=== PATIENT | male | born 1975 | race Caucasian/White ===

== ENCOUNTER 2019-10-17 17:49 | Emergency (ER) | payer MEDICAID, SELFPAY ==
[2019-10-17 17:49] VITALS: BP 130/76; PULSE 94; RESP 18; TEMP 36.7; O2SAT 95
[2019-10-17 18:04] VITALS: BP 155/93; PULSE 82; RESP 14; TEMP 36.8; O2SAT 96; BMI 25.1
--- NOTE | 2019-10-17 18:30 | PC.NURSE ---
PT STATES THAT HE DOES NOT HAVE A PLAN ON HOW HE WOULD HARM HIMSELF. HE STATES THAT HE IS HAVING SI BECAUSE OF THE PAIN IN HIS BACK. PT IS MUMBLING AND WHEN I ASKED WHAT HE SAYS HE STATES I'M TALKING TO MYSELF . I ASKED HIM IF HE WANTED TO BE SEEN FOR PSYCHIATRIC REASONS AND HE STATES MY MUSCLE RELAXERS ARE NOT WORKING .
--- NOTE | 2019-10-17 18:35 | PC.NURSE ---
during nurse's assessment pt denies SI and denies HI. pt states, my head is just messed up-I've got fucked up feelings .
--- NOTE | 2019-10-17 18:37 | ED_ITS ---
Entered by Nayeli Sanchez, acting as scribe for Oct 17, 2019 17:49 HPI - Psych General: Chief Complaint: Psychiatric Symptoms Stated Complaint: SI Time Seen by Provider: 10/17/19 18:37 Source: patient Mode of arrival: other (police) History of Present Illness: HPI Narrative: 44 yo m came to the er with police. Onset was today. PT states that he thought that he was drinking too much and he called the police so that they could bring him here. Exacerbating factors: alcohol and other (smoke) Associated symptoms: Deny homicidal ideation or suicidal ideation Treatments prior to arrival: none Review of Systems General: Reports: 10 or more systems reviewed and unremarkable except in HPI and below Const: Denies: fever Eyes: Denies: change in vision ENMT: Denies: throat pain Card: Denies: chest pain GI: Denies: abdominal pain : Denies: flank pain Musc: Denies: neck pain Skin/Breast: Denies: rash Neuro: Denies: headache Psych: Denies: anxiety, suicidal ideation or homicidal ideation PFSH ED PFSH: Statuses (acute, chronic, etc) shown below reflect problem list status as previously entered and may not be historically accurate Social History Smoking and tobacco status: current every day smoker Physical Exam Const: COMMON NORMALS: no apparent distress GENERAL APPEARANCE: cooperative Eye: COMMON NORMALS: PERRL GENERAL EYE: normal appearance of both eyes PUPIL: Yes PERRL Chest: COMMONS NORMALS: inspection of chest normal Resp: COMMON NORMALS: normal respiratory effort Psych: COMMON NORMALS: mental status grossly normal and thought process normal ATTITUDE: Yes withdrawn and Yes uncooperative ACTIVITY/MOTOR BEHAVIOR: Yes appropriate eye contact and Yes restless MOOD & AFFECT: Yes irritable THOUGHT PROCESS: normal thought process THOUGHT CONTENT: Yes normal thought content INSIGHT: insight good JUDGEMENT: fair Discharge Plan Discharge Patient Disposition: Left Against Medical Advice Prescriptions: No Action cyclobenzaprine 10 mg tablet 10 mg PO Q8H PRN (Reason: Muscle Spasm) RF: 0 baclofen 20 mg tablet 20 mg PO TID RF: 0 Zoloft 50 mg Tablet 50 mg PO DAILY RF: 0 Referrals: NOT ON FILE,DOCTOR [Primary Care Provider] - Discharge Date/Time: 10/17/19 19:59 Coding Level of Care Code ED Solar Sales Assessor for Chg Fwd Exam Problem Focused The documentation recorded by the Daniel navarro Stephanie Lyn, accurately reflects the service I personally performed and the decisions made by me, Gregg Saha, Oct 17, 2019 17:49
--- NOTE | 2019-10-17 19:09 | PC.NURSE ---
upon entry to the room pt was placed in paper scrubs, all belongings collected, and deployment technician at pt's bedside
[2019-10-17 20:01] VITALS: RESP 14; TEMP 36.8; O2SAT 96
== END 2019-10-17 19:59 | disposition left against medical advice (07) ==
PROVIDERS: Emergency Provider Family Medicine
DX: Z53.21 Procedure and treatment not carried out due to patient leaving prior to being seen by health care provider (principal); F17.210 Nicotine dependence, cigarettes, uncomplicated
CPT/HCPCS: 99281

== ENCOUNTER 2019-10-25 12:26 | Emergency (ER) | payer MEDICAID, SELFPAY ==
[2019-10-25 13:10] VITALS: BP 116/69; PULSE 90; RESP 20; TEMP 36.6; O2SAT 99; BMI 25.1
--- NOTE | 2019-10-25 13:36 | ED_ITS ---
HPI - Extremity Problem General: Chief complaint: Extremity Injury, Upper Stated complaint: right hand swelling Time Seen by Provider: 10/25/19 13:17 History of Present Illness: HPI Narrative: Patient comes in today with injury to the right index finger. Patient reports 3 days ago he had hit his dorsal finger with a hatchet. Patient appears well. Patient appears in moderate pain. Patient reports history of chronic back pain and bipolar and schizophrenia. Review of Systems General: Reports: 10 or more systems reviewed and unremarkable except in HPI and below Musc: Reports: extremity pain (right index finger) PFSH ED PFSH: Statuses (acute, chronic, etc) shown below reflect problem list status as previously entered and may not be historically accurate Social History Smoking and tobacco status: current every day smoker Physical Exam Const: COMMON NORMALS: no apparent distress and oriented x3 GENERAL APPEARANCE: cooperative HENMT: COMMON NORMALS: normocephalic and external nose normal HEAD & SCALP: normal to inspection and normocephalic FACE & SINUS: normal facial exam NOSE: external nose normal GENERAL EAR: hearing not grossly impaired MOUTH: oral and palatal mucosa normal THROAT: posterior oropharynx normal Eye: COMMON NORMALS: PERRL and EOMs intact bilaterally PUPIL: Yes PERRL Neck/C-Spine: COMMON NORMALS: full ROM and no lymphadenopathy Lymph: LYMPHATIC: no lymphedema noted Chest: COMMONS NORMALS: inspection of chest normal and palpation of chest normal Resp: COMMON NORMALS: normal respiratory effort and clear to auscultation bilaterally AUSCULTATION: clear to auscultation bilaterally Cardio: COMMON NORMALS: regular rate and regular rhythm RATE: regular rate RHYTHM: regular rhythm GI: COMMON NORMALS: normal to inspection, nondistended, normoactive bowel sounds and non-tender : COMMON NORMALS: Yes no CVA tenderness BLADDER/KIDNEY EXAM: Yes no CVA tenderness Back/Pelvis: COMMON NORMALS: no CVA tenderness and thoracic and lumbar spine normal to inspection Extremity: NARRATIVE EXTREMITY EXAM: right index finger has healing 2 cm wound to dorsal finger, normal ROM, also note distal healing would that is closed Neuro: COMMON NORMALS: oriented x3, moves all extremities and no focal motor deficits Psych: COMMON NORMALS: mental status grossly normal and cooperative Skin: NARRATIVE SKIN EXAM: wound noted to right index finger Course Vital Signs: Vital signs: Vital Signs Temperature 97.9 F 10/25/19 13:10 Pulse Rate 90 10/25/19 13:10 Respiratory Rate 20 H 10/25/19 13:10 Blood Pressure 116/69 10/25/19 13:10 Pulse Oximetry 99 10/25/19 13:10 MDM - Extremity (Nontraumatic) MDM Narrative: Medical decision making narrative: Patient comes in today for complaints of injury to the right index finger. Patient is concerned about infection. On exam we note an open wound to the proximal dorsal right index finger. It has whitish exudate to the center of the wound. Patient also has a wound to the distal part of the finger to that is closed and healing. Differential diagnosis includes fracture, foreign body, wound infection, laceration. X-rays of the hand noted no fracture or osteomyelitis. Reviewed exam with patient recommended antibiotics for infection. Recommended keeping wound clean and dry and good wound care. Patient reported understanding and agreed to plan. Discharge Plan Discharge Patient Disposition: Home, Self-Care Clinical Impression: Wound infection Laceration of right index finger Qualifiers: Encounter type: initial encounter Damage to nail status: without damage Foreign body presence: with foreign body Qualified Code(s): S61.220A - Laceration with foreign body of right index finger without damage to nail, initial encounter Condition: Stable Prescriptions: New cephalexin 500 mg capsule 500 mg PO TID 10 Days Qty: 30 RF: 0 No Action cyclobenzaprine 10 mg tablet 10 mg PO Q8H PRN (Reason: Muscle Spasm) RF: 0 baclofen 20 mg tablet 20 mg PO TID RF: 0 Zoloft 50 mg Tablet 50 mg PO DAILY RF: 0 Discharge Orders: Discharge Order (Routine); Ordered 10/25/19 Ordered By: Isidoro Giles Referrals: Ceasar Garcia MD [Primary Care Provider] - Discharge Diet: Usual diet Discharge Activity: Limit activity as instructed Activity Restrictions/Additional Instructions: Clean wound daily and when dirty Use mild soap and water Acetaminophen and ibuprofen for pain Cover wound with clean dry dressing Protect wounded finger Take antibiotics as directed Follow-up with primary care in one week Return to ER for high fever worsening pain or new concerns Coding Level of Care Code ED Sports Medicine Physician for Justin Sadler Exam Problem Focused
--- NOTE | 2019-10-25 13:36 | XR_ITS ---
WS: [id number] Right hand, 3 views, 10/25/2019 Clinical Data: injury Comparison: None. Findings: No fractures or dislocations are seen. The epiphyses are normal. The soft tissues are unremarkable. T he joint spaces are normal. Negative right hand. XR/XR hand RT min 3V* [id number] Impression:
[2019-10-25] MEDS: tetanus-dipt-pertussis 0.5 mL SDV IM (14:43)
--- NOTE | 2019-10-25 14:53 | PC.NURSE ---
Irrigated wound to R 2nd finger, applied 2x2 to wound and secured with coban
== END 2019-10-25 14:53 | disposition home or self-care (01) ==
PROVIDERS: Emergency Provider Nurse Practitioner Family; PCP Family Medicine
DX: S61.220A Laceration with foreign body of right index finger without damage to nail, initial encounter (principal); L08.9 Local infection of the skin and subcutaneous tissue, unspecified; W26.8XXA Contact with other sharp object(s), not elsewhere classified, initial encounter; F17.210 Nicotine dependence, cigarettes, uncomplicated
CPT/HCPCS: 73130; 90472; 90715; 99282

== ENCOUNTER 2019-11-16 16:21 | Emergency (ER) | payer MEDICAID, SELFPAY ==
[2019-11-16 16:24] VITALS: BP 113/74; PULSE 90; RESP 18; TEMP 36.7; O2SAT 98; BMI 26.0
--- NOTE | 2019-11-16 17:04 | ED_ITS ---
HPI - Back Pain/Injury General: Chief Complaint: Back Pain/Injury Stated Complaint: BACK PAIN/ ETOH Time Seen by Provider: 11/16/19 16:37 Source: patient Mode of arrival: ambulatory Limitations: no limitations History of Present Illness: HPI Narrative: Patient is a 44-year-old male who presents to ED today with complaints of chronic lower back pain. Patient has been seen here in our facility several times for same symptoms. He states he has had follow-up through primary care as well as neurosurgery. Patient states he does follow with pain management in [place] but states they are only prescribing him diclofenac. He is also taking Zanaflex at night to help him sleep which he states is working well. Patient states his pain today is similar to his chronic pain. He has no new complaints at this time. MD elicited complaint: back pain Onset (ago): year(s) Timing: constant Similar Symptoms Previously: Yes Associated symptoms: Deny abdominal pain, chills, difficulty walking, dysuria, fever(s), nausea or vomiting Review of Systems Const: Denies: fever or chills Card: Denies: chest pain, palpitations or lightheadedness Resp: Denies: shortness of breath GI: Denies: abdominal pain, nausea or vomiting : Denies: flank pain, difficulty urinating or painful urination Musc: Reports: back pain (chronic); Denies: neck pain, extremity pain, extremity swelling, joint pain or joint swelling Skin/Breast: Denies: rash Neuro: Denies: headache, numbness in extremities, weakness in extremities, changes in sensation or difficulty walking Psych: Denies: suicidal ideation or homicidal ideation PFS ED PFSH: Statuses (acute, chronic, etc) shown below reflect problem list status as previously entered and may not be historically accurate Social History Smoking and tobacco status: current every day smoker Physical Exam Const: COMMON NORMALS: no apparent distress, average body habitus, oriented x3, no limitations, alert and well nourished ORIENTATION/CONSCIOUSNESS: Yes oriented to person, Yes oriented to place and Yes oriented to time Neck/C-Spine: COMMON NORMALS: full ROM CERVICAL SPINE: Yes cervical ROM normal and No cervical spine tenderness : COMMON NORMALS: Yes no CVA tenderness BLADDER/KIDNEY EXAM: Yes no CVA tenderness Back/Pelvis: COMMON NORMALS: no CVA tenderness and thoraco-lumbar ROM normal OTHER: pt has chronic pain over his L SI; no acute neurological findings on exam Neuro: COMMON NORMALS: oriented x3, no focal motor deficits, no sensory deficits noted and deep tendon reflexes 2+ bilaterally SENSORIUM/ORIENTATION: Yes alert, Yes oriented to person, Yes oriented to place and Yes oriented to time GAIT: Yes normal gait MOTOR EXAM: strength 5/5 throughout Course Vital Signs: Vital signs: Vital Signs Temperature 98.4 F 11/16/19 17:46 Pulse Rate 92 11/16/19 17:46 Respiratory Rate 16 11/16/19 17:46 Blood Pressure 124/70 11/16/19 17:46 Pulse Oximetry 98 11/16/19 17:46 MDM - Back Pain/Injury MDM Narrative: Medical decision making narrative: will write for steroids/zanaflex; says on pts meds that he takes flexeril and baclofen but pt states he is not taking these Discharge Plan Discharge Patient Disposition: Home, Self-Care Clinical Impression: Chronic back pain Qualifiers: Back pain location: low back pain Back pain laterality: left Sciatica presence: with sciatica Sciatica laterality: sciatica of left side Qualified Code(s): M54.42 - Lumbago with sciatica, left side Condition: Stable Prescriptions: New prednisone 10 mg tablet 60 mg PO DAILY 5 Days Qty: 30 RF: 0 Zanaflex 4 mg capsule 4 mg PO Q8H PRN (Reason: muscle spasticity) Qty: 20 RF: 0 No Action cyclobenzaprine 10 mg tablet 10 mg PO Q8H PRN (Reason: Muscle Spasm) RF: 0 baclofen 20 mg tablet 20 mg PO TID RF: 0 Zoloft 50 mg Tablet 50 mg PO DAILY RF: 0 Discharge Orders: Discharge Order (Routine); Ordered 11/16/19 Ordered By: Aida Dalton Referrals: Ceasar Garcia MD [Primary Care Provider] - Discharge Diet: Usual diet Discharge Activity: Resume usual activity Discharge Date/Time: 11/16/19 17:47 Coding Level of Care Code ED Validation Specialist for Chg Fwd Exam Problem Focused
[2019-11-16] MEDS: dexamethasone 10 mg/mL INJ 8 MG IM (17:25)
[2019-11-16] MEDS: orphenadrine 30 mg/mL Inj 2 mL 60 MG IM (17:28)
[2019-11-16 17:46] VITALS: BP 124/70; PULSE 92; RESP 16; TEMP 36.9; O2SAT 98
== END 2019-11-16 17:47 | disposition home or self-care (01) ==
PROVIDERS: Emergency Provider Physician Assistant; PCP Family Medicine
DX: M54.42 Lumbago with sciatica, left side (principal); G89.29 Other chronic pain; F17.210 Nicotine dependence, cigarettes, uncomplicated
CPT/HCPCS: 96372; 99281; 99284; J1100; J2360

== ENCOUNTER 2019-11-17 18:47 | Inpatient (IN) | payer MEDICAID, SELFPAY ==
--- NOTE | 2019-11-17 18:49 | ED_ITS ---
Entered by Ebony Hall, acting as scribe for Brenda Logan MD, MSM HPI - Psych General: Chief Complaint: Psychiatric Symptoms Stated Complaint: SI Time Seen by Provider: 11/17/19 18:49 Source: patient, EMS and RN notes reviewed Mode of arrival: EMS Limitations: no limitations PFSH ED PFSH: Statuses (acute, chronic, etc) shown below reflect problem list status as previously entered and may not be historically accurate Social History Smoking and tobacco status: current every day smoker Discharge Plan Discharge Prescriptions: No Action cyclobenzaprine 10 mg tablet 10 mg PO Q8H PRN (Reason: Muscle Spasm) RF: 0 baclofen 20 mg tablet 20 mg PO TID RF: 0 Zoloft 50 mg Tablet 50 mg PO DAILY RF: 0 prednisone 10 mg tablet 60 mg PO DAILY 5 Days Qty: 30 RF: 0 Zanaflex 4 mg capsule 4 mg PO Q8H PRN (Reason: muscle spasticity) Qty: 20 RF: 0 Coding Level of Care Code ED Pickling Operator for Justin Sadler
[2019-11-17 18:53] VITALS: BP 136/94; PULSE 73; RESP 20; TEMP 36.6; O2SAT 93
[2019-11-17 18:55] VITALS: BP 136/94; PULSE 73; RESP 20; TEMP 36.6; O2SAT 93
[2019-11-17 18:58] VITALS: BMI 26.0
--- NOTE | 2019-11-17 19:06 | ED_ITS ---
Entered by Kirstie Noel, acting as scribe for HPI - Psych General: Chief Complaint: Psychiatric Symptoms Stated Complaint: SI Time Seen by Provider: 11/17/19 18:49 Source: patient, EMS and RN notes reviewed Mode of arrival: EMS PFS ED PFSH: Statuses (acute, chronic, etc) shown below reflect problem list status as previously entered and may not be historically accurate Social History Smoking and tobacco status: current every day smoker Discharge Plan Discharge Prescriptions: No Action cyclobenzaprine 10 mg tablet 10 mg PO Q8H PRN (Reason: Muscle Spasm) RF: 0 baclofen 20 mg tablet 20 mg PO TID RF: 0 Zoloft 50 mg Tablet 50 mg PO DAILY RF: 0 prednisone 10 mg tablet 60 mg PO DAILY 5 Days Qty: 30 RF: 0 Zanaflex 4 mg capsule 4 mg PO Q8H PRN (Reason: muscle spasticity) Qty: 20 RF: 0 Coding Level of Care Code ED Electric Meter Setter for Justin Sadler
--- NOTE | 2019-11-17 19:11 | W.ED.PSYCH ---
HPI - Psych General: Chief Complaint: Psychiatric Symptoms Stated Complaint: SI Time Seen by Provider: 11/17/19 18:49 History of Present Illness: HPI Narrative: 44-year-old male with a history of multiple psychiatric visits, substance and alcohol abuse, and suicide attempt presents with suicidal ideation. He will not tell me about a plan. He only says I know you, you cock sucker . complaint: suicidal ideation Onset (ago): day(s) History of same: Yes Relieving factors: none Context: recent alcohol abuse Associated psychiatric symptoms: depression and suicidal ideation Associated symptoms: Deny auditory hallucinations If self harm: admits thoughts of self harm Review of Systems Const: Denies: fever or chills Eyes: Denies: change in vision or blurry vision ENMT: Denies: painful swallowing or post nasal drip Card: Denies: chest pain, palpitations, irregular heart rhythm or edema Resp: Denies: shortness of breath, productive cough, non-productive cough or wheezing GI: Denies: abdominal pain, nausea or vomiting : Denies: difficulty urinating or blood in urine Musc: Denies: neck pain, back pain, redness or joint warmth Skin/Breast: Denies: rash Neuro: Denies: headache, dizziness, vertigo or confusion Psych: Denies: auditory hallucinations PFSH ED PFSH: Statuses (acute, chronic, etc) shown below reflect problem list status as previously entered and may not be historically accurate Social History Smoking and tobacco status: current every day smoker Physical Exam Const: ORIENTATION/CONSCIOUSNESS: Yes oriented to person, Yes oriented to place and Yes oriented to time HENMT: COMMON NORMALS: normocephalic, external ears normal and external nose normal HEAD & SCALP: normocephalic; no scalp tenderness FACE & SINUS: normal facial exam NOSE: external nose normal and no nasal discharge EXTERNAL EAR: Yes external ears normal MOUTH: tongue normal THROAT: posterior oropharynx normal; no peritonsillar mass Eye: COMMON NORMALS: PERRL, EOMs intact bilaterally and conjunctivae normal EYELID: eyelids normal CONJUNCTIVA: Yes conjunctivae normal PUPIL: Yes PERRL Chest: COMMONS NORMALS: inspection of chest normal CHEST: No tenderness Resp: COMMON NORMALS: clear to auscultation bilaterally EFFORT & INSPECTION: No tachypneic, No respiratory distress, No retractions, No uses accessory muscles and No tracheal deviation AUSCULTATION: clear to auscultation bilaterally, no rhonchi, no wheezes and lung sounds not diminished Cardio: COMMON NORMALS: regular rate and regular rhythm RATE: regular rate RHYTHM: regular rhythm HEART SOUNDS: no murmurs PERIPHERAL PULSES: radial pulses present GI: INSPECTION: No abdominal distension AUSCULTATION: No hyperactive bowel sounds and No hypoactive bowel sounds PALPATION: No guarding and No rigid PERCUSSION: no dullness to percussion and no tympanic to percussion Neuro: SENSORIUM/ORIENTATION: Yes oriented to person, Yes oriented to place and Yes oriented to time Psych: COMMON NORMALS: speech normal and denies hallucinations ATTITUDE: Yes withdrawn and Yes guarded SPEECH: Yes normal speech MOOD & AFFECT: Yes hostile affect THOUGHT CONTENT: Yes suicidality INSIGHT: limited Skin: COMMON NORMALS: no rashes or lesions noted GENERAL SKIN EXAM: no rashes or lesions noted MDM - Psych Lab Data: Labs: Lab Results 11/17/19 11/17/19 11/17/19 Range/Units 18:59 18:59 19:17 WBC 11.1 H (4.0-10.0) 10^3/ uL RBC 4.23 (4.1-5.3) 10^6/u L Hgb 13.8 (11.7-16.6) g/dL Hct 41.4 L (42.0-52.0) % MCV 97.9 H (80-94) fL MCH 32.6 (28.0-34.0) pg MCHC 33.3 (30.0-36.0) g/dL RDW 12.2 (12.1-15.1) % Plt Count 250 (130-400) 10^3/c mm MPV 10.3 (7.4-10.4) fL Neut % (Auto) 65.8 % Lymph % (Auto) 28.7 % Victoria % (Auto) 5.0 % Eos % (Auto) 0.0 % Baso % (Auto) 0.2 % Neut # (Auto) 7.3 (1.8-7.7) 10^3/u L Lymph # (Auto) 3.2 (0.8-4.8) 10^3/u L Victoria # (Auto) 0.6 (0.2-0.9) 10^3/u L Eos # (Auto) 0.0 (0.0-0.8) 10^3/u L Baso # (Auto) 0.0 (0.0-0.1) 10^3/u L Nucleated RBC % (a uto) 0 % Nucleated RBCs # 0.0 /100WBC Sodium (136-145) mmol/L Potassium (3.5-5.1) mmol/L Chloride (98-107) mmol/L Carbon Dioxide (22-29) mmol/L Anion Gap (5-19) BUN (6-20) mg/dL Creatinine (0.7-1.2) mg/dL GFR Calculation (90-130) mL/min Glucose (74-109) mg/dL Calcium (8.5-10.5) mg/dL Total Bilirubin (0.15-1.2) mg/dL AST (0-40) U/L ALT (0-41) U/L Alkaline Phosphata se (40-130) IU/L Total Protein (6.6-8.7) g/dL Albumin (3.5-5.2) g/dL Globulin (1.3-4.6) g/dL TSH (0.27-4.20) uIU/ mL Urine Color Yellow (Yellow) Urine Appearance Clear (CLEAR) Urine pH 5 (5-7) Ur Specific Gravit y 1.005 (1.005-1.030) Urine Protein Neg (Negative) Urine Glucose (UA) Norm (Normal) Urine Ketones Negative (Negative) Urine Occult Blood Neg (Negative) Urine Nitrate Negative (Negative) Urine Bilirubin Neg (NEGATIVE) Urine Urobilinogen Norm (Negative) mg/dL Ur Leukocyte Nicolasa ase Negative (Negative) Salicylates (3-10) mg/dL Urine Opiates Scre en Negative (Negative) ng/mL Acetaminophen (10-30) ug/mL Ur Barbiturates Sc reen Negative (Negative) ng/mL Ur Phencyclidine S crn Negative (Negative) ng/mL Ur Amphetamines Sc reen Negative (Negative) ng/mL U Benzodiazepines Scrn Negative (Negative) ng/mL Urine Cocaine Scre en Negative (Negative) ng/mL U Marijuana (THC) Screen Negative (Negative) ng/mL Ethyl Alcohol (0-10) mg/dL 02/01/20 Range/Units 19:17 WBC (4.0-10.0) 10^3/ uL RBC (4.1-5.3) 10^6/u L Hgb (11.7-16.6) g/dL Hct (42.0-52.0) % MCV (80-94) fL MCH (28.0-34.0) pg MCHC (30.0-36.0) g/dL RDW (12.1-15.1) % Plt Count (130-400) 10^3/c mm MPV (7.4-10.4) fL Neut % (Auto) % Lymph % (Auto) % Victoria % (Auto) % Eos % (Auto) % Baso % (Auto) % Neut # (Auto) (1.8-7.7) 10^3/u L Lymph # (Auto) (0.8-4.8) 10^3/u L Victoria # (Auto) (0.2-0.9) 10^3/u L Eos # (Auto) (0.0-0.8) 10^3/u L Baso # (Auto) (0.0-0.1) 10^3/u L Nucleated RBC % (a uto) % Nucleated RBCs # /100WBC Sodium 142 (136-145) mmol/L Potassium 3.5 (3.5-5.1) mmol/L Chloride 104 (98-107) mmol/L Carbon Dioxide 21 L (22-29) mmol/L Anion Gap 20.5 H (5-19) BUN 10 (6-20) mg/dL Creatinine 0.6 L (0.7-1.2) mg/dL GFR Calculation 145.7 H (90-130) mL/min Glucose 106 (74-109) mg/dL Calcium 9.7 (8.5-10.5) mg/dL Total Bilirubin 0.2 (0.15-1.2) mg/dL AST 45 H (0-40) U/L ALT 76 H (0-41) U/L Alkaline Phosphata se 80 (40-130) IU/L Total Protein 8.6 (6.6-8.7) g/dL Albumin 5.0 (3.5-5.2) g/dL Globulin 3.6 (1.3-4.6) g/dL TSH 0.17 L (0.27-4.20) uIU/ mL Urine Color (Yellow) Urine Appearance (CLEAR) Urine pH (5-7) Ur Specific Gravit y (1.005-1.030) Urine Protein (Negative) Urine Glucose (UA) (Normal) Urine Ketones (Negative) Urine Occult Blood (Negative) Urine Nitrate (Negative) Urine Bilirubin (NEGATIVE) Urine Urobilinogen (Negative) mg/dL Ur Leukocyte Nicolasa ase (Negative) Salicylates < 0.3 L (3-10) mg/dL Urine Opiates Scre en (Negative) ng/mL Acetaminophen < 5.0 L (10-30) ug/mL Ur Barbiturates Sc reen (Negative) ng/mL Ur Phencyclidine S crn (Negative) ng/mL Ur Amphetamines Sc reen (Negative) ng/mL U Benzodiazepines Scrn (Negative) ng/mL Urine Cocaine Scre en (Negative) ng/mL U Marijuana (THC) Screen (Negative) ng/mL Ethyl Alcohol 236 H (0-10) mg/dL Discharge Plan Discharge Patient Disposition: Admitted As Inpatient Admit Provider: Frandy Navas Discharge Date/Time: 11/17/19 22:05 Coding Level of Care Code ED Electric Power Line Examiner for Justin Sadler
[2019-11-17] MEDS: ziprasidone 20 mg/mL SDV IM (19:18)
[2019-11-17] MEDS: water for injection-sterile 10 ML (19:18)
[2019-11-17 19:20] LABS: Add Urine Microscopic? NO
[2019-11-17 19:23] LABS: Glucose Urine UA Norm (Normal); Protein Urine Neg (Negative); Specific Gravity, Urine 1.005 (1.005-1.030); Urine Appearance Clear (CLEAR); Urine Color Yellow (Yellow); pH Urine 5 (5-7)
[2019-11-17 19:24] LABS: Bilirubin Urine Neg (NEGATIVE); Blood Urine Neg (Negative); Ketones Urine Negative (Negative); Leukocyte Esterase Urine Negative (Negative); Nitrate Urine Negative (Negative); Urobilinogen Urine Norm (Negative)
[2019-11-17 19:27] LABS: Basophils % 0.2 %; Hematocrit 41.4 % (42.0-52.0); Hemoglobin 13.8 g/dL (11.7-16.6); Lymphocytes # 3.2 10^3/uL (0.8-4.8); Lymphocytes % 28.7 %; Mean Corpuscular HGB Conc 33.3 g/dL (30.0-36.0); Mean Corpuscular Hemoglobin 32.6 pg (28.0-34.0); Mean Corpuscular Volume 97.9 fL (80-94); Mean Platelet Volume 10.3 fL (7.4-10.4); Monocytes # 0.6 10^3/uL (0.2-0.9); Neutrophils # 7.3 10^3/uL (1.8-7.7); Neutrophils % 65.8 %; Nucleated Red Blood Cells % 0 %; Platelet Count 250 10^3/cmm (130-400); Red Blood Count 4.23 10^6/uL (4.1-5.3); Red Cell Distribution Width 12.2 % (12.1-15.1); White Blood Count 11.1 10^3/uL (4.0-10.0)
[2019-11-17 19:42] LABS: Amphetamines Screen Urine Negative (Negative); Barbiturates Screen Urine Negative (Negative); Benzodiazepines Screen Urine Negative (Negative); Cocaine Screen Urine Negative (Negative); Opiate Screen Urine Negative (Negative); PCP Screen Urine Negative (Negative); THC Screen Urine Negative (Negative)
[2019-11-17 19:52] LABS: Acetaminophen < 5.0 ug/mL (10-30); Alanine Aminotransferase 76 U/L (0-41); Alcohol Level 236 mg/dL (0-10); Alkaline Phosphatase 80 IU/L (40-130); Anion Gap 20.5 (5-19); Aspartate Amino Transferase 45 U/L (0-40); Blood Urea Nitrogen 10 mg/dL (6-20); Calcium 9.7 mg/dL (8.5-10.5); Carbon Dioxide 21 mmol/L (22-29); Chloride 104 mmol/L (98-107); Creatinine Clr Calc Pharmacy 173.9661; Globulin 3.6 g/dL (1.3-4.6); Glomerular Filtration Rate 145.7 mL/min (90-130); Glucose 106 mg/dL (74-109); Potassium 3.5 mmol/L (3.5-5.1); Salicylate < 0.3 mg/dL (3-10); Sodium 142 mmol/L (136-145); Thyroid Stimulating Hormone 0.17 uIU/mL (0.27-4.20); Total Bilirubin 0.2 mg/dL (0.15-1.2); Total Protein 8.6 g/dL (6.6-8.7)
--- NOTE | 2019-11-17 21:28 | PC.NURSE ---
pt refused vitals
[2019-11-17 22:29] VITALS: BP 124/75; PULSE 85; RESP 18; TEMP 36.5; O2SAT 96
[2019-11-18 06:00] VITALS: BP 124/77; PULSE 63; RESP 16; TEMP 36.8; O2SAT 97
[2019-11-18] MEDS: folic acid 1 mg Tablet PO (09:20)
[2019-11-18] MEDS: thiamine 100 mg Tablet PO (09:20)
[2019-11-18] MEDS: multivitamin therapeutic Tablet 1 TAB PO (09:20)
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
[2019-11-18 14:00] VITALS: BP 124/77; PULSE 63; RESP 16; TEMP 36.8; O2SAT 97
[2019-11-18] MEDS: sertraline 50 mg Tablet PO (14:36)
[2019-11-18] MEDS: OLANZapine 5 mg TABLET 7.5 MG PO (14:36)
[2019-11-18] MEDS: OLANZapine 10 mg TABLET 15 MG PO (20:26)
[2019-11-18 22:00] VITALS: BP 113/69; PULSE 61; RESP 18; TEMP 36.9; O2SAT 98
[2019-11-19 06:00] VITALS: BP 103/68; PULSE 107; RESP 17; TEMP 36.6; O2SAT 97
[2019-11-19] MEDS: folic acid 1 mg Tablet PO (09:10)
[2019-11-19] MEDS: thiamine 100 mg Tablet PO (09:10)
[2019-11-19] MEDS: multivitamin therapeutic Tablet 1 TAB PO (09:10)
[2019-11-19] MEDS: sertraline 50 mg Tablet PO (09:10)
[2019-11-19 14:00] VITALS: BP 114/77; PULSE 74; RESP 16; TEMP 36.3; O2SAT 98
--- NOTE | 2019-11-19 17:02 | P.PN_ITS ---
Subjective NPU Subjective: Interval history: Rob presents today continuing to be fairly nonverbal and noninteractive on the unit. Mostly pacing. He does report however that the medication has been helpful and he feels much better once he is restarted. We discussed his plans moving forward and as has been common with him with hospitalizations he is now reporting a desire to leave. I raised the question of ongoing substance abuse treatment which she was not very committed to. Mental Status Exam MSE Comments: There is a well-nourished, well-developed white male with adequate dress, limited grooming and eye contact. No abnormal movements except for psychomotor retardation. Cooperative on exam in no acute distress. Speech is decreased rate and volume. Mood described as better, affect subdued, but less irritable. Thought process linear. Thought content: Patient denied any suicidal or homicidal ideation, there were no delusions reported but he does appear paranoid. He denied any auditory or visual hallucinations. Attention and concentration were limited, but improved and memory was unreliable but none were formally tested. He is alert and oriented ?3. Insight and judgment are impaired. Vitals/I&O/Wt Last Vital Signs Temperature 98.0, pulse of 58, respirations 17, pulse ox 98%, blood pressure 126/80. Data NPU : 11/17/19 19:17 11/17/19 19:17 A&P Additional A&P Information This is a 44-year-old white male with a long history of psychosis and alcohol use who presents similar to his last hospitalization became very irritable withdrawn from alcohol and being off this medication. 1. Continue current medication. 2. Encourage individual, group and milieu therapy. 3. Continue every 15 minute checks for safety. 4. Encourage sober living follow-up at the highest level of care to which he is willing to commit. Involuntary Hold Information 96 Hour Hold: 96 Hour Involuntary Admission: No Attestations NPU Medical Necessity Statement*: Inpatient hospitalization is medically necessary and the clinically appropriate intervention at this time. We will continue medications, monitor and titrate to effect. Tentative plan for d/c tomorrow. Likely length of stay 1-3 days. Coding Level of Care Code Acute Electrician Outside for Justin Sadler
[2019-11-19] MEDS: OLANZapine 10 mg TABLET 15 MG PO (20:22)
[2019-11-19 21:27] VITALS: BP 126/80; PULSE 58; RESP 17; TEMP 36.7; O2SAT 98
[2019-11-20 06:00] VITALS: BP 119/78; PULSE 48; RESP 16; TEMP 36.6; O2SAT 98
[2019-11-20] MEDS: folic acid 1 mg Tablet PO (08:38)
[2019-11-20] MEDS: multivitamin therapeutic Tablet 1 TAB PO (08:38)
[2019-11-20] MEDS: sertraline 50 mg Tablet PO (08:38)
[2019-11-20] MEDS: thiamine 100 mg Tablet PO (08:38)
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
[2019-11-20 13:35] VITALS: BP 119/78; PULSE 88; RESP 16; TEMP 36.6; O2SAT 98
== END 2019-11-20 14:04 | disposition home or self-care (01) | DRG 897 ==
LOC: ER 19:47 → NP 20:58
PROVIDERS: Admitting Provider Psychiatry & Neurology Psychiatry; Emergency Provider Emergency Medicine; PCP Family Medicine; Visit Provider Psychiatry & Neurology Psychiatry
DX: F10.229 Alcohol dependence with intoxication, unspecified (principal); R45.851 Suicidal ideations; F23 Brief psychotic disorder; Y90.7 Blood alcohol level of 200-239 mg/100 ml; G89.29 Other chronic pain; M54.9 Dorsalgia, unspecified; F17.210 Nicotine dependence, cigarettes, uncomplicated
CPT/HCPCS: 12345; 80053; 80307; 81003; 84443; 85025; 96372; 99284; 99285; J3486

== ENCOUNTER 2019-11-17 18:47 | Emergency (ER) | payer MEDICAID, SELFPAY | END 2019-11-17 22:05 | disposition admitted as inpatient to this hospital (09) | LOC: ER 12-06 08:02 | PROVIDERS: Emergency Provider Emergency Medicine; PCP Family Medicine | DX: R45.851 Suicidal ideations (principal); F10.10 Alcohol abuse, uncomplicated; Y90.7 Blood alcohol level of 200-239 mg/100 ml; F17.210 Nicotine dependence, cigarettes, uncomplicated | CPT/HCPCS: 80053; 80307; 81003; 84443; 85025; 96372; 99284; J3486 ==

== ENCOUNTER → 2019-12-14 09:49 | Outpatient (BNVA) | payer MEDICAID, SELFPAY | PROVIDERS: PCP Family Medicine; Visit Provider Nurse Practitioner | DX: F20.9 Schizophrenia, unspecified (principal); F10.21 Alcohol dependence, in remission; F31.64 Bipolar disorder, current episode mixed, severe, with psychotic features; F17.210 Nicotine dependence, cigarettes, uncomplicated | CPT/HCPCS: 99213 ==

== ENCOUNTER → 2020-01-08 07:40 | Outpatient (BNVA) | payer MEDICAID, SELFPAY | PROVIDERS: PCP Family Medicine; Visit Provider Nurse Practitioner | DX: F31.64 Bipolar disorder, current episode mixed, severe, with psychotic features (principal); F10.21 Alcohol dependence, in remission; F17.210 Nicotine dependence, cigarettes, uncomplicated | CPT/HCPCS: 99214 ==

== ENCOUNTER 2020-01-09 17:36 | Inpatient (IN) | payer MEDICAID, SELFPAY ==
[2020-01-09 17:41] VITALS: BP 142/80; PULSE 82; RESP 15; TEMP 36.6; O2SAT 99; BMI 25.1
--- NOTE | 2020-01-09 17:48 | ED_ITS ---
Entered by Deepa Landry, acting as scribe for Rmoario Ahmadi MD Jan 09, 2020 17:36 HPI - Psych General: Chief Complaint: Psychiatric Symptoms Stated Complaint: WANTS NPU Time Seen by Provider: 01/09/20 17:47 Source: patient Mode of arrival: ambulatory Limitations: no limitations History of Present Illness: HPI Narrative: 44 yo male presents with depression . pt states he has a hx of overdose before. pt states his symptoms are getting worse. pt denies any other symptoms at this time. MD complaint: feels depressed Duration: constant and getting worse History of same: Yes Associated symptoms: Reports depression Review of Systems General: Reports: 10 or more systems reviewed and unremarkable except in HPI and below Const: Denies: fever, chills, body aches or change in appetite Eyes: Denies: blurry vision or eye discomfort ENMT: Denies: throat pain or dental pain Card: Denies: chest pain Resp: Denies: shortness of breath GI: Denies: abdominal pain, nausea, vomiting or diarrhea : Denies: painful urination Musc: Denies: joint warmth Skin/Breast: Denies: rash Neuro: Denies: headache Psych: Reports: depression Stanton/Lymph: Denies: easy bruising All/Imm: Denies: hives PFSH ED PFSH: Medical History (Updated 12/14/19 @ 10:12 by Marcela Guy [facility]) Alcohol dependence, in remission Bipolar disorder, current episode mixed, severe, with psychotic features Nicotine dependence, cigarettes, uncomplicated Other stimulant dependence, in remission Social History (Updated 12/14/19 @ 09:53 by Negin Garcia LPN) Smoking and tobacco status: current every day smoker cigarettes Packs smoked per day: 1 Smoking risk assessment/counseling performed?: Yes Tobacco counseling given: counseling >3 minutes Physical Exam Const: COMMON NORMALS: no apparent distress, oriented x3 and healthy appearing HENMT: COMMON NORMALS: normocephalic and head/scalp atraumatic HEAD & SCALP: normocephalic and atraumatic Eye: COMMON NORMALS: PERRL and EOMs intact bilaterally PUPIL: Yes PERRL Neck/C-Spine: COMMON NORMALS: full ROM and supple Chest: COMMONS NORMALS: inspection of chest normal and palpation of chest normal Resp: COMMON NORMALS: normal respiratory effort, no retractions, no use of accessory muscles and clear to auscultation bilaterally AUSCULTATION: clear t o auscultation bilaterally Cardio: COMMON NORMALS: regular rate, regular rhythm and no murmurs RATE: regular rate RHYTHM: regular rhythm GI: COMMON NORMALS: normal to inspection, nondistended, normoactive bowel sounds, soft to palpation, non-tender and no masses PALPATION: Yes soft Extremity: COMMON NORMALS: normal to inspection and full ROM Neuro: COMMON NORMALS: oriented x3, moves all extremities and no focal motor deficits Psych: COMMON NORMALS: mental status grossly normal and cooperative ATTITUDE: Yes uncooperative MOOD & AFFECT: Yes depressed mood THOUGHT CONTENT: Yes suicidality Skin: COMMON NORMALS: no rashes or lesions noted and no wounds GENERAL SKIN EXAM: no rashes or lesions noted MDM - Psych MDM Narrative: Medical decision making narrative: Patient presents here with suicidal ideation and was placed under 96-hour hold. Patient here is medically cleared and I spoke to psychiatrist Dr. Navas and will admit at this time. Lab Data: Labs: Lab Results 01/09/20 01/09/20 01/09/20 Range/Units 17:50 17:50 18:15 WBC 8.3 (4.0-10.0) 10^3/ uL RBC 4.24 (4.1-5.3) 10^6/u L Hgb 14.0 (11.7-16.6) g/dL Hct 43.1 (42.0-52.0) % MCV 101.7 H (80-94) fL MCH 33.0 (28.0-34.0) pg MCHC 32.5 (30.0-36.0) g/dL RDW 12.3 (12.1-15.1) % Plt Count 229 (130-400) 10^3/c mm MPV 10.0 (7.4-10.4) fL Neut % (Auto) 45.6 % Lymph % (Auto) 45.0 % Perry % (Auto) 6.1 % Eos % (Auto) 2.5 % Baso % (Auto) 0.8 % Neut # (Auto) 3.8 (1.8-7.7) 10^3/u L Lymph # (Auto) 3.8 (0.8-4.8) 10^3/u L Perry # (Auto) 0.5 (0.2-0.9) 10^3/u L Eos # (Auto) 0.2 (0.0-0.8) 10^3/u L Baso # (Auto) 0.1 (0.0-0.1) 10^3/u L Nucleated RBC % (a uto) 0 % Nucleated RBCs # 0.0 /100WBC Sodium (136-145) mmol/L Potassium (3.5-5.1) mmol/L Chloride (98-107) mmol/L Carbon Dioxide (22-29) mmol/L Anion Gap (5-19) BUN (6-20) mg/dL Creatinine (0.7-1.2) mg/dL GFR Calculation (90-130) mL/min Glucose (65-115) mg/dL Calculated Osmolal ity (285-295) mOsm/k g Calcium (8.5-10.5) mg/dL Total Bilirubin (0.15-1.2) mg/dL AST (0-40) U/L ALT (0-41) U/L Alkaline Phosphata se (40-130) IU/L Total Protein (6.6-8.7) g/dL Albumin (3.5-5.2) g/dL Globulin (1.3-4.6) g/dL Urine Color Colorless (Yellow) Urine Appearance Clear (CLEAR) Urine pH 5.0 (5-7) Ur Specific Gravit y 1.005 (1.005-1.030) Urine Protein Neg (Negative) Urine Glucose (UA) Norm (Normal) Urine Ketones Negative (Negative) Urine Blood Neg (Negative) Urine Nitrate Negative (Negative) Urine Bilirubin Neg (NEGATIVE) Urine Urobilinogen Norm (Negative) mg/dL Ur Leukocyte Nicolasa ase Negative (Negative) Urine Opiates Scre en Negative (Negative) ng/mL Acetaminophen (10-30) ug/mL Ur Barbiturates Sc reen Negative (Negative) ng/mL Ur Phencyclidine S crn Negative (Negative) ng/mL Ur Amphetamines Sc reen Negative (Negative) ng/mL U Benzodiazepines Scrn Negative (Negative) ng/mL Urine Cocaine Scre en Negative (Negative) ng/mL U Marijuana (THC) Screen Negative (Negative) ng/mL Ethyl Alcohol (0-10) mg/dL 01/08/ Range/Units 18:15 WBC (4.0-10.0) 10^3/ uL RBC (4.1-5.3) 10^6/u L Hgb (11.7-16.6) g/dL Hct (42.0-52.0) % MCV (80-94) fL MCH (28.0-34.0) pg MCHC (30.0-36.0) g/dL RDW (12.1-15.1) % Plt Count (130-400) 10^3/c mm MPV (7.4-10.4) fL Neut % (Auto) % Lymph % (Auto) % Perry % (Auto) % Eos % (Auto) % Baso % (Auto) % Neut # (Auto) (1.8-7.7) 10^3/u L Lymph # (Auto) (0.8-4.8) 10^3/u L Perry # (Auto) (0.2-0.9) 10^3/u L Eos # (Auto) (0.0-0.8) 10^3/u L Baso # (Auto) (0.0-0.1) 10^3/u L Nucleated RBC % (a uto) % Nucleated RBCs # /100WBC Sodium 142 (136-145) mmol/L Potassium 3.9 (3.5-5.1) mmol/L Chloride 104 (98-107) mmol/L Carbon Dioxide 22 (22-29) mmol/L Anion Gap 19.9 H (5-19) BUN 10 (6-20) mg/dL Creatinine 0.6 L (0.7-1.2) mg/dL GFR Calculation 145.7 H (90-130) mL/min Glucose 97 (65-115) mg/dL Calculated Osmolal ity 290 (285-295) mOsm/k g Calcium 9.6 (8.5-10.5) mg/dL Total Bilirubin 0.2 (0.15-1.2) mg/dL AST 68 H (0-40) U/L ALT 97 H (0-41) U/L Alkaline Phosphata se 78 (40-130) IU/L Total Protein 7.6 (6.6-8.7) g/dL Albumin 4.3 (3.5-5.2) g/dL Globulin 3.3 (1.3-4.6) g/dL Urine Color (Yellow) Urine Appearance (CLEAR) Urine pH (5-7) Ur Specific Gravit y (1.005-1.030) Urine Protein (Negative) Urine Glucose (UA) (Normal) Urine Ketones (Negative) Urine Blood (Negative) Urine Nitrate (Negative) Urine Bilirubin (NEGATIVE) Urine Urobilinogen (Negative) mg/dL Ur Leukocyte Nicolasa ase (Negative) Urine Opiates Scre en (Negative) ng/mL Acetaminophen < 5.0 L (10-30) ug/mL Ur Barbiturates Sc reen (Negative) ng/mL Ur Phencyclidine S crn (Negative) ng/mL Ur Amphetamines Sc reen (Negative) ng/mL U Benzodiazepines Scrn (Negative) ng/mL Urine Cocaine Scre en (Negative) ng/mL U Marijuana (THC) Screen (Negative) ng/mL Ethyl Alcohol 133 H (0-10) mg/dL Discharge Plan Discharge Prescriptions: No Action Zoloft 50 mg tablet 50 mg PO DAILY 30 Days Qty: 30 RF: 1 olanzapine 10 mg tablet 15 mg PO BEDTIME 30 Days Qty: 45 RF: 1 hydroxyzine HCl 50 mg tablet 50 mg PO BID PRN (Reason: anxiety) Qty: 60 RF: 1 Coding Level of Care Code ED [employer] 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
[2020-01-09 18:25] LABS: Basophils # 0.1 10^3/uL (0.0-0.1); Basophils % 0.8 %; Eosinophils # 0.2 10^3/uL (0.0-0.8); Eosinophils % 2.5 %; Hematocrit 43.1 % (42.0-52.0); Lymphocytes # 3.8 10^3/uL (0.8-4.8); Mean Corpuscular HGB Conc 32.5 g/dL (30.0-36.0); Mean Corpuscular Volume 101.7 fL (80-94); Monocytes # 0.5 10^3/uL (0.2-0.9); Monocytes % 6.1 %; Neutrophils # 3.8 10^3/uL (1.8-7.7); Neutrophils % 45.6 %; Nucleated Red Blood Cells % 0 %; Platelet Count 229 10^3/cmm (130-400); Red Blood Count 4.24 10^6/uL (4.1-5.3); Red Cell Distribution Width 12.3 % (12.1-15.1); White Blood Count 8.3 10^3/uL (4.0-10.0)
[2020-01-09 18:41] LABS: Alanine Aminotransferase 97 U/L (0-41); Albumin Level 4.3 g/dL (3.5-5.2); Alcohol Level 133 mg/dL (0-10); Alkaline Phosphatase 78 IU/L (40-130); Anion Gap 19.9 (5-19); Aspartate Amino Transferase 68 U/L (0-40); Blood Urea Nitrogen 10 mg/dL (6-20); Calcium 9.6 mg/dL (8.5-10.5); Carbon Dioxide 22 mmol/L (22-29); Chloride 104 mmol/L (98-107); Globulin 3.3 g/dL (1.3-4.6); Glomerular Filtration Rate 145.7 mL/min (90-130); Glucose 97 mg/dL (65-115); Osmolality Calculated 290 mOsm/kg (285-295); Potassium 3.9 mmol/L (3.5-5.1); Sodium 142 mmol/L (136-145); Total Bilirubin 0.2 mg/dL (0.15-1.2); Total Protein 7.6 g/dL (6.6-8.7)
[2020-01-09 18:49] LABS: Acetaminophen < 5.0 ug/mL (10-30)
[2020-01-09 19:00] LABS: Add Urine Microscopic? NO
[2020-01-09 19:03] LABS: Bilirubin Urine Neg (NEGATIVE); Blood Urine Neg (Negative); Glucose Urine UA Norm (Normal); Ketones Urine Negative (Negative); Leukocyte Esterase Urine Negative (Negative); Nitrate Urine Negative (Negative); Protein Urine Neg (Negative); Specific Gravity, Urine 1.005 (1.005-1.030); Urine Appearance Clear (CLEAR); Urine Color Colorless (Yellow); Urobilinogen Urine Norm (Negative)
[2020-01-09 19:11] LABS: Amphetamines Screen Urine Negative (Negative); Barbiturates Screen Urine Negative (Negative); Benzodiazepines Screen Urine Negative (Negative); Cocaine Screen Urine Negative (Negative); Opiate Screen Urine Negative (Negative); PCP Screen Urine Negative (Negative); THC Screen Urine Negative (Negative)
[2020-01-09 20:20] VITALS: BP 136/59; PULSE 78; RESP 17; O2SAT 97
[2020-01-09 21:12] VITALS: BP 112/70; PULSE 78; RESP 18; TEMP 36.8; O2SAT 97
[2020-01-09] MEDS: trazodone 50 mg Tablet PO (21:25)
--- NOTE | 2020-01-09 21:25 | PC.NURSE ---
Pt given PRN trazodone given per pt request.
[2020-01-09 22:00] VITALS: BP 112/70; PULSE 78; RESP 18; TEMP 36.8; O2SAT 97
[2020-01-10 06:00] VITALS: BP 101/65; PULSE 59; RESP 16; TEMP 36.6; O2SAT 98
[2020-01-10] MEDS: sertraline 50 mg Tablet PO (08:43)
[2020-01-10 14:00] VITALS: BP 124/81; PULSE 70; RESP 18; TEMP 36.8; O2SAT 98
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
[2020-01-10 17:00] VITALS: BP 124/81; PULSE 70; RESP 18; TEMP 36.8; O2SAT 98
== END 2020-01-10 17:15 | disposition home or self-care (01) | DRG 881 ==
LOC: ER 17:48 → NP 20:19
PROVIDERS: Family Medicine; Admitting Provider Psychiatry & Neurology Psychiatry; Emergency Provider Emergency Medicine; PCP Family Medicine; Visit Provider Psychiatry & Neurology Psychiatry
DX: F32.9 Major depressive disorder, single episode, unspecified (principal); F17.210 Nicotine dependence, cigarettes, uncomplicated; F10.21 Alcohol dependence, in remission; F15.21 Other stimulant dependence, in remission
CPT/HCPCS: 12345; 36415; 80053; 80306; 80307; 81003; 85025; 99284

== ENCOUNTER 2020-01-09 17:36 | Emergency (ER) | payer MEDICAID, SELFPAY | END 2020-01-09 20:23 | disposition admitted as inpatient to this hospital (09) | PROVIDERS: Emergency Provider Emergency Medicine; PCP Family Medicine | DX: F31.64 Bipolar disorder, current episode mixed, severe, with psychotic features (principal); F17.210 Nicotine dependence, cigarettes, uncomplicated | CPT/HCPCS: 12345; 36415; 80053; 80306; 80307; 81003; 85025; 99284; 99285 ==

== ENCOUNTER 2020-03-06 19:10 | Emergency (ER) | payer MEDICAID, SELFPAY ==
[2020-03-06 19:17] VITALS: BP 135/73; PULSE 108; RESP 16; TEMP 36.6; O2SAT 97; BMI 25.1
--- NOTE | 2020-03-06 19:31 | W.ED.BACK ---
HPI - Back Pain/Injury General: Chief Complaint: Back Pain/Injury Stated Complaint: Back Pain Lower left Time Seen by Provider: 03/06/20 19:24 History of Present Illness: HPI Narrative: Patient is a 44-year-old male who comes to the ED with acute on chronic lower back pain. Patient says chronic back pain is started about little over a year ago. He says within the last week his lower back pain is gotten worse. He states around 3 to 5 days ago he received a steroid shot in [facility] in the left lower hip to help with lower back pain. He is still having acute lower back pain but does not have any pain radiating down his left leg. Patient states that his pain was so bad today that he drank alcohol to help with pain. He denies any injury, fall or trauma causing acute lower back pain. Denies any bladder or bowel incontinence. Associated symptoms: Deny abdominal pain, chills, dysuria, fatigue, fever(s), hematuria, nausea or vomiting Review of Systems Const: Denies: fever(s), chills or fatigue Eyes: Denies: change in vision or eye discomfort ENMT: Denies: throat pain, odynophagia, nasal discharge or nasal congestion Card: Denies: chest pain, palpitations, edema, swelling of feet/ankles, dyspnea on exertion or orthopnea Resp: Denies: dyspnea, productive cough or non-productive cough GI: Denies: abdominal pain, nausea, vomiting, diarrhea, constipation or hematochezia : Denies: flank pain, difficulty urinating, dysuria or hematuria Musc: Reports: back pain; Denies: neck pain or extremity swelling Skin/Breast: Denies: rash or new lesions Neuro: Denies: headache(s), numbness in extremities or weakness in extremities [facility] ED PFSH: Medical History Alcohol dependence, in remission Bipolar disorder, current episode mixed, severe, with psychotic features Nicotine dependence, cigarettes, uncomplicated Other stimulant dependence, in remission Social History Smoking and tobacco status: current every day smoker cigarettes Packs smoked per day: 1 Smoking risk assessment/counseling performed?: Yes Tobacco counseling given: counseling >3 minutes Physical Exam Narrative: EXAM NARRATIVE: Patient is a 44-year-old male who was laying on the exam bed when entered the room. He is slurring his words and smells of alcohol. Const: COMMON NORMALS: patient oriented x3 and alert GENERAL APPEARANCE: cooperative and odor of alcohol detected HENMT: COMMON NORMALS: normocephalic HEAD & SCALP: normocephalic MOUTH: Normal oral and palatal mucosa present THROAT: posterior oropharynx normal and uvula midline Neck/C-Spine: COMMON NORMALS: supple GENERAL: Yes normal visual inspection Resp: COMMON NORMALS: normal respiratory effort, No retractions, No use of accessory muscles and clear to auscultation bilaterally AUSCULTATION: clear to auscultation bilaterally Cardio: COMMON NORMALS: regular rate, regular rhythm, S1 normal heart sound present, S2 normal heart sound present, No gallops present (Cardio), No clicks present (Cardio), No murmurs present (Cardio) and Peripheral pulses 2+ throughout RATE: regular rate RHYTHM: regular rhythm HEART SOUNDS: S1 normal heart sound present and S2 normal heart sound present PERIPHERAL PULSES: Peripheral pulses 2+ throughout GI: COMMON NORMALS: Normal to inspection, nondistended, normoactive bowel sounds present, Soft to palpation, non-tender and no masses PALPATION: Yes Soft to palpation : COMMON NORMALS: Yes no CVA tenderness BLADDER/KIDNEY EXAM: Yes no CVA tenderness Back/Pelvis: COMMON NORMALS: no CVA tenderness LUMBAR SPINE/LOWER BACK: No lumbar spinal tenderness, Yes paraspinal muscle tenderness Lumbar paraspinal muscle tenderness: left and No straight leg raise positive left Extremity: COMMON NORMALS: normal to inspection and no pedal edema Neuro: COMMON NORMALS: patient oriented x3 and moves all extremities SENSORIUM/ORIENTATION: Yes alert SPEECH: Other neuro speech findings (speech is slurred a little and admits to drinking alcohol and smells of it.) GAIT: Yes Normal gait present Skin: COMMON NORMALS: no rashes or lesions noted GENERAL SKIN EXAM: no rashes or lesions noted and dry skin Course Vital Signs: Vital signs: Vital Signs Temperature 97.9 F 03/06/20 19:17 Pulse Rate 68 03/06/20 20:26 Respiratory Rate 18 03/06/20 20:26 Blood Pressure 144/65 03/06/20 20:26 Pulse Oximetry 98 03/06/20 20:26 MDM - Back Pain/Injury MDM Narrative: Medical decision making narrative: Patient is a 44-year-old male who comes in with acute on chronic lower back pain. Denies any pain radiating down legs, bladder or bowel incontinence or pelvic anesthesia. Physical exam showed left lumbar paraspinal muscle tenderness with a negative straight leg raise. Patient was given Norflex and Toradol while here in the ED. Patient was discharged given a prescription for Robaxin and told to take ibuprofen 800 mg 3 times a day to help with pain and inflammation. Follow-up with PCP in 7 to 10 days. Patient understood and agreed with plan. Discharge Plan Discharge Patient Disposition: Home, Self-Care Clinical Impression: Lumbar back pain Condition: Stable Prescriptions: New Robaxin-750 750 mg tablet 750 mg PO Q8H Qty: 20 RF: 0 No Action Zoloft 50 mg tablet 50 mg PO DAILY 30 Days Qty: 30 RF: 1 olanzapine 10 mg tablet 15 mg PO BEDTIME 30 Days Qty: 45 RF: 1 hydroxyzine HCl 50 mg tablet 50 mg PO BID PRN (Reason: anxiety) Qty: 60 RF: 1 Discharge Orders: Discharge Order (Routine); Ordered 03/06/20 Ordered By: Daniel Woodard Referrals: Ceasar Garcia MD [Primary Care Provider] - Discharge Diet: Regular Discharge Activity: Increase activity as tolerated Patient Instructions: Acute Low Back Pain (ED), Back Pain (ED) Activity Restrictions/Additional Instructions: Follow-up with your PCP in 7 to 10 days for reevaluation. Take the muscle relaxer Robaxin at night to help with pain and comfort when you sleep. Remember Robaxin can cause some drowsiness so use with caution during the day. You can also take [id number] ibuprofen up to 800 mg 3 times a day to help with pain and inflammation lower back. Apply cold pack or heat on lower back to help with symptoms. Stretch lower back daily. Discharge Date/Time: 03/06/20 20:28 Coding Level of Care Code ED Human Resource Management Instructor for Justin Sadler Exam Comprehensive
[2020-03-06] MEDS: ketorolac 60 mg/2 mL INJ IM (20:21)
[2020-03-06] MEDS: orphenadrine 30 mg/mL Inj 2 mL 60 MG IM (20:25)
[2020-03-06 20:26] VITALS: BP 144/65; PULSE 68; RESP 18; O2SAT 98
== END 2020-03-06 20:28 | disposition home or self-care (01) ==
PROVIDERS: Emergency Provider Physician Assistant; PCP Family Medicine
DX: M54.5 Low back pain (principal); F17.210 Nicotine dependence, cigarettes, uncomplicated
CPT/HCPCS: 12345; 96372; 99281; 99283; J1885; J2360

== ENCOUNTER 2020-04-13 06:14 | Emergency (ER) | payer MEDICAID, SELFPAY ==
[2020-04-13 06:22] VITALS: BP 143/95; PULSE 86; RESP 16; TEMP 36.7; O2SAT 96; BMI 24.4
--- NOTE | 2020-04-13 06:47 | ED_ITS ---
HPI - Skin/Abscess/Foreign Bdy General: Chief complaint: Skin/Abscess/Foreign Body Stated complaint: FISH HOOK IN FINGER Time Seen by Provider: 04/13/20 06:15 History of Present Illness: HPI narrative: Patient has a fishhook embedded beyond the gaby in his right little finger complaint: foreign body Onset (ago): minute(s) Tetanus up to date: yes Location: R hand Review of Systems General: Reports: 10 or more systems reviewed and unremarkable except in HPI and below PFSH ED PFSH: Medical History Alcohol dependence, in remission Bipolar disorder, current episode mixed, severe, with psychotic features Nicotine dependence, cigarettes, uncomplicated Other stimulant dependence, in remission Social History Smoking and tobacco status: current every day smoker cigarettes Packs smoked per day: 1 Smoking risk assessment/counseling performed?: Yes Tobacco counseling given: counseling >3 minutes Physical Exam Skin: NARRATIVE SKIN EXAM: 1 Mary Ann of a treble fishhook embedded in the palmar aspect of the right little finger Procedures Foreign Body Removal Site: right and hand Description of foreign body: fish hook Sedation/Analgesia: none Technique: removal with forceps Confirmed by:: direct visualization Complications: none Post-procedure exam: awake, alert Neurovascular: distal motor function normal Course Vital Signs: Vital signs: Vital Signs Temperature 98.0 F 04/13/20 06:22 Pulse Rate 86 04/13/20 06:22 Respiratory Rate 16 04/13/20 06:22 Blood Pressure 143/95 04/13/20 06:22 Pulse Oximetry 96 04/13/20 06:22 Discharge Plan Discharge Patient Disposition: Home, Self-Care Clinical Impression: Fish hook injury of finger of right hand Qualifiers: Encounter type: initial encounter Qualified Code(s): S69.91XA - Unspecified injury of right wrist, hand and finger(s), initial encounter Condition: Stable Prescriptions: New ciprofloxacin HCl 500 mg tablet 500 mg PO BID Qty: 20 RF: 0 Tylenol-Codeine #3 300-30 mg tablet 1 tab PO Q4H PRN (Reason: pain) Qty: 10 RF: 0 No Action Zoloft 50 mg tablet 50 mg PO DAILY 30 Days Qty: 30 RF: 1 olanzapine 10 mg tablet 15 mg PO BEDTIME 30 Days Qty: 45 RF: 1 hydroxyzine HCl 50 mg tablet 50 mg PO BID PRN (Reason: anxiety) Qty: 60 RF: 1 Robaxin-750 750 mg tablet 750 mg PO Q8H Qty: 20 RF: 0 Discharge Orders: Discharge Order (Routine); Ordered 04/13/20 Ordered By: Gregg Saha Referrals: Ceasar Garcia MD [Primary Care Provider] - Coding Level of Care Code ED Senior Buyer Planner for Shirleyg Viktoriya
[2020-04-13] MEDS: lidocaine 1% INJ 20 mL INJECTION (06:52)
[2020-04-13] MEDS: water for injection-sterile 10 ML 2.5 ML (07:19)
[2020-04-13] MEDS: ceFAZolin 1,000 mg SDV 1000 MG IM (07:19)
[2020-04-13 07:23] VITALS: RESP 16; TEMP 36.7; O2SAT 96
== END 2020-04-13 07:24 | disposition home or self-care (01) ==
PROVIDERS: Emergency Provider Family Medicine; PCP Family Medicine
DX: S61.246A Puncture wound with foreign body of right little finger without damage to nail, initial encounter (principal); W26.8XXA Contact with other sharp object(s), not elsewhere classified, initial encounter; F17.210 Nicotine dependence, cigarettes, uncomplicated
CPT/HCPCS: 12345; 96372; 99282; 99283; J0690; J2001

== ENCOUNTER 2020-05-05 15:55 | Emergency (ER) | payer MEDICAID, SELFPAY ==
[2020-05-05 16:07] VITALS: BP 110/73; PULSE 87; RESP 14; TEMP 35.7; O2SAT 97; BMI 24.4
--- NOTE | 2020-05-05 17:42 | ED_ITS ---
HPI - Back Pain/Injury General: Chief Complaint: Back Pain/Injury Stated Complaint: BACK PAIN Time Seen by Provider: 05/05/20 17:42 History of Present Illness: HPI Narrative: Patient is a 45-year-old male who comes to the ED with chronic with lower back pain. He currently sees pain management and has an appointment with them this . He has no new back pain and says his lower back pain is the same chronic pain he has been dealing with. No acute injury, trauma or lifting causing any acute lower back pain. Denies any pain radiating down his legs, bladder or bowel incontinence, pelvic anesthesia. Associated symptoms: Deny abdominal pain, chills, dysuria, fatigue, fever(s), hematuria, nausea or vomiting Review of Systems Const: Denies: fever(s), chills or fatigue Eyes: Denies: change in vision or eye discomfort ENMT: Denies: throat pain, odynophagia, nasal discharge or nasal congestion Card: Denies: chest pain, palpitations, edema, swelling of feet/ankles, dyspnea on exertion or orthopnea Resp: Denies: dyspnea, productive cough or non-productive cough GI: Denies: abdominal pain, nausea, vomiting, diarrhea, constipation or hematochezia : Denies: flank pain, difficulty urinating, dysuria or hematuria Musc: Reports: back pain (Chronic lower back pain); Denies: neck pain or extremity swelling Skin/Breast: Denies: rash or new lesions Neuro: Denies: headache(s), numbness in extremities or weakness in extremities [facility] ED PFSH: Medical History Alcohol dependence, in remission Bipolar disorder, current episode mixed, severe, with psychotic features Nicotine dependence, cigarettes, uncomplicated Other stimulant dependence, in remission Social History Smoking and tobacco status: current every day smoker cigarettes Packs smoked per day: 1 Smoking risk assessment/counseling performed?: Yes Tobacco counseling given: counseling >3 minutes Physical Exam Const: COMMON NORMALS: no acute distress, patient oriented x3 and alert GENERAL APPEARANCE: cooperative and comfortable HENMT: COMMON NORMALS: normocephalic HEAD & SCALP: normocephalic MOUTH: Normal oral and palatal mucosa present THROAT: posterior oropharynx normal and uvula midline Eye: COMMON NORMALS: Equal, round and reactive pupils present PUPIL: Yes Equal, round and reactive pupils present Neck/C-Spine: COMMON NORMALS: supple GENERAL: Yes normal visual inspection Resp: COMMON NORMALS: normal respiratory effort, No retractions, No use of accessory muscles and clear to auscultation bilaterally AUSCULTATION: clear to auscultation bilaterally Cardio: COMMON NORMALS: regular rate, regular rhythm, S1 normal heart sound present, S2 normal heart sound present, No gallops present (Cardio), No clicks present (Cardio), No murmurs present (Cardio) and Peripheral pulses 2+ throughout RATE: regular rate RHYTHM: regular rhythm HEART SOUNDS: S1 normal heart sound present and S2 normal heart sound present PERIPHERAL PULSES: Peripheral pulses 2+ throughout GI: COMMON NORMALS: Normal to inspection, nondistended, normoactive bowel sounds present, Soft to palpation, non-tender and no masses PALPATION: Yes Soft to palpation : COMMON NORMALS: Yes no CVA tenderness BLADDER/KIDNEY EXAM: Yes no CVA tenderness Back/Pelvis: COMMON NORMALS: no CVA tenderness LUMBAR SPINE/LOWER BACK: Yes paraspinal muscle tenderness Lumbar paraspinal muscle tenderness: left left lumbar paraspinal muscle tenderness: L4 and L5 Extremity: COMMON NORMALS: normal to inspection and no pedal edema Neuro: COMMON NORMALS: patient oriented x3 and moves all extremities SENSORIUM/ORIENTATION: Yes alert Skin: COMMON NORMALS: no rashes or lesions noted GENERAL SKIN EXAM: no rashes or lesions noted and dry skin Course Vital Signs: Vital signs: Vital Signs Temperature 96.2 F L 05/05/20 16:07 Pulse Rate 87 05/05/20 16:07 Respiratory Rate 18 05/05/20 18:14 Blood Pressure 110/73 05/05/20 16:07 Pulse Oximetry 97 05/05/20 16:07 MDM - Back Pain/Injury MDM Narrative: Medical decision making narrative: Patient is a 45-year-old male who comes to the ED with chronic lower back pain. Patient sees pain management on . Patient was given a dose of Toradol and Norflex while here in the ED and discharged. Patient told to follow-up with pain management for further evaluation and management of chronic lower back pain. Patient understood and agreed with plan. Discharge Plan Discharge Patient Disposition: Home, Self-Care Clinical Impression: Chronic lumbar pain Qualifiers: Back pain laterality: left Sciatica presence: without sciatica Qualified Code(s): M54.5 - Low back pain Condition: Stable Prescriptions: No Action Zoloft 50 mg tablet 50 mg PO DAILY 30 Days Qty: 30 RF: 1 olanzapine 10 mg tablet 15 mg PO BEDTIME 30 Days Qty: 45 RF: 1 hydroxyzine HCl 50 mg tablet 50 mg PO BID PRN (Reason: anxiety) Qty: 60 RF: 1 Robaxin-750 750 mg tablet 750 mg PO Q8H Qty: 20 RF: 0 ciprofloxacin HCl 500 mg tablet 500 mg PO BID Qty: 20 RF: 0 Tylenol-Codeine #3 300-30 mg tablet 1 tab PO Q4H PRN (Reason: pain) Qty: 10 RF: 0 Discharge Orders: Discharge Order (Routine); Ordered 05/05/20 Ordered By: Daniel Woodard Referrals: Ceasar Garcia MD [Primary Care Provider] - Discharge Diet: Regular Discharge Activity: Increase activity as tolerated Patient Instructions: Chronic Back Pain (ED) Activity Restrictions/Additional Instructions: Follow-up with medical provider as directed. Go to pain management appointment this week for evaluation and to discuss pain management meds. Continue all home meds as previously prescribed. Return to the ER or your medical provider if condition worsens. Please read and understand discharge instructions. If any questions, please ask. Discharge Date/Time: 05/05/20 18:14 Coding Level of Care Code ED Airplane Pilot Helper for Justin Fwd Exam Comprehensive
[2020-05-05] MEDS: orphenadrine 30 mg/mL Inj 2 mL 60 MG IM (18:05)
[2020-05-05] MEDS: ketorolac 60 mg/2 mL INJ IM (18:05)
[2020-05-05 18:14] VITALS: RESP 18
== END 2020-05-05 18:14 | disposition home or self-care (01) ==
PROVIDERS: Emergency Provider Physician Assistant; PCP Family Medicine
DX: G89.29 Other chronic pain (principal); M54.5 Low back pain; F17.210 Nicotine dependence, cigarettes, uncomplicated
CPT/HCPCS: 12345; 96372; 99281; 99283; J1885; J2360

== ENCOUNTER → 2020-05-09 08:01 | Outpatient (BNVA) | payer MEDICAID, SELFPAY | PROVIDERS: PCP Family Medicine; Visit Provider Nurse Practitioner | DX: F31.64 Bipolar disorder, current episode mixed, severe, with psychotic features (principal); F15.21 Other stimulant dependence, in remission; F10.20 Alcohol dependence, uncomplicated; F17.210 Nicotine dependence, cigarettes, uncomplicated | CPT/HCPCS: 99214 ==

== ENCOUNTER 2020-06-25 21:52 | Emergency (ER) | payer MEDICAID, SELFPAY ==
[2020-06-25 22:06] VITALS: BP 112/68; PULSE 73; RESP 16; TEMP 36.3; O2SAT 97
--- NOTE | 2020-06-25 23:05 | W.ED.BACK ---
HPI - Back Pain/Injury General: Chief Complaint: Back Pain/Injury Stated Complaint: back pain Time Seen by Provider: 06/25/20 23:08 History of Present Illness: HPI Narrative: 45-year-old male patient presents to the emergency department with complaints of low back pain. He reports drinking alcohol today, chronic alcoholic per patient history and statement. He reports not able to walk straight, reports sick of hurting every day. He denies suicidal/homicidal ideation plans or thoughts. Bipolar disorder and schizophrenia with psychosis as history. Reports not taking medication. He states is tired of hurting. Reports had spinal block completed approximately 2 weeks ago in [place]. MD elicited complaint: back pain (Chronic) Pertinent past history: prior back pain (Chronic, reports pain is not changed) Onset (ago): year(s) Timing: constant Severity: moderate Quality: dull Location: lumbar spine Radiation: none Exacerbating factors: walking Relieving factors: other (Sitting still) Associated symptoms: Reports difficulty walking; Deny abdominal pain, chills, dysuria, fever(s), nausea or vomiting Treatments prior to arrival: other (None) Review of Systems General: Reports: 10 or more systems reviewed and unremarkable except in HPI and below Const: Denies: fever(s), chills or diaphoresis Eyes: Denies: blurry vision or eye redness ENMT: Denies: throat pain, dental pain or disequilibrium Card: Denies: chest pain, palpitations or irregular heart rhythm Resp: Denies: dyspnea, productive cough, non-productive cough or wheezing GI: Denies: abdominal pain, nausea or vomiting : Denies: dysuria Musc: Reports: back pain Skin/Breast: Denies: rash or pruritus Neuro: Reports: difficulty walking Psych: Reports: mood swings and irritability; Denies: depression, visual hallucinations or auditory hallucinations Stanton/Lymph: Denies: easy bruising PFSH ED PFSH: Medical History (Updated 06/25/20 @ 23:26 by ANTONINA Gasca) Alcohol dependence, in remission Alcohol dependence, uncomplicated Bipolar disorder, current episode mixed, severe, with psychotic features Nicotine dependence, cigarettes, uncomplicated Other stimulant dependence, in remission Social History Smoking and tobacco status: current every day smoker cigarettes Packs smoked per day: 1 Smoking risk assessment/counseling performed?: Yes Tobacco counseling given: counseling >3 minutes Physical Exam Const: COMMON NORMALS: no acute distress, patient oriented x3 and alert GENERAL APPEARANCE: comfortable (While laying on the bed) and well hydrated NUTRITIONAL APPEARANCE: thin ORIENTATION/CONSCIOUSNESS: Yes awake, Yes oriented to person and Yes oriented to place HENMT: COMMON NORMALS: normocephalic, atraumatic, Normal external nose present and moist oral mucous membranes HEAD & SCALP: normocephalic and atraumatic NOSE: Normal external nose present Eye: COMMON NORMALS: Equal, round and reactive pupils present and EOMs intact bilaterally GENERAL EYE: appearance normal, both eyes and all related structures PUPIL: Yes Equal, round and reactive pupils present Neck/C-Spine: COMMON NORMALS: full ROM and no lymphadenopathy GENERAL: Yes normal visual inspection and Yes trachea midline CERVICAL SPINE: Yes cervical ROM normal Lymph: LYMPHATIC: no lymphadenopathy noted Chest: COMMONS NORMALS: normal inspection of the chest Resp: COMMON NORMALS: normal respiratory effort and clear to auscultation bilaterally AUSCULTATION: clear to auscultation bilaterally Cardio: COMMON NORMALS: regular rhythm, S1 normal heart sound present, S2 normal heart sound present and Peripheral pulses 2+ throughout RHYTHM: regular rhythm HEART SOUNDS: S1 normal heart sound present and S2 normal heart sound present PERIPHERAL PULSES: Peripheral pulses 2+ throughout GI: OTHER: Patient refused abdominal exam : OTHER: Refused abdominal exam Back/Pelvis: COMMON NORMALS: thoracic and lumbar spine normal to inspection THORACIC SPINE/UPPER BACK: Yes thoracic ROM normal LUMBAR SPINE/LOWER BACK: Yes lumbar ROM normal, Yes pain with ROM and Yes paraspinal muscle tenderness Lumbar paraspinal muscle tenderness: left SACROILIAC JOINTS: Yes SI joint(s) abnormal SI joint details: tender to palpation (Left) OTHER: Muscle strength 5/5 BLE, patient attempted to kick staff Extremity: COMMON NORMALS: normal to inspection and capillary refill normal Neuro: COMMON NORMALS: patient oriented x3 and no focal motor deficits SENSORIUM/ORIENTATION: Yes alert, Yes oriented to person and Yes oriented to place SPEECH: abnormal speech Details: slurred GAIT: Yes Ataxic gait present and Yes Staggering gait present MOTOR EXAM: 5/5 motor strength present throughout (during exam while lying flat) Psych: COMMON NORMALS: mental status grossly normal, Normal thought process present and cooperative ACTIVITY/MOTOR BEHAVIOR: Yes appropriate eye contact THOUGHT PROCESS: Normal thought process present Skin: COMMON NORMALS: no rashes or lesions noted and turgor normal GENERAL SKIN EXAM: no rashes or lesions noted and turgor normal Course ED course: 45-year-old male patient presents to the emergency department with complaints of chronic low back pain. He reports, tired of hurting everything I want the pain gone , I discussed with patient not able to eradicate pain as the pain is chronic in nature. Injections were offered, blood work and CAT scan along with IV was offered for further work-up, he refused, agreed to IM Toradol injection, he was noncompliant with staff during his stay, noncompliant with my exam, again, he denied suicidal or homicidal ideation plans or thoughts, denied auditory or visual hallucinations. I discussed with patient at length need to return to the emergency department for worsening/ concerning symptoms such as urinary or bowel incontinence. Attempted to educate patient on EtOH use. Vital Signs: Vital signs: Vital Signs Temperature 97.3 F L 06/25/20 22:06 Pulse Rate 78 06/25/20 23:43 Respiratory Rate 18 06/25/20 23:43 Blood Pressure 112/68 06/25/20 22:06 Pulse Oximetry 99 06/25/20 23:43 MDM - Back Pain/Injury Differential Diagnosis: Differential diagnosis back pain/injury: Likely lumbar radiculopathy, sciatica and renal colic Lab Data: Labs: Lab Results 06/25/20 Range/Units 23:20 Urine Color Straw (Yellow) Urine Appearance Clear (CLEAR) Urine pH 5 (5-7) Ur Specific Gravit y 1.010 (1.005-1.030) Urine Protein Neg (Negative) Urine Glucose (UA) Norm (Normal) Urine Ketones Negative (Negative) Urine Blood Neg (Negative) Urine Nitrate Negative (Negative) Urine Bilirubin Neg (Negative) Urine Urobilinogen Norm (Negative) mg/dL Ur Leukocyte Nicolasa ase Negative (Negative) Discharge Plan Discharge Patient Disposition: Home Clinical Impression: Back pain with left-sided sciatica, Alcohol abuse Chronic back pain Qualifiers: Back pain location: low back pain Back pain laterality: left Sciatica presence: with sciatica Sciatica laterality: sciatica of left side Qualified Code(s): M54.42 - Lumbago with sciatica, left side Condition: Stable Prescriptions: No Action hydroxyzine HCl 50 mg tablet 50 mg PO BID PRN (Reason: anxiety) Qty: 60 RF: 1 Zoloft 50 mg tablet 50 mg PO DAILY 30 Days Qty: 30 RF: 1 olanzapine 10 mg tablet 15 mg PO BEDTIME 30 Days Qty: 45 RF: 1 Robaxin-750 750 mg tablet 750 mg PO Q8H Qty: 20 RF: 0 ciprofloxacin HCl 500 mg tablet 500 mg PO BID Qty: 20 RF: 0 Tylenol-Codeine #3 300-30 mg tablet 1 tab PO Q4H PRN (Reason: pain) Qty: 10 RF: 0 Discharge Orders: Discharge Order (Routine); Ordered 06/25/20 Ordered By: Ana Maria Parmar Referrals: Ceasar Garcia MD [Primary Care Provider] - Discharge Diet: Usual diet Discharge Activity: Increase activity as tolerated Patient Instructions: Abuse of Alcohol (ED), Chronic Back Pain (ED), Back Pain (ED) Activity Restrictions/Additional Instructions: Follow-up with your doctor this week for back pain If you develop bladder or urinary incontinence return to the emergency department immediately Discharge Date/Time: 06/25/20 23:46 Coding Level of Care Code ED Customer Support Manager for Chg Fwd Exam Comprehensive
[2020-06-25] MEDS: ketorolac 60 mg/2 mL INJ IM (23:41)
[2020-06-25 23:43] VITALS: PULSE 78; RESP 18; O2SAT 99
[2020-06-25 23:48] LABS: Add Urine Microscopic? NO
[2020-06-25 23:51] LABS: Bilirubin Urine Neg (Negative); Blood Urine Neg (Negative); Glucose Urine UA Norm (Normal); Ketones Urine Negative (Negative); Leukocyte Esterase Urine Negative (Negative); Nitrate Urine Negative (Negative); Protein Urine Neg (Negative); Urine Appearance Clear (CLEAR); Urine Color Straw (Yellow); Urobilinogen Urine Norm (Negative); pH Urine 5 (5-7)
[2020-06-25 23:59] LABS: Amphetamines Screen Urine Negative (Negative); Barbiturates Screen Urine Negative (Negative); Benzodiazepines Screen Urine Negative (Negative); Cocaine Screen Urine Negative (Negative); Opiate Screen Urine Positive (Negative); PCP Screen Urine Negative (Negative); THC Screen Urine Negative (Negative)
--- NOTE | 2020-06-26 00:04 | PC.NURSE ---
PT CURSING AT STAFF, YELLING FROM ROOM, FUCK YOU GUYS . PT OFFERED IV FOR FLUIDS AND MEDS, REFUSED, STATES, I DON'T WANT NO FUCKING NEEDLE. PT ASKS FOR TV TO BE TURNED ON, THEN TURNS IT OFF AND CALLS FOR NURSE TO TURN IT BACK ON. UPON LEAVING ROOM, PT TURNS TV OFF AGAIN. CONT TO CURSE AT STAFF. THIS NURSE ASKED FOR ASSISTANCE FROM [facility] IN DEALING WITH PT R/T NOT FEELING SAFE.
== END 2020-06-26 00:08 | disposition home or self-care (01) ==
PROVIDERS: Emergency Provider Nurse Practitioner Family; PCP Family Medicine
DX: M54.42 Lumbago with sciatica, left side (principal); G89.29 Other chronic pain; F10.10 Alcohol abuse, uncomplicated; F17.210 Nicotine dependence, cigarettes, uncomplicated
CPT/HCPCS: 12345; 80306; 81003; 96372; 99282; 99283; J1885

== ENCOUNTER 2020-06-25 23:55 | Emergency (ER) | payer MEDICAID, SELFPAY ==
--- NOTE | 2020-06-26 00:09 | PC.NURSE ---
patient was discharged for the same thing 20 minutes prior to the writing of this note, patient is uncooperative aggressive towards staff, unable to perform assessment because patient will not stop cursing at staff, security notified
--- NOTE | 2020-06-26 00:13 | W.ED.BACK ---
HPI - Back Pain/Injury General: Chief Complaint: Back Pain/Injury Stated Complaint: back pain Time Seen by Provider: 06/26/20 00:09 Source: patient Mode of arrival: ambulatory Limitations: no limitations History of Present Illness: HPI Narrative: 45-year-old male who states he has been having back pain for years and it worsened tonight. He also has a history of chronic alcohol abuse. Patient denies any bowel or bladder incontinence. He denies any fever. He states that he did run out of his Zyprexa needs a Zyprexa tonight. He denies any suicidal homicidal ideations. Denies any fevers. Associated symptoms: Deny abdominal pain, chills, dysuria, fever(s), nausea or vomiting Review of Systems Const: Denies: fever(s), chills, body aches or change in appetite Eyes: Denies: blurry vision or eye discomfort ENMT: Denies: throat pain or dental pain Card: Denies: chest pain Resp: Denies: dyspnea GI: Denies: abdominal pain, nausea, vomiting or diarrhea : Denies: dysuria Musc: Reports: back pain Skin/Breast: Denies: rash Neuro: Denies: headache(s) Psych: Denies: depression Stanton/Lymph: Denies: easy bruising All/Imm: Denies: urticaria PFSH ED PFSH: Medical History Alcohol dependence, in remission Alcohol dependence, uncomplicated Bipolar disorder, current episode mixed, severe, with psychotic features Nicotine dependence, cigarettes, uncomplicated Other stimulant dependence, in remission Social History Smoking and tobacco status: current every day smoker cigarettes Packs smoked per day: 1 Smoking risk assessment/counseling performed?: Yes Tobacco counseling given: counseling >3 minutes Physical Exam Const: COMMON NORMALS: patient oriented x3 and healthy appearing GENERAL APPEARANCE: disheveled HENMT: COMMON NORMALS: normocephalic and atraumatic HEAD & SCALP: normocephalic and atraumatic Eye: COMMON NORMALS: Equal, round and reactive pupils present and EOMs intact bilaterally PUPIL: Yes Equal, round and reactive pupils present Neck/C-Spine: COMMON NORMALS: full ROM and supple Chest: COMMONS NORMALS: normal inspection of the chest and normal palpation of entire chest wall Resp: COMMON NORMALS: normal respiratory effort, No retractions, No use of accessory muscles and clear to auscultation bilaterally AUSCULTATION: clear to auscultation bilaterally Cardio: COMMON NORMALS: regular rate, regular rhythm and No murmurs present (Cardio) RATE: regular rate RHYTHM: regular rhythm GI: COMMON NORMALS: Normal to inspection, nondistended, normoactive bowel sounds present, Soft to palpation, non-tender and no masses PALPATION: Yes Soft to palpation Back/Pelvis: OTHER: Bilateral tenderness with no midline tenderness. Patient is able to ambulate without any difficulty Extremity: COMMON NORMALS: normal to inspection and full ROM Neuro: COMMON NORMALS: patient oriented x3, moves all extremities and no focal motor deficits Psych: COMMON NORMALS: mental status grossly normal, Normal thought process present and cooperative THOUGHT PROCESS: Normal thought process present Skin: COMMON NORMALS: no rashes or lesions noted and no wounds GENERAL SKIN EXAM: no rashes or lesions noted Course Vital Signs: Vital signs: Vital Signs Pulse Rate 87 06/26/20 00:51 Respiratory Rate 16 06/26/20 00:51 Blood Pressure 142/76 06/26/20 00:51 Pulse Oximetry 99 06/26/20 00:51 MDM - Back Pain/Injury MDM Narrative: Medical decision making narrative: Patient presents here with low back pain is chronic in nature. Patient also has alcohol constipation. Patient is well-appearing here and has no signs of cord compression. Patient is stable for discharge and return if worsening. Patient understands agrees plan. Discharge Plan Discharge Patient Disposition: Home Clinical Impression: Alcohol abuse Chronic back pain Qualifiers: Back pain location: low back pain Back pain laterality: unspecified Sciatica presence: without sciatica Qualified Code(s): M54.5 - Low back pain Condition: Stable Prescriptions: No Action hydroxyzine HCl 50 mg tablet 50 mg PO BID PRN (Reason: anxiety) Qty: 60 RF: 1 Zoloft 50 mg tablet 50 mg PO DAILY 30 Days Qty: 30 RF: 1 olanzapine 10 mg tablet 15 mg PO BEDTIME 30 Days Qty: 45 RF: 1 Robaxin-750 750 mg tablet 750 mg PO Q8H Qty: 20 RF: 0 ciprofloxacin HCl 500 mg tablet 500 mg PO BID Qty: 20 RF: 0 Tylenol-Codeine #3 300-30 mg tablet 1 tab PO Q4H PRN (Reason: pain) Qty: 10 RF: 0 Discharge Orders: Discharge Order (Routine); Ordered 06/26/20 Ordered By: Romario Ahmadi Referrals: Ceasar Garcia MD [Primary Care Provider] - 1-3 days Discharge Diet: Advance as tolerated Discharge Activity: Resume usual activity Patient Instructions: Abuse of Alcohol (ED), Back Pain (ED) Discharge Date/Time: 06/26/20 00:52 Coding Level of Care Code ED Shuttle Preparation Supervisor for Chg Fwd Exam Comprehensive
[2020-06-26 00:49] VITALS: BP 143/78; PULSE 76; RESP 16; O2SAT 98
[2020-06-26 00:51] VITALS: BP 142/76; PULSE 87; RESP 16; O2SAT 99
== END 2020-06-26 00:52 | disposition home or self-care (01) ==
LOC: ER 06-26 00:14
PROVIDERS: Emergency Provider Emergency Medicine; PCP Family Medicine
DX: M54.5 Low back pain (principal); F17.210 Nicotine dependence, cigarettes, uncomplicated
CPT/HCPCS: 12345; 99281

== ENCOUNTER 2020-07-01 22:08 | Emergency (ER) | payer MEDICAID, SELFPAY ==
[2020-07-01 22:17] VITALS: BP 136/78; PULSE 81; RESP 18; TEMP 36.8; O2SAT 98; BMI 24.5
--- NOTE | 2020-07-01 22:26 | W.ED.GENADLT ---
HPI - General Adult General: Chief complaint: General Medical Stated complaint: back pain Time Seen by Provider: 07/01/20 22:24 History of Present Illness: HPI narrative: Patient is a 45-year-old male who comes to the ED with chronic lower back pain. He has been seen here multiple times before with same complaint. He sees pain management clinic in [place] and has been prescribed Tylenol/codeine No. 3 tabs. Patient says his pain is radiating down his left leg. Denies any bladder, bowel incontinence, pelvic anesthesia or weakness/numbness to lower extremities. Patient has history of alcohol abuse. Associated symptoms: Deny chest pain, dyspnea, headache(s), nausea, rash, palpitations or vomiting Review of Systems Const: Denies: fever(s), chills or fatigue Eyes: Denies: change in vision or eye discomfort ENMT: Denies: throat pain, odynophagia, nasal discharge or nasal congestion Card: Denies: chest pain, palpitations, edema, swelling of feet/ankles, dyspnea on exertion or orthopnea Resp: Denies: dyspnea, productive cough or non-productive cough GI: Denies: abdominal pain, nausea, vomiting, diarrhea, constipation or hematochezia : Denies: flank pain, difficulty urinating, dysuria or hematuria Musc: Reports: back pain (Chronic lower back pain with pain radiating down left lower extremity.); Denies: neck pain or extremity swelling Skin/Breast: Denies: rash or new lesions Neuro: Denies: headache(s), numbness in extremities or weakness in extremities [facility] ED PFSH: Medical History Alcohol dependence, in remission Alcohol dependence, uncomplicated Bipolar disorder, current episode mixed, severe, with psychotic features Nicotine dependence, cigarettes, uncomplicated Other stimulant dependence, in remission Social History Smoking and tobacco status: current every day smoker cigarettes Packs smoked per day: 1 Smoking risk assessment/counseling performed?: Yes Tobacco counseling given: counseling >3 minutes Physical Exam Const: COMMON NORMALS: no acute distress, patient oriented x3 and alert GENERAL APPEARANCE: cooperative and comfortable HENMT: COMMON NORMALS: normocephalic HEAD & SCALP: normocephalic MOUTH: Normal oral and palatal mucosa present THROAT: posterior oropharynx normal and uvula midline Neck/C-Spine: COMMON NORMALS: supple GENERAL: Yes normal visual inspection Resp: COMMON NORMALS: normal respiratory effort, No retractions, No use of accessory muscles and clear to auscultation bilaterally AUSCULTATION: clear to auscultation bilaterally Cardio: COMMON NORMALS: regular rate, regular rhythm, S1 normal heart sound present, S2 normal heart sound present, No gallops present (Cardio), No clicks present (Cardio), No murmurs present (Cardio) and Peripheral pulses 2+ throughout RATE: regular rate RHYTHM: regular rhythm HEART SOUNDS: S1 normal heart sound present and S2 normal heart sound present PERIPHERAL PULSES: Peripheral pulses 2+ throughout GI: COMMON NORMALS: Normal to inspection, nondistended, normoactive bowel sounds present, Soft to palpation, non-tender and no masses PALPATION: Yes Soft to palpation : COMMON NORMALS: Yes no CVA tenderness BLADDER/KIDNEY EXAM: Yes no CVA tenderness Back/Pelvis: COMMON NORMALS: no CVA tenderness LUMBAR SPINE/LOWER BACK: Yes paraspinal muscle tenderness Lumbar paraspinal muscle tenderness: left and Yes straight leg raise positive left Extremity: COMMON NORMALS: normal to inspection and no pedal edema Neuro: COMMON NORMALS: patient oriented x3 and moves all extremities SENSORIUM/ORIENTATION: Yes alert Skin: COMMON NORMALS: no rashes or lesions noted GENERAL SKIN EXAM: no rashes or lesions noted and dry skin Course Vital Signs: Vital signs: Vital Signs Temperature 98.2 F 07/01/20 23:00 Pulse Rate 80 07/01/20 23:00 Respiratory Rate 15 07/01/20 23:00 Blood Pressure 101/81 07/01/20 23:00 Pulse Oximetry 97 07/01/20 23:00 MDM - General Adult MDM Narrative: Medical decision making narrative: Patient is a 45-year-old male who comes to the ED with chronic back pain. He reports pain radiating down into the left leg. Patient has been seen here for same complaint multiple times in the past couple months. He currently sees pain management clinic in [place]. Denies any pelvic anesthesia, bladder or bowel incontinence or weakness or numbness to lower extremity. Patient was given a dose of Toradol and prednisone while here in the ED. He was diagnosed with chronic back pain with sciatic pain down the left leg. He was discharged with a prescription for prednisone and Robaxin. He was told to follow-up with his PCP in 7 to 10 days for reevaluation. Take previously prescribed pain medications or [id number] ibuprofen or Tylenol for pain. Return to ED precautions given. Patient understood and agreed with plan. Discharge Plan Discharge Patient Disposition: Home Clinical Impression: Alcohol abuse Chronic back pain Qualifiers: Back pain location: low back pain Back pain laterality: left Sciatica presence: with sciatica Sciatica laterality: sciatica of left side Qualified Code(s): M54.42 - Lumbago with sciatica, left side Condition: Stable Prescriptions: New Robaxin-750 750 mg tablet 750 mg PO Q8H Qty: 30 RF: 0 prednisone 20 mg tablet 20 mg PO TID 5 Days Qty: 15 RF: 0 No Action hydroxyzine HCl 50 mg tablet 50 mg PO BID PRN (Reason: anxiety) Qty: 60 RF: 1 Zoloft 50 mg tablet 50 mg PO DAILY 30 Days Qty: 30 RF: 1 olanzapine 10 mg tablet 15 mg PO BEDTIME 30 Days Qty: 45 RF: 1 methocarbamol [Robaxin-750] 750 mg tablet 750 mg PO Q8H Qty: 20 RF: 0 acetaminophen-codeine [Tylenol-Codeine #3] 300-30 mg tablet 1 tab PO Q4H PRN (Reason: pain) Qty: 10 RF: 0 Discharge Orders: Discharge Order (Routine); Ordered 07/01/20 Ordered By: Daniel Woodard Referrals: Ceasar Garcia MD [Primary Care Provider] - Discharge Diet: Regular Discharge Activity: Increase activity as tolerated Patient Instructions: Lumbar Radiculopathy (ED), Chronic Back Pain (ED) Activity Restrictions/Additional Instructions: Follow-up with medical provider as directed in 7-10 days. Take medications as prescribed. Take the muscle relaxer Robaxin at night before bed, because it can cause drowsiness. If you do use Robaxin during the day use with caution.. Return to the ER or your medical provider if condition worsens. Please read and understand discharge instructions. If any questions, please ask. Discharge Date/Time: 07/01/20 23:00 Coding Level of Care Code ED Train Operations Manager for Justin Fwd Exam Comprehensive
[2020-07-01 22:27] VITALS: PULSE 85; RESP 16; O2SAT 98
[2020-07-01] MEDS: ketorolac 60 mg/2 mL INJ IM (22:43)
[2020-07-01] MEDS: predniSONE 20 mg Tablet 60 MG PO (22:43)
[2020-07-01 23:00] VITALS: BP 101/81; PULSE 80; RESP 15; TEMP 36.8; O2SAT 97
== END 2020-07-01 23:00 | disposition home or self-care (01) ==
PROVIDERS: Emergency Provider Physician Assistant; PCP Family Medicine
DX: M54.42 Lumbago with sciatica, left side (principal); F10.10 Alcohol abuse, uncomplicated; F17.210 Nicotine dependence, cigarettes, uncomplicated
CPT/HCPCS: 12345; 96372; 99281; 99283; J1885; J7512

== ENCOUNTER → 2020-07-11 07:38 | Outpatient (BNVA) | payer MEDICAID, SELFPAY | PROVIDERS: PCP Family Medicine; Visit Provider Nurse Practitioner | DX: F10.20 Alcohol dependence, uncomplicated (principal); F15.21 Other stimulant dependence, in remission; F31.64 Bipolar disorder, current episode mixed, severe, with psychotic features; F17.210 Nicotine dependence, cigarettes, uncomplicated | CPT/HCPCS: 99214 ==

== ENCOUNTER → 2020-08-07 08:26 | Outpatient (BNVA) | payer MEDICAID, SELFPAY | PROVIDERS: PCP Family Medicine; Visit Provider Nurse Practitioner | DX: F31.64 Bipolar disorder, current episode mixed, severe, with psychotic features (principal); F10.20 Alcohol dependence, uncomplicated; F15.21 Other stimulant dependence, in remission; F17.210 Nicotine dependence, cigarettes, uncomplicated | CPT/HCPCS: 99214 ==

== ENCOUNTER 2020-08-10 16:57 | Emergency (ER) | payer MEDICAID, SELFPAY ==
[2020-08-10 17:06] VITALS: PULSE 78; RESP 15; TEMP 36.6; O2SAT 98; BMI 24.5
[2020-08-10 17:11] VITALS: BP 113/80
--- NOTE | 2020-08-10 17:22 | ED_ITS ---
HPI - Back Pain/Injury General: Chief Complaint: Back Pain/Injury Stated Complaint: lwr back pain Time Seen by Provider: 08/10/20 17:20 Source: patient Mode of arrival: ambulatory Limitations: no limitations History of Present Illness: HPI Narrative: 45-year-old male who has a history of chronic back pain states he was helping a friend move appliances 2 days ago on having worsening back pain. He states his lower lumbar region much worse with movement. He denies any bowel or bladder incontinence. Denies any fever. Denies any radiation down his leg. Associated symptoms: Deny abdominal pain, chills, dysuria, fever(s), nausea or vomiting Review of Systems Const: Denies: fever(s), chills, body aches or change in appetite Eyes: Denies: blurry vision or eye discomfort ENMT: Denies: throat pain or dental pain Card: Denies: chest pain Resp: Denies: dyspnea GI: Denies: abdominal pain, nausea, vomiting or diarrhea : Denies: dysuria Musc: Reports: back pain; Denies: neck pain Skin/Breast: Denies: rash Neuro: Denies: headache(s) Psych: Denies: depression Stanton/Lymph: Denies: easy bruising All/Imm: Denies: urticaria PFSH ED PFSH: Medical History Alcohol dependence, in remission Alcohol dependence, uncomplicated Bipolar disorder, current episode mixed, severe, with psychotic features Nicotine dependence, cigarettes, uncomplicated Other stimulant dependence, in remission Social History Smoking and tobacco status: current every day smoker cigarettes Packs smoked per day: 1 Smoking risk assessment/counseling performed?: Yes Tobacco counseling given: counseling >3 minutes Physical Exam Const: COMMON NORMALS: no acute distress, patient oriented x3 and healthy appearing HENMT: COMMON NORMALS: normocephalic and atraumatic HEAD & SCALP: normocephalic and atraumatic Eye: COMMON NORMALS: Equal, round and reactive pupils present and EOMs intact bilaterally PUPIL: Yes Equal, round and reactive pupils present Neck/C-Spine: COMMON NORMALS: full ROM and supple Chest: COMMONS NORMALS: normal inspection of the chest and normal palpation of entire chest wall Resp: COMMON NORMALS: normal respiratory effort, No retractions, No use of accessory muscles and clear to auscultation bilaterally AUSCULTATION: clear to auscultation bilaterally Cardio: COMMON NORMALS: regular rate, regular rhythm and No murmurs present (Cardio) RATE: regular rate RHYTHM: regular rhythm GI: COMMON NORMALS: Normal to inspection, nondistended, normoactive bowel sounds present, Soft to palpation, non-tender and no masses PALPATION: Yes Soft to palpation Back/Pelvis: OTHER: Paraspinal tenderness with the worst being over the left lower lumbar. He has no midline tenderness. 5 out of 5 strength to both extremities. Extremity: COMMON NORMALS: normal to inspection and full ROM Neuro: COMMON NORMALS: patient oriented x3, moves all extremities and no focal motor deficits Psych: COMMON NORMALS: mental status grossly normal, Normal thought process present and cooperative THOUGHT PROCESS: Normal thought process present Skin: COMMON NORMALS: no rashes or lesions noted and no wounds GENERAL SKIN EXAM: no rashes or lesions noted Course Vital Signs: Vital signs: Vital Signs Temperature 97.8 F 08/10/20 17:06 Pulse Rate 78 08/10/20 17:06 Respiratory Rate 15 08/10/20 17:06 Blood Pressure 113/80 08/10/20 17:11 Pulse Oximetry 98 08/10/20 17:06 MDM - Back Pain/Injury MDM Narrative: Medical decision making narrative: Patient presents here with low back pain is likely a muscle strain. Patient has no signs of epidural abscess or cord compression. Patient given Toradol here and will prescribe him Naprosyn and Robaxin for home. He is stable for discharge and is to follow-up with his PCP in 3 to 5 days and return to the ER if worsening. He understands and agrees to plan. Discharge Plan Discharge Patient Disposition: Home Clinical Impression: Strain of lumbar region Qualifiers: Encounter type: initial encounter Qualified Code(s): S39.012A - Strain of muscle, fascia and tendon of lower back, initial encounter Condition: Stable Prescriptions: New Robaxin-750 750 mg tablet 750 mg PO Q6H Qty: 30 RF: 0 Naprosyn 500 mg tablet 500 mg PO BID PRN (Reason: pain) Qty: 20 RF: 0 No Action hydroxyzine HCl 50 mg tablet 50 mg PO BID PRN (Reason: anxiety) Qty: 60 RF: 1 trazodone 50 mg tablet 50 mg PO .HS Qty: 30 RF: 1 Zoloft 50 mg tablet 50 mg PO DAILY 30 Days Qty: 30 RF: 1 olanzapine 20 mg tablet 20 mg PO .HS Qty: 30 RF: 1 Robaxin-750 750 mg tablet 750 mg PO Q8H Qty: 30 RF: 0 methocarbamol [Robaxin-750] 750 mg tablet 750 mg PO Q8H Qty: 20 RF: 0 acetaminophen-codeine [Tylenol-Codeine #3] 300-30 mg tablet 1 tab PO Q4H PRN (Reason: pain) Qty: 10 RF: 0 Discharge Orders: Discharge Order (Routine); Ordered 08/10/20 Ordered By: Romario Ahmadi Referrals: Ceasar Garcia MD [Primary Care Provider] - 1-3 days Discharge Diet: Advance as tolerated Discharge Activity: Resume usual activity Patient Instructions: Low Back Strain (ED), Chronic Back Pain (ED) Coding Level of Care Code ED Clinical Education Coordinator for Chg Fwd Exam Comprehensive
[2020-08-10] MEDS: ketorolac 60 mg/2 mL INJ IM (17:40)
[2020-08-10] MEDS: dexamethasone 4 mg/mL INJ 10 MG IM (17:40)
== END 2020-08-10 17:38 | disposition home or self-care (01) ==
PROVIDERS: Emergency Provider Emergency Medicine; PCP Family Medicine
DX: S39.012A Strain of muscle, fascia and tendon of lower back, initial encounter (principal); F17.210 Nicotine dependence, cigarettes, uncomplicated; X50.0XXA Overexertion from strenuous movement or load, initial encounter
CPT/HCPCS: 12345; 96372; 99281; 99283; J1100; J1885

== ENCOUNTER 2020-08-23 16:52 | Emergency (ER) | payer MEDICAID, SELFPAY ==
[2020-08-23 16:54] VITALS: BP 80/41; PULSE 92; RESP 26; TEMP 37.3; O2SAT 97; BMI 25.7
[2020-08-23 17:09] VITALS: BP 150/72; PULSE 70; RESP 20; O2SAT 98
[2020-08-23 17:34] LABS: Basophils # 0.1 10^3/uL (0.0-0.1); Basophils % 0.5 %; Eosinophils # 0.1 10^3/uL (0.0-0.8); Eosinophils % 0.5 %; Hematocrit 37.7 % (42.0-52.0); Hemoglobin 12.6 g/dL (11.7-16.6); Lymphocytes # 2.9 10^3/uL (0.8-4.8); Lymphocytes % 16.9 %; Mean Corpuscular HGB Conc 33.4 g/dL (30.0-36.0); Mean Corpuscular Hemoglobin 33.2 pg (28.0-34.0); Mean Corpuscular Volume 99.5 fL (80-94); Monocytes # 2.2 10^3/uL (0.2-0.9); Monocytes % 13.1 %; Neutrophils # 11.78 10^3/uL (1.8-7.7); Neutrophils % 68.8 %; Nucleated Red Blood Cells % 0 %; Platelet Count 221 10^3/cmm (130-400); Red Blood Count 3.79 10^6/uL (4.1-5.3); Red Cell Distribution Width 12.5 % (12.1-15.1); White Blood Count 17.1 10^3/uL (4.0-10.0)
[2020-08-23] MEDS: LORazepam 2 mg/mL INJ 1 mL IVP (17:58)
[2020-08-23] MEDS: haloperidol inj 5 mg/mL INJ 1 mL IVP (17:58)
[2020-08-23] MEDS: sodium chloride 0.9% 1,000 ML 999 ML IV ×2 (17:59→22:15)
[2020-08-23 18:06] LABS: Acetaminophen < 5.0 ug/mL (10-30); Alanine Aminotransferase 64 U/L (0-41); Albumin Level 4.1 g/dL (3.5-5.2); Alcohol Level < 10 mg/dL (0-10); Alkaline Phosphatase 87 IU/L (40-130); Anion Gap 13.6 (5-19); Aspartate Amino Transferase 78 U/L (0-40); Blood Urea Nitrogen 29 mg/dL (6-20); Calcium 8.6 mg/dL (8.5-10.5); Carbon Dioxide 24 mmol/L (22-29); Chloride 103 mmol/L (98-107); Globulin 2.8 g/dL (1.3-4.6); Glucose 113 mg/dL (65-115); Osmolality Calculated 291 mOsm/kg (285-295); Potassium 3.6 mmol/L (3.5-5.1); Salicylate < 0.3 mg/dL (3-10); Sodium 137 mmol/L (136-145); Total Bilirubin 0.5 mg/dL (0.15-1.2); Total Protein 6.9 g/dL (6.6-8.7)
[2020-08-23 18:27] VITALS: BP 128/68; PULSE 61; RESP 20; O2SAT 98
--- NOTE | 2020-08-23 19:14 | W.ED.PSYCH ---
HPI - Psych General: Chief Complaint: Psychiatric Symptoms Stated Complaint: PSYCH EVAL Time Seen by Provider: 08/23/20 17:17 History of Present Illness: HPI Narrative: 45-year-old male with a history of polysubstance abuse. He presents to the emergency department after 911 was called. He was evidently on someone else's property acting erratically. EMS brings the patient in, agitated but cooperative. He denies suicidality. He admits to using methamphetamine as well as other substances. He denies alcohol consumption. He says his back hurts. complaint: altered mental status Onset (ago): hour(s) Duration: constant History of same: Yes Relieving factors: none Exacerbating factors: none Context: recent drug abuse Associated psychiatric symptoms: depression Review of Systems General: Reports: ROS unobtainable due to mental status (Patient poor historian) Card: Denies: chest pain Resp: Denies: dyspnea, productive cough or non-productive cough GI: Denies: vomiting PFS ED PFSH: Medical History (Updated 08/23/20 @ 19:26 by Alireza Adam DO) Alcohol dependence, in remission Alcohol dependence, uncomplicated Bipolar disorder, current episode mixed, severe, with psychotic features Nicotine dependence, cigarettes, uncomplicated Other stimulant dependence, in remission Social History Smoking and tobacco status: current every day smoker cigarettes Packs smoked per day: 1 Smoking risk assessment/counseling performed?: Yes Tobacco counseling given: counseling >3 minutes Physical Exam Const: GENERAL APPEARANCE: disheveled and other ORIENTATION/CONSCIOUSNESS: Yes oriented to person and Yes oriented to place; not oriented to time HENMT: COMMON NORMALS: normocephalic, external ears normal and Normal external nose present HEAD & SCALP: normocephalic FACE & SINUS: normal facial exam NOSE: Normal external nose present and No nasal discharge present EXTERNAL EAR: Yes external ears normal MOUTH: tongue normal Eye: COMMON NORMALS: Equal, round and reactive pupils present, EOMs intact bilaterally and conjunctivae normal EYELID: eyelids normal CONJUNCTIVA: Yes conjunctivae normal PUPIL: Yes Equal, round and reactive pupils present and Yes Dilated pupils Neck/C-Spine: COMMON NORMALS: full ROM GENERAL: No tracheal deviation CERVICAL SPINE: Yes normal cervical lordosis and No Cervical spine tenderness Chest: COMMONS NORMALS: normal inspection of the chest Resp: COMMON NORMALS: clear to auscultation bilaterally EFFORT & INSPECTION: No tachypneic, No respiratory distress, No retractions, No uses accessory muscles and No tracheal deviation AUSCULTATION: clear to auscultation bilaterally, no rhonchi, no wheezes and lung sounds not diminished Cardio: COMMON NORMALS: regular rhythm RATE: tachycardic RHYTHM: regular rhythm HEART SOUNDS: no murmurs PERIPHERAL PULSES: radial pulses present GI: INSPECTION: No abdominal distension PALPATION: No Guarding due to palpation present (GI) and No Rigid due to palpation PERCUSSION: no dullness to percussion and no tympanic to percussion Neuro: SENSORIUM/ORIENTATION: Yes oriented to person, Yes oriented to place and No oriented to time Psych: APPEARANCE: Yes disheveled ATTITUDE: Yes agitated ACTIVITY/MOTOR BEHAVIOR: Yes psychomotor agitation, Yes fidgeting and Yes restless SPEECH: Yes excessive MOOD & AFFECT: Yes irritable THOUGHT PROCESS: Circumstantial thought process present and Loose association thought process present THOUGHT CONTENT: No Suicidality present, No Homicidality present and No Hallucination(s) present ATTENTION/CONCENTRATION: Yes attention grossly impaired and Yes concentration grossly impaired MEMORY/COGNITION: Yes memory grossly intact and Yes cognition grossly impaired INSIGHT: Limited insight present (Psych) JUDGEMENT: Limited judgement present (Psych) MDM - Psych MDM Narrative: Medical decision making narrative: White blood cell count is 17. No clear left shift. He is mildly dry. He is gotten IV fluid for this. He was agitated, and very fidgety. Writhing around in the bed. For his own safety, he was given Haldol and Ativan to settle this down. He went to sleep several minutes after. He has been resting comfortably. Vital signs of been good. Blood pressure 120/61, oxygen saturations 96% on room air. This is a case of acute stimulant intoxication. He is not homicidal or suicidal. He is not an immediate danger to himself. He will be discharged when he wakes. Lab Data: Labs: Lab Results 08/23/20 08/23/20 Range/Units 17:25 17:25 WBC 17.1 H (4.0-10.0) 10^3/ uL RBC 3.79 L (4.1-5.3) 10^6/u L Hgb 12.6 (11.7-16.6) g/dL Hct 37.7 L (42.0-52.0) % MCV 99.5 H (80-94) fL MCH 33.2 (28.0-34.0) pg MCHC 33.4 (30.0-36.0) g/dL RDW 12.5 (12.1-15.1) % Plt Count 221 (130-400) 10^3/c mm MPV 10.0 (7.4-10.4) fL Neut % (Auto) 68.8 % Lymph % (Auto) 16.9 % [place] % (Auto) 13.1 % Eos % (Auto) 0.5 % Baso % (Auto) 0.5 % Neut # (Auto) 11.78 H (1.8-7.7) 10^3/u L Lymph # (Auto) 2.9 (0.8-4.8) 10^3/u L [place] # (Auto) 2.2 H (0.2-0.9) 10^3/u L Eos # (Auto) 0.1 (0.0-0.8) 10^3/u L Baso # (Auto) 0.1 (0.0-0.1) 10^3/u L Nucleated RBC % (a uto) 0 % Nucleated RBCs # 0.0 /100WBC Sodium 137 (136-145) mmol/L Potassium 3.6 (3.5-5.1) mmol/L Chloride 103 (98-107) mmol/L Carbon Dioxide 24 (22-29) mmol/L Anion Gap 13.6 (5-19) BUN 29 H (6-20) mg/dL Creatinine 0.6 L (0.7-1.2) mg/dL GFR Calculation 145.0 H (90-130) mL/min Glucose 113 (65-115) mg/dL Calculated Osmolal ity 291 (285-295) mOsm/k g Calcium 8.6 (8.5-10.5) mg/dL Total Bilirubin 0.5 (0.15-1.2) mg/dL AST 78 H (0-40) U/L ALT 64 H (0-41) U/L Alkaline Phosphata se 87 (40-130) IU/L Total Protein 6.9 (6.6-8.7) g/dL Albumin 4.1 (3.5-5.2) g/dL Globulin 2.8 (1.3-4.6) g/dL Salicylates < 0.3 L (3-10) mg/dL Acetaminophen < 5.0 L (10-30) ug/mL Ethyl Alcohol < 10 (0-10) mg/dL Discharge Plan Discharge Patient Disposition: Home Clinical Impression: Methamphetamine intoxication Condition: Stable Prescriptions: No Action hydroxyzine HCl 50 mg tablet 50 mg PO BID PRN (Reason: anxiety) Qty: 60 RF: 1 Zoloft 50 mg tablet 50 mg PO DAILY 30 Days Qty: 30 RF: 1 methocarbamol [Robaxin-750] 750 mg tablet 750 mg PO Q8H Qty: 30 RF: 0 acetaminophen-codeine [Tylenol-Codeine #3] 300-30 mg tablet 1 tab PO Q4H PRN (Reason: pain) Qty: 10 RF: 0 naproxen [Naprosyn] 500 mg tablet 500 mg PO BID PRN (Reason: pain) Qty: 20 RF: 0 olanzapine 20 mg tablet 20 mg PO BEDTIME RF: 0 trazodone 50 mg tablet 50 mg PO BEDTIME RF: 0 Discharge Orders: Discharge Order (Routine); Ordered 08/23/20 Ordered By: Alireza Adam Referrals: Ceasar Garcia MD [Primary Care Provider] - 4-7 days Discharge Diet: Advance as tolerated Discharge Activity: Increase activity as tolerated Patient Instructions: Methamphetamine Abuse (ED) Activity Restrictions/Additional Instructions: Rest. Return from mental status worsening, any thoughts or wishes to harm your self or others, significant hallucinations, other concerning symptoms. Abstain from illicit substances. Coding Level of Care Code ED Pasteurizer for Chg Fwd Exam Comprehensive
[2020-08-23 20:01] VITALS: BP 152/79; PULSE 71; O2SAT 98
--- NOTE | 2020-08-24 00:36 | PC.SOCIAL ---
Medicaid ride called, Trip #[id number]. Notified [employer] of trip.
== END 2020-08-23 20:01 | disposition home or self-care (01) ==
PROVIDERS: Emergency Provider Emergency Medicine; PCP Family Medicine
DX: F15.129 Other stimulant abuse with intoxication, unspecified (principal); F17.210 Nicotine dependence, cigarettes, uncomplicated
CPT/HCPCS: 12345; 80053; 80307; 85025; 96374; 96375; 99284; J1630; J2060; J7030

== ENCOUNTER 2020-08-28 17:51 | Emergency (ER) | payer MEDICAID, SELFPAY ==
[2020-08-28 18:49] VITALS: BP 131/84; PULSE 89; RESP 18; TEMP 36.8; O2SAT 96; BMI 23.7
--- NOTE | 2020-08-28 19:35 | W.ED.EXTPRO ---
HPI - Extremity Problem General: Chief complaint: Extremity Injury, Lower Stated complaint: Lower Back Pain Time Seen by Provider: 08/28/20 18:03 Source: patient Mode of arrival: ambulatory Limitations: no limitations History of Present Illness: HPI Narrative: 45-year-old male patient presents to the emergency department with complaints of back pain. He reports pains to the left lower back x 1 year, has not changed. Reports nothing [id number] works. Was recently seen on 08/10/2020 for similar symptoms. Denies fever chills, ambulatory without difficulty ambulating. Reports does not have medication. Onset (ago): week(s) (1 year) Pain Consistency: intermittent Location: left and lower extremity Severity scale (1-10): 4 Quality: aching and dull Radiation: distal Relieving factors: movement Exacerbating factors: rest Associated symptoms: Reports no associated symptoms; Deny chest pain, fever(s) or rash Review of Systems General: Reports: 10 or more systems reviewed and unremarkable except in HPI and below Const: Denies: fever(s), chills or diaphoresis Eyes: Denies: blurry vision or eye redness ENMT: Denies: throat pain, dental pain or disequilibrium Card: Denies: chest pain, palpitations or irregular heart rhythm Resp: Denies: dyspnea, productive cough, non-productive cough or wheezing GI: Denies: abdominal pain, nausea or vomiting : Denies: dysuria Musc: Reports: back pain and limited range of motion (LLE due to pain); Denies: neck pain Skin/Breast: Denies: rash or pruritus Neuro: Denies: headache(s), weakness in extremities or behavioral changes Psych: Reports: other (h/o substance abuse); Denies: anxiety or depression Stanton/Lymph: Denies: easy bruising PFS ED PFSH: Medical History (Updated 08/28/20 @ 19:39 by ANTONINA Gasca) Alcohol dependence, in remission Alcohol dependence, uncomplicated Bipolar disorder, current episode mixed, severe, with psychotic features Nicotine dependence, cigarettes, uncomplicated Other stimulant dependence, in remission Social History Smoking and tobacco status: current every day smoker cigarettes Packs smoked per day: 1 Smoking risk assessment/counseling performed?: Yes Tobacco counseling given: counseling >3 minutes Physical Exam Const: COMMON NORMALS: no acute distress, patient oriented x3 and alert GENERAL APPEARANCE: cooperative, comfortable and well hydrated NUTRITIONAL APPEARANCE: thin ORIENTATION/CONSCIOUSNESS: Yes awake, Yes oriented to person, Yes oriented to place and Yes oriented to time HENMT: COMMON NORMALS: normocephalic, Normal external nose present and moist oral mucous membranes HEAD & SCALP: normocephalic NOSE: Normal external nose present Eye: COMMON NORMALS: Equal, round and reactive pupils present and EOMs intact bilaterally GENERAL EYE: appearance normal, both eyes and all related structures PUPIL: Yes Equal, round and reactive pupils present Neck/C-Spine: COMMON NORMALS: full ROM and no lymphadenopathy GENERAL: Yes normal visual inspection and Yes trachea midline CERVICAL SPINE: Yes cervical ROM normal Lymph: LYMPHATIC: no lymphadenopathy noted Chest: COMMONS NORMALS: normal inspection of the chest Resp: COMMON NORMALS: normal respiratory effort and clear to auscultation bilaterally AUSCULTATION: clear to auscultation bilaterally Cardio: COMMON NORMALS: regular rhythm, S1 normal heart sound present and S2 normal heart sound present RHYTHM: regular rhythm HEART SOUNDS: S1 normal heart sound present and S2 normal heart sound present GI: COMMON NORMALS: Soft to palpation and non-tender INSPECTION: Yes normal to inspection PALPATION: Yes Soft to palpation : COMMON NORMALS: Yes no CVA tenderness BLADDER/KIDNEY EXAM: Yes no CVA tenderness and No CVA tenderness Back/Pelvis: COMMON NORMALS: no CVA tenderness and thoracic and lumbar spine normal to inspection GENERAL BACK: No CVA tenderness THORACIC SPINE/UPPER BACK: Yes normal to inspection and Yes thoracic ROM normal LUMBAR SPINE/LOWER BACK: Yes lumbar ROM normal, No lumbar spinal tenderness, Yes paraspinal muscle spasm Lumbar paraspinal muscle spasm: left and Yes straight leg raise positive left PELVIS: Yes buttocks normal SACROILIAC JOINTS: Yes SI joint(s) abnormal SI joint details: tender to palpation (left) SACRUM: no ecchymosis COCCYX: no swelling Extremity: COMMON NORMALS: normal to inspection and capillary refill normal Neuro: COMMON NORMALS: patient oriented x3 and no focal motor deficits SENSORIUM/ORIENTATION: Yes alert, Yes oriented to person, Yes oriented to place and Yes oriented to time GAIT: Yes Normal gait present MOTOR EXAM: 5/5 motor strength present throughout Psych: COMMON NORMALS: mental status grossly normal, Normal thought process present and cooperative ACTIVITY/MOTOR BEHAVIOR: Yes appropriate eye contact THOUGHT PROCESS: Normal thought process present Skin: COMMON NORMALS: no rashes or lesions noted and turgor normal GENERAL SKIN EXAM: no rashes or lesions noted and turgor normal Course Vital Signs: Vital signs: Vital Signs Temperature 98.3 F 08/28/20 18:49 Pulse Rate 89 08/28/20 18:49 Respiratory Rate 18 08/28/20 18:49 Blood Pressure 131/84 08/28/20 18:49 Pulse Oximetry 96 08/28/20 18:49 Discharge Plan Discharge Patient Disposition: Home Clinical Impression: Sciatic leg pain, Back pain with left-sided sciatica Condition: Stable Prescriptions: New methocarbamol 750 mg tablet 750 mg PO TID Qty: 20 RF: 0 Lidoderm 5 % adhesive patch,medicated 1 patch topical BID Qty: 30 RF: 0 No Action hydroxyzine HCl 50 mg tablet 50 mg PO BID PRN (Reason: anxiety) Qty: 60 RF: 1 Zoloft 50 mg tablet 50 mg PO DAILY 30 Days Qty: 30 RF: 1 methocarbamol [Robaxin-750] 750 mg tablet 750 mg PO Q8H Qty: 30 RF: 0 acetaminophen-codeine [Tylenol-Codeine #3] 300-30 mg tablet 1 tab PO Q4H PRN (Reason: pain) Qty: 10 RF: 0 naproxen [Naprosyn] 500 mg tablet 500 mg PO BID PRN (Reason: pain) Qty: 20 RF: 0 olanzapine 20 mg tablet 20 mg PO BEDTIME RF: 0 trazodone 50 mg tablet 50 mg PO BEDTIME RF: 0 Discharge Orders: Discharge Order (Routine); Ordered 08/28/20 Ordered By: Ana Maria Parmar Referrals: Ceasar Garcia MD [Primary Care Provider] - Discharge Diet: Usual diet Discharge Activity: Limit activity as instructed Patient Instructions: Sciatica (ED), Chronic Back Pain (ED) Activity Restrictions/Additional Instructions: Apply warm moist heat to the area several times daily as needed for pain Continue naproxen as needed for pain Continue Robaxin as needed for pain Apply patches as needed for pain, follow-up with your primary care provider for low back pain. Return to the emergency department if you develop urinary or bowel incontinence, worsening back pain Coding Level of Care Code ED Coin Rolling Machine Operator for Chg Fwd Exam Comprehensive
[2020-08-28] MEDS: ketorolac 60 mg/2 mL INJ IM (19:52)
== END 2020-08-28 20:00 | disposition home or self-care (01) ==
PROVIDERS: Emergency Provider Nurse Practitioner Family; PCP Family Medicine
DX: M54.42 Lumbago with sciatica, left side (principal); F17.210 Nicotine dependence, cigarettes, uncomplicated
CPT/HCPCS: 12345; 96372; 99281; 99283; J1885

== ENCOUNTER 2020-08-29 19:33 | Inpatient (IN) | payer MEDICAID, SELFPAY ==
--- NOTE | 2020-08-29 19:40 | ED_ITS ---
HPI - Psych General: Chief Complaint: Psychiatric Symptoms Stated Complaint: MHE Time Seen by Provider: 08/29/20 19:36 Source: patient and police Mode of arrival: other Limitations: no limitations History of Present Illness: HPI Narrative: 45-year-old male that is here with police. He called police and stated he want to kill himself. Patient has been drinking. Patient is well-known to the ER. He is verbally abusive to staff here and did threaten one of the nurses and had to give him meds to sedate him. He has no specific plan but states he just wants to . He denies any worsening improving factors. Associated symptoms: Reports depression Review of Systems Const: Denies: fever(s), chills, body aches or change in appetite Eyes: Denies: blurry vision or eye discomfort ENMT: Denies: throat pain or dental pain Card: Denies: chest pain Resp: Denies: dyspnea GI: Denies: abdominal pain, nausea, vomiting or diarrhea : Denies: dysuria Musc: Denies: neck pain or back pain Skin/Breast: Denies: rash Neuro: Denies: headache(s) Psych: Reports: depression Stanton/Lymph: Denies: easy bruising All/Imm: Denies: urticaria PFSH ED PFSH: Medical History (Updated 08/29/20 @ 21:15 by Romario Ahmadi MD) Alcohol dependence, in remission Alcohol dependence, uncomplicated Bipolar disorder, current episode mixed, severe, with psychotic features Nicotine dependence, cigarettes, uncomplicated Other stimulant dependence, in remission Social History Smoking and tobacco status: current every day smoker cigarettes Packs smoked per day: 1 Smoking risk assessment/counseling performed?: Yes Tobacco counseling given: counseling >3 minutes Physical Exam Const: COMMON NORMALS: no acute distress, patient oriented x3 and healthy appearing HENMT: COMMON NORMALS: normocephalic and atraumatic HEAD & SCALP: normocephalic and atraumatic Eye: COMMON NORMALS: Equal, round and reactive pupils present and EOMs intact bilaterally PUPIL: Yes Equal, round and reactive pupils present Neck/C-Spine: COMMON NORMALS: full ROM and supple Chest: COMMONS NORMALS: normal inspection of the chest and normal palpation of entire chest wall Resp: COMMON NORMALS: normal respiratory effort, No retractions, No use of accessory muscles and clear to auscultation bilaterally AUSCULTATION: clear to auscultation bilaterally Cardio: COMMON NORMALS: regular rate, regular rhythm and No murmurs present (Cardio) RATE: regular rate RHYTHM: regular rhythm GI: COMMON NORMALS: Normal to inspection, nondistended, normoactive bowel sounds present, Soft to palpation, non-tender and no masses PALPATION: Yes Soft to palpation Extremity: COMMON NORMALS: normal to inspection and full ROM Neuro: COMMON NORMALS: patient oriented x3, moves all extremities and no focal motor deficits Psych: THOUGHT CONTENT: Yes Suicidality present OTHER: Is very intoxicated and agitated Skin: COMMON NORMALS: no rashes or lesions noted and no wounds GENERAL SKIN EXAM: no rashes or lesions noted MDM - Psych MDM Narrative: Medical decision making narrative: Patient presents here with suicidal ideation along with alcohol intoxication. I spoke to Dr. Navas and will admit the psychiatric unit. Patient is medically cleared. Lab Data: Labs: Lab Results 08/29/20 08/29/20 08/29/20 Range/Units 19:59 19:59 20:02 WBC 8.4 (4.0-10.0) 10^3/ uL RBC 4.11 (4.1-5.3) 10^6/u L Hgb 13.5 (11.7-16.6) g/dL Hct 41.5 L (42.0-52.0) % MCV 101.0 H (80-94) fL MCH 32.8 (28.0-34.0) pg MCHC 32.5 (30.0-36.0) g/dL RDW 13.0 (12.1-15.1) % Plt Count 291 (130-400) 10^3/c mm MPV 9.7 (7.4-10.4) fL Neut % (Auto) 61.4 % Lymph % (Auto) 28.0 % [place] % (Auto) 8.7 % Eos % (Auto) 1.0 % Baso % (Auto) 0.8 % Neut # (Auto) 5.15 (1.8-7.7) 10^3/u L Lymph # (Auto) 2.4 (0.8-4.8) 10^3/u L [place] # (Auto) 0.7 (0.2-0.9) 10^3/u L Eos # (Auto) 0.1 (0.0-0.8) 10^3/u L Baso # (Auto) 0.1 (0.0-0.1) 10^3/u L Nucleated RBC % (a uto) 0 % Nucleated RBCs # 0.0 /100WBC Sodium 146 H (136-145) mmol/L Potassium 4.0 (3.5-5.1) mmol/L Chloride 109 H (98-107) mmol/L Carbon Dioxide 24 (22-29) mmol/L Anion Gap 17.0 (5-19) BUN 13 (6-20) mg/dL Creatinine 0.5 L (0.7-1.2) mg/dL GFR Calculation 179.0 H (90-130) mL/min Glucose 103 (65-115) mg/dL Calculated Osmolal ity 302 H (285-295) mOsm/k g Calcium 9.1 (8.5-10.5) mg/dL Total Bilirubin 0.2 (0.15-1.2) mg/dL AST 41 H (0-40) U/L ALT 50 H (0-41) U/L Alkaline Phosphata se 79 (40-130) IU/L Total Protein 7.4 (6.6-8.7) g/dL Albumin 4.4 (3.5-5.2) g/dL Globulin 3.0 (1.3-4.6) g/dL Salicylates < 0.3 L (3-10) mg/dL Urine Opiates Scre en Negative (Negative) ng/mL Acetaminophen < 5.0 L (10-30) ug/mL Ur Barbiturates Sc reen Negative (Negative) ng/mL Ur Phencyclidine S crn Negative (Negative) ng/mL Ur Amphetamines Sc reen Negative (Negative) ng/mL U Benzodiazepines Scrn Negative (Negative) ng/mL Urine Cocaine Scre en Negative (Negative) ng/mL U Marijuana (THC) Screen Negative (Negative) ng/mL Ethyl Alcohol 186 H (0-10) mg/dL Discharge Plan Discharge Patient Disposition: Admitted As Inpatient Clinical Impression: Suicidal ideation, Alcohol dependence, uncomplicated Condition: Stable Coding Level of Care Code ED Bilingual Hr Generalist for Chg Fwd Exam Comprehensive
[2020-08-29 19:41] VITALS: BP 129/106; PULSE 92; RESP 20; TEMP 36.6; O2SAT 98; BMI 27.8
[2020-08-29] MEDS: LORazepam 2 mg/mL INJ 1 mL IM (20:01)
[2020-08-29] MEDS: haloperidol inj 5 mg/mL INJ 1 mL IM (20:01)
[2020-08-29 20:04] LABS: Basophils # 0.1 10^3/uL (0.0-0.1); Basophils % 0.8 %; Eosinophils # 0.1 10^3/uL (0.0-0.8); Hematocrit 41.5 % (42.0-52.0); Hemoglobin 13.5 g/dL (11.7-16.6); Lymphocytes # 2.4 10^3/uL (0.8-4.8); Mean Corpuscular HGB Conc 32.5 g/dL (30.0-36.0); Mean Corpuscular Hemoglobin 32.8 pg (28.0-34.0); Mean Platelet Volume 9.7 fL (7.4-10.4); Monocytes # 0.7 10^3/uL (0.2-0.9); Monocytes % 8.7 %; Neutrophils # 5.15 10^3/uL (1.8-7.7); Neutrophils % 61.4 %; Nucleated Red Blood Cells % 0 %; Platelet Count 291 10^3/cmm (130-400); Red Blood Count 4.11 10^6/uL (4.1-5.3); White Blood Count 8.4 10^3/uL (4.0-10.0)
[2020-08-29 20:19] LABS: Amphetamines Screen Urine Negative (Negative); Barbiturates Screen Urine Negative (Negative); Benzodiazepines Screen Urine Negative (Negative); Cocaine Screen Urine Negative (Negative); Opiate Screen Urine Negative (Negative); PCP Screen Urine Negative (Negative); THC Screen Urine Negative (Negative)
[2020-08-29 20:29] LABS: Alanine Aminotransferase 50 U/L (0-41); Albumin Level 4.4 g/dL (3.5-5.2); Alcohol Level 186 mg/dL (0-10); Alkaline Phosphatase 79 IU/L (40-130); Aspartate Amino Transferase 41 U/L (0-40); Blood Urea Nitrogen 13 mg/dL (6-20); Calcium 9.1 mg/dL (8.5-10.5); Carbon Dioxide 24 mmol/L (22-29); Chloride 109 mmol/L (98-107); Glucose 103 mg/dL (65-115); Osmolality Calculated 302 mOsm/kg (285-295); Sodium 146 mmol/L (136-145); Total Bilirubin 0.2 mg/dL (0.15-1.2); Total Protein 7.4 g/dL (6.6-8.7)
[2020-08-29 20:37] LABS: Acetaminophen < 5.0 ug/mL (10-30); Salicylate < 0.3 mg/dL (3-10)
[2020-08-29 22:07] VITALS: BP 100/69; PULSE 75; RESP 18; O2SAT 95
[2020-08-29 22:26] VITALS: BP 118/79; PULSE 69; RESP 18; O2SAT 97
[2020-08-29 22:53] VITALS: BP 127/91; PULSE 84; RESP 17; TEMP 37; O2SAT 95
[2020-08-30 06:00] VITALS: BP 126/81; PULSE 69; RESP 17; TEMP 37; O2SAT 97
[2020-08-30] MEDS: sertraline 50 mg Tablet PO (08:22)
[2020-08-30] MEDS: lidocaine 5% Patch 1 PATCH TOPICAL ×2 (08:23→17:15)
[2020-08-30 13:21] VITALS: BP 136/86; PULSE 89; RESP 18; TEMP 36.9
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
[2020-08-30 20:15] VITALS: BP 113/75; PULSE 70; RESP 17; TEMP 37; O2SAT 98
[2020-08-30] MEDS: OLANZapine 10 mg TABLET 20 MG PO (20:45)
[2020-08-30] MEDS: trazodone 50 mg Tablet PO (20:46)
[2020-08-31 06:00] VITALS: BP 144/89; PULSE 56; RESP 14; TEMP 36.9; O2SAT 98
[2020-08-31] MEDS: lidocaine 5% Patch 1 PATCH TOPICAL (08:23)
[2020-08-31] MEDS: sertraline 50 mg Tablet PO (08:23)
[2020-08-31 13:38] VITALS: BP 124/80; PULSE 93; RESP 18; TEMP 36.9; O2SAT 98
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
[2020-08-31 17:24] VITALS: BP 124/80; PULSE 93; RESP 18; TEMP 36.9; O2SAT 98
--- NOTE | 2020-09-01 09:08 | PC.RESP ---
SMOKING CESSATION INFORMATION SENT TO PATIENT.
== END 2020-08-31 17:38 | disposition home or self-care (01) | DRG 885 ==
LOC: ER 21:15 → NP 21:23
PROVIDERS: Admitting Provider Psychiatry & Neurology Psychiatry; Emergency Provider Emergency Medicine; PCP Family Medicine; Visit Provider Psychiatry & Neurology Psychiatry
DX: F31.64 Bipolar disorder, current episode mixed, severe, with psychotic features (principal); R45.851 Suicidal ideations; M54.42 Lumbago with sciatica, left side; F17.210 Nicotine dependence, cigarettes, uncomplicated
CPT/HCPCS: 12345; 80053; 80306; 80307; 85025; 96372; 99284; J1630; J2060

== ENCOUNTER → 2020-09-02 08:06 | Outpatient (BNVA) | payer MEDICAID, SELFPAY | PROVIDERS: PCP Family Medicine; Visit Provider Nurse Practitioner | DX: F31.64 Bipolar disorder, current episode mixed, severe, with psychotic features (principal); F17.210 Nicotine dependence, cigarettes, uncomplicated; F10.21 Alcohol dependence, in remission; F15.21 Other stimulant dependence, in remission; F43.12 Post-traumatic stress disorder, chronic | CPT/HCPCS: 99213 ==

== ENCOUNTER 2020-09-21 00:12 | Emergency (ER) | payer MEDICAID, SELFPAY ==
[2020-09-21 00:20] VITALS: BP 159/90; PULSE 102; RESP 22; TEMP 36.8; O2SAT 96; BMI 24.8
--- NOTE | 2020-09-21 00:47 | ED_ITS ---
HPI - Back Pain/Injury General: Chief Complaint: Back Pain/Injury Stated Complaint: Back Pain Time Seen by Provider: 09/21/20 00:29 History of Present Illness: HPI Narrative: 45-year-old male well-known to the ER. He presents with back pain. He says he has chronic back pain for over a year. It is radiating down his left posterior lower extremity. It is left- sided more than right-sided. MD elicited complaint: back pain Pertinent past history: prior back pain Onset (ago): year(s) (1) Timing: constant Severity: similar to previous episodes Similar Symptoms Previously: Yes Quality: sharp Location: lumbar spine Radiation: left leg below the knee Exacerbating factors: movement and walking Relieving factors: none Associated symptoms: Deny abdominal pain, chills, fecal incontinence, fever(s), hematuria or weakness Review of Systems Const: Denies: fever(s) or chills Card: Denies: chest pain or palpitations Resp: Denies: dyspnea GI: Denies: abdominal pain or fecal incontinence : Denies: hematuria PFSH ED PFSH: Medical History (Updated 09/21/20 @ 01:18 by Alireza Adam DO) Alcohol dependence, in remission Alcohol dependence, uncomplicated Bipolar disorder, current episode mixed, severe, with psychotic features Nicotine dependence, cigarettes, uncomplicated Other stimulant dependence, in remission Social History Smoking and tobacco status: current every day smoker cigarettes Packs smoked per day: 1 Smoking risk assessment/counseling performed?: Yes Tobacco counseling given: counseling >3 minutes Physical Exam Const: EXAM LIMITATIONS: behavioral limitations ORIENTATION/CONSCIOUSNESS: Yes awake, Yes oriented to person, Yes oriented to place and Yes oriented to time Chest: COMMONS NORMALS: normal inspection of the chest Resp: COMMON NORMALS: normal respiratory effort, No retractions, No use of accessory muscles and clear to auscultation bilaterally AUSCULTATION: clear to auscultation bilaterally Cardio: COMMON NORMALS: regular rate and regular rhythm RATE: regular rate RHYTHM: regular rhythm GI: COMMON NORMALS: Soft to palpation and non-tender PALPATION: Yes Soft to palpation Back/Pelvis: LUMBAR SPINE/LOWER BACK: Yes lumbar spinal tenderness, Yes paraspinal muscle tenderness, No paraspinal muscle spasm and Yes straight leg raise negative bilaterally Neuro: SENSORIUM/ORIENTATION: Yes oriented to person, Yes oriented to place and Yes oriented to time Course Vital Signs: Vital signs: Vital Signs Temperature 98.3 F 09/21/20 01:25 Pulse Rate 108 H 09/21/20 01:25 Respiratory Rate 17 09/21/20 01:25 Blood Pressure 135/92 09/21/20 01:25 Pulse Oximetry 96 09/21/20 01:25 Discharge Plan Discharge Patient Disposition: Home Clinical Impression: Lumbar radiculopathy Condition: Stable Prescriptions: New Medrol (Isiah) 4 mg tablets,dose pack See Rx Instructions .ROUTE .COMPLEX Qty: 21 RF: 0 No Action hydroxyzine HCl 50 mg tablet 50 mg PO BID PRN (Reason: anxiety) Qty: 60 RF: 1 olanzapine 20 mg tablet 20 mg PO BEDTIME Qty: 30 RF: 1 Zoloft 50 mg tablet 50 mg PO DAILY 30 Days Qty: 30 RF: 1 lidocaine [Lidoderm] 5 % adhesive patch,medicated 1 patch topical BID Qty: 30 RF: 0 methocarbamol 750 mg tablet 750 mg PO TID PRN (Reason: Muscle Spasm) RF: 0 acetaminophen-codeine [Tylenol-Codeine #3] 300-30 mg tablet 1 tab PO Q4H PRN (Reason: pain) Qty: 10 RF: 0 naproxen [Naprosyn] 500 mg tablet 500 mg PO BID PRN (Reason: pain) Qty: 20 RF: 0 Discharge Orders: Discharge ED (Routine); Ordered 09/21/20 Ordered By: Alireza Adam Referrals: Ceasar Garcia MD [Primary Care Provider] - 4-7 days Discharge Diet: Advance as tolerated Discharge Activity: Increase activity as tolerated Patient Instructions: Lumbar Radiculopathy (ED) Coding Level of Care Code ED Peoplesoft Administrator for Chg Fwd Exam Detailed
[2020-09-21] MEDS: LORazepam 2 mg/mL INJ 1 mL IM (00:58)
[2020-09-21] MEDS: ketorolac 60 mg/2 mL INJ IM (00:59)
[2020-09-21] MEDS: predniSONE 20 mg Tablet 40 MG PO (01:01)
[2020-09-21 01:25] VITALS: BP 135/92; PULSE 108; RESP 17; TEMP 36.8; O2SAT 96
== END 2020-09-21 01:28 | disposition home or self-care (01) ==
PROVIDERS: Emergency Provider Emergency Medicine; PCP Family Medicine
DX: M54.16 Radiculopathy, lumbar region (principal); F17.210 Nicotine dependence, cigarettes, uncomplicated; Z79.891 Long term (current) use of opiate analgesic; Z79.1 Long term (current) use of non-steroidal anti-inflammatories (NSAID)
CPT/HCPCS: 12345; 96372; 99281; 99283; J1885; J2060; J7512

== ENCOUNTER 2020-10-04 19:43 | Emergency (ER) | payer MEDICAID, SELFPAY ==
[2020-10-04 19:46] VITALS: BP 121/74; PULSE 85; RESP 16; TEMP 36.7; O2SAT 97; BMI 25.0
--- NOTE | 2020-10-04 20:15 | W.ED.BACK ---
HPI - Back Pain/Injury General: Chief Complaint: Back Pain/Injury Stated Complaint: lower back pain Time Seen by Provider: 10/04/20 20:13 History of Present Illness: HPI Narrative: Patient has chronic back pain is out of medication had MRI done last week sees a provider at [facility] in [place]. Did not get the medication from that provider. Patient states any medicine takes does not help anyway. Patient is well-known to me. MD elicited complaint: back pain Pertinent past history: prior back pain Onset (ago): year(s) Timing: constant Associated symptoms: Reports no associated symptoms; Deny abdominal pain, chills, fever(s), nausea or vomiting Review of Systems Const: Denies: fever(s), chills or body aches Eyes: Denies: change in vision or blurry vision ENMT: Denies: throat pain or nasal congestion Card: Denies: chest pain or dyspnea on exertion Resp: Denies: dyspnea, productive cough or non-productive cough GI: Denies: abdominal pain, nausea or vomiting : Denies: difficulty urinating Musc: Reports: back pain (Hurts across low back); Denies: extremity pain Skin/Breast: Denies: rash Neuro: Denies: headache(s) Psych: Denies: anxiety or depression Stantno/Lymph: Denies: easy bruising PFSH ED PFSH: Medical History (Updated 10/04/20 @ 20:21 by PEDRO Medina) Alcohol dependence, in remission Alcohol dependence, uncomplicated Bipolar disorder, current episode mixed, severe, with psychotic features Nicotine dependence, cigarettes, uncomplicated Other stimulant dependence, in remission Social History Smoking and tobacco status: current every day smoker cigarettes Packs smoked per day: 1 Smoking risk assessment/counseling performed?: Yes Tobacco counseling given: counseling >3 minutes Physical Exam Const: COMMON NORMALS: no acute distress : COMMON NORMALS: Yes no CVA tenderness BLADDER/KIDNEY EXAM: Yes no CVA tenderness Back/Pelvis: COMMON NORMALS: no CVA tenderness THORACIC SPINE/UPPER BACK: Yes normal to inspection LUMBAR SPINE/LOWER BACK: Yes normal to inspection and Yes lumbar ROM normal Psych: COMMON NORMALS: mental status grossly normal Course Vital Signs: Vital signs: Vital Signs Temperature 98.0 F 10/04/20 19:46 Pulse Rate 85 12/19/20 19:46 Respiratory Rate 16 10/04/20 19:46 Blood Pressure 121/74 10/04/20 19:46 Pulse Oximetry 97 10/04/20 19:46 Discharge Plan Discharge Patient Disposition: Home Clinical Impression: Lumbar radiculopathy Condition: Stable Prescriptions: New Celebrex 200 mg capsule 200 mg PO BID Qty: 20 RF: 0 No Action hydroxyzine HCl 50 mg tablet 50 mg PO BID PRN (Reason: anxiety) Qty: 60 RF: 1 olanzapine 20 mg tablet 20 mg PO BEDTIME Qty: 30 RF: 1 Zoloft 50 mg tablet 50 mg PO DAILY 30 Days Qty: 30 RF: 1 lidocaine [Lidoderm] 5 % adhesive patch,medicated 1 patch topical BID Qty: 30 RF: 0 methocarbamol 750 mg tablet 750 mg PO TID PRN (Reason: Muscle Spasm) RF: 0 Medrol (Isiah) 4 mg tablets,dose pack See Rx Instructions .ROUTE .COMPLEX Qty: 21 RF: 0 acetaminophen-codeine [Tylenol-Codeine #3] 300-30 mg tablet 1 tab PO Q4H PRN (Reason: pain) Qty: 10 RF: 0 naproxen [Naprosyn] 500 mg tablet 500 mg PO BID PRN (Reason: pain) Qty: 20 RF: 0 Discharge Orders: Discharge ED (Routine); Ordered 10/04/20 Ordered By: Mikael Taylor Referrals: Ceasar Garcia MD [Primary Care Provider] - Discharge Diet: Usual diet Discharge Activity: Resume usual activity Patient Instructions: Lumbar Radiculopathy (ED) Activity Restrictions/Additional Instructions: Follow-up with medical provider as directed. Take medications as prescribed. Return to the ER or your medical provider if condition worsens. Please read and understand discharge instructions. If any questions ask please. Coding Level of Care Code ED Superintendent Production for Justin Sadler
[2020-10-04] MEDS: CELEcoxib 200 mg Capsule 400 MG PO (20:29)
== END 2020-10-04 20:31 | disposition home or self-care (01) ==
PROVIDERS: Emergency Provider Nurse Practitioner Family; PCP Family Medicine
DX: M54.16 Radiculopathy, lumbar region (principal); F17.210 Nicotine dependence, cigarettes, uncomplicated
CPT/HCPCS: 12345; 99281; 99282

== ENCOUNTER → 2020-10-28 07:39 | Outpatient (BNVA) | payer MEDICAID, SELFPAY | PROVIDERS: PCP Family Medicine; Visit Provider Nurse Practitioner | DX: F31.64 Bipolar disorder, current episode mixed, severe, with psychotic features (principal); F15.21 Other stimulant dependence, in remission; F17.210 Nicotine dependence, cigarettes, uncomplicated; F10.20 Alcohol dependence, uncomplicated | CPT/HCPCS: 99213 ==

== ENCOUNTER 2020-10-31 19:33 | Inpatient (IN) | payer MEDICAID, SELFPAY ==
[2020-10-31 19:48] VITALS: BP 113/81; PULSE 80; RESP 18; TEMP 36.8; O2SAT 95; BMI 22.3
--- NOTE | 2020-10-31 20:05 | W.ED.PSYCH ---
HPI - Psych General: Chief Complaint: Psychiatric Symptoms Stated Complaint: si Time Seen by Provider: 10/31/20 19:39 History of Present Illness: HPI Narrative: This patient is a 45 year old male presenting to the ED with homicidal and suicidal ideation. He is intoxicated and states that he is going to get his gun and kill everyone and himself. He says that he has access to a gun. MD complaint: suicidal ideation and other (homicidal ideation, intoxication) Onset (ago): unknown History of same: Yes Associated psychiatric symptoms: suicidal ideation and homicidal ideation Review of Systems General: Reports: ROS unobtainable due to mental status PFS ED PFSH: Medical History Alcohol dependence, in remission Alcohol dependence, uncomplicated Bipolar disorder, current episode mixed, severe, with psychotic features Nicotine dependence, cigarettes, uncomplicated Other stimulant dependence, in remission Social History Smoking and tobacco status: current every day smoker cigarettes Packs smoked per day: 1 Smoking risk assessment/counseling performed?: Yes Tobacco counseling given: counseling >3 minutes Physical Exam Const: GENERAL APPEARANCE: combative, disheveled and odor of alcohol detected HENMT: HEAD & SCALP: normal to inspection FACE & SINUS: normal facial exam Eye: GENERAL EYE: appearance normal, both eyes and all related structures Neck/C-Spine: COMMON NORMALS: supple and no meningeal signs Chest: COMMONS NORMALS: normal inspection of the chest Resp: COMMON NORMALS: normal respiratory effort and No use of accessory muscles Cardio: OTHER: normal peripheral perfusion Extremity: COMMON NORMALS: normal to inspection Neuro: COMMON NORMALS: moves all extremities, no focal motor deficits and no sensory deficits noted MENINGEAL SIGNS: Yes no meningeal signs Psych: APPEARANCE: Yes unkempt ATTITUDE: Yes uncooperative and Yes hostile SPEECH: Yes slurred MOOD & AFFECT: Yes hostile affect THOUGHT CONTENT: Yes Suicidality present and Yes Homicidality present Skin: COMMON NORMALS: no rashes or lesions noted and turgor normal GENERAL SKIN EXAM: no rashes or lesions noted and turgor normal MDM - Psych Lab Data: Labs: Lab Results 10/31/20 10/31/20 10/31/20 Range/Units 21:00 21:00 21:09 WBC 6.1 (4.0-10.0) 10^3/ uL RBC 4.52 (4.1-5.3) 10^6/u L Hgb 14.9 (11.7-16.6) g/dL Hct 45.4 (42.0-52.0) % MCV 100.4 H (80-94) fL MCH 33.0 (28.0-34.0) pg MCHC 32.8 (30.0-36.0) g/dL RDW 12.2 (12.1-15.1) % Plt Count 255 (130-400) 10^3/c mm MPV 10.5 H (7.4-10.4) fL Neut % (Auto) 32.8 % Lymph % (Auto) 53.6 % [place] % (Auto) 6.3 % Eos % (Auto) 6.0 % Baso % (Auto) 1.0 % Neut # (Auto) 1.99 (1.8-7.7) 10^3/u L Lymph # (Auto) 3.2 (0.8-4.8) 10^3/u L [place] # (Auto) 0.4 (0.2-0.9) 10^3/u L Eos # (Auto) 0.4 (0.0-0.8) 10^3/u L Baso # (Auto) 0.1 (0.0-0.1) 10^3/u L Nucleated RBC % (a uto) 0 % Nucleated RBCs # 0.0 /100WBC Sodium 143 (136-145) mmol/L Potassium 4.2 (3.5-5.1) mmol/L Chloride 106 (98-107) mmol/L Carbon Dioxide 22 (22-29) mmol/L Anion Gap 19.2 H (5-19) BUN 8 (6-20) mg/dL Creatinine 0.5 L (0.7-1.2) mg/dL GFR Calculation 179.0 H (90-130) mL/min Glucose 99 (65-115) mg/dL Calculated Osmolal ity 294 (285-295) mOsm/k g Calcium 9.0 (8.5-10.5) mg/dL Total Bilirubin 0.2 (0.15-1.2) mg/dL AST 112 H (0-40) U/L ALT 149 H (0-41) U/L Alkaline Phosphata se 88 (40-130) IU/L Total Protein 7.7 (6.6-8.7) g/dL Albumin 4.2 (3.5-5.2) g/dL Globulin 3.5 (1.3-4.6) g/dL Urine Color Yellow (Yellow) Urine Appearance Clear (CLEAR) Urine pH 5 (5-7) Ur Specific Gravit y 1.010 (1.005-1.030) Urine Protein Neg (Negative) Urine Glucose (UA) Norm (Normal) Urine Ketones Negative (Negative) Urine Blood Neg (Negative) Urine Nitrate Negative (Negative) Urine Bilirubin Neg (Negative) Urine Urobilinogen Norm (Negative) mg/dL Ur Leukocyte Nicolasa ase Negative (Negative) Salicylates < 0.3 L (3-10) mg/dL Urine Opiates Scre en (Negative) ng/mL Acetaminophen < 5.0 L (10-30) ug/mL Ur Barbiturates Sc reen (Negative) ng/mL Ur Phencyclidine S crn (Negative) ng/mL Ur Amphetamines Sc reen (Negative) ng/mL U Benzodiazepines Scrn (Negative) ng/mL Urine Cocaine Scre en (Negative) ng/mL U Marijuana (THC) Screen (Negative) ng/mL Ethyl Alcohol 252 H (0-10) mg/dL 10/31/20 Range/Units 21:09 WBC (4.0-10.0) 10^3/ uL RBC (4.1-5.3) 10^6/u L Hgb (11.7-16.6) g/dL Hct (42.0-52.0) % MCV (80-94) fL MCH (28.0-34.0) pg MCHC (30.0-36.0) g/dL RDW (12.1-15.1) % Plt Count (130-400) 10^3/c mm MPV (7.4-10.4) fL Neut % (Auto) % Lymph % (Auto) % [place] % (Auto) % Eos % (Auto) % Baso % (Auto) % Neut # (Auto) (1.8-7.7) 10^3/u L Lymph # (Auto) (0.8-4.8) 10^3/u L [place] # (Auto) (0.2-0.9) 10^3/u L Eos # (Auto) (0.0-0.8) 10^3/u L Baso # (Auto) (0.0-0.1) 10^3/u L Nucleated RBC % (a uto) % Nucleated RBCs # /100WBC Sodium (136-145) mmol/L Potassium (3.5-5.1) mmol/L Chloride (98-107) mmol/L Carbon Dioxide (22-29) mmol/L Anion Gap (5-19) BUN (6-20) mg/dL Creatinine (0.7-1.2) mg/dL GFR Calculation (90-130) mL/min Glucose (65-115) mg/dL Calculated Osmolal ity (285-295) mOsm/k g Calcium (8.5-10.5) mg/dL Total Bilirubin (0.15-1.2) mg/dL AST (0-40) U/L ALT (0-41) U/L Alkaline Phosphata se (40-130) IU/L Total Protein (6.6-8.7) g/dL Albumin (3.5-5.2) g/dL Globulin (1.3-4.6) g/dL Urine Color (Yellow) Urine Appearance (CLEAR) Urine pH (5-7) Ur Specific Gravit y (1.005-1.030) Urine Protein (Negative) Urine Glucose (UA) (Normal) Urine Ketones (Negative) Urine Blood (Negative) Urine Nitrate (Negative) Urine Bilirubin (Negative) Urine Urobilinogen (Negative) mg/dL Ur Leukocyte Nicolasa ase (Negative) Salicylates (3-10) mg/dL Urine Opiates Scre en Negative (Negative) ng/mL Acetaminophen (10-30) ug/mL Ur Barbiturates Sc reen Negative (Negative) ng/mL Ur Phencyclidine S crn Negative (Negative) ng/mL Ur Amphetamines Sc reen Negative (Negative) ng/mL U Benzodiazepines Scrn Negative (Negative) ng/mL Urine Cocaine Scre en Negative (Negative) ng/mL U Marijuana (THC) Screen Negative (Negative) ng/mL Ethyl Alcohol (0-10) mg/dL Discharge Plan Discharge Prescriptions: No Action hydroxyzine HCl 50 mg tablet 50 mg PO BID PRN (Reason: anxiety) Qty: 60 RF: 1 olanzapine 20 mg tablet 20 mg PO BEDTIME Qty: 30 RF: 1 Zoloft 50 mg tablet 50 mg PO DAILY 30 Days Qty: 30 RF: 1 lidocaine [Lidoderm] 5 % adhesive patch,medicated 1 patch topical BID Qty: 30 RF: 0 methocarbamol 750 mg tablet 750 mg PO TID PRN (Reason: Muscle Spasm) RF: 0 Medrol (Isiah) 4 mg tablets,dose pack See Rx Instructions .ROUTE .COMPLEX Qty: 21 RF: 0 Celebrex 200 mg capsule 200 mg PO BID Qty: 20 RF: 0 acetaminophen-codeine [Tylenol-Codeine #3] 300-30 mg tablet 1 tab PO Q4H PRN (Reason: pain) Qty: 10 RF: 0 naproxen [Naprosyn] 500 mg tablet 500 mg PO BID PRN (Reason: pain) Qty: 20 RF: 0 Coding Level of Care Code ED Product Inspection Coordinator for Chg Fwd Exam Comprehensive
[2020-10-31] MEDS: haloperidol inj 5 mg/mL INJ 1 mL IM (20:15)
[2020-10-31] MEDS: LORazepam 2 mg/mL INJ 1 mL IM (20:15)
[2020-10-31] MEDS: diphenhydrAMINE 50 mg/mL SDV 1mL IM (20:16)
[2020-10-31 21:20] LABS: Basophils # 0.1 10^3/uL (0.0-0.1); Eosinophils # 0.4 10^3/uL (0.0-0.8); Hematocrit 45.4 % (42.0-52.0); Hemoglobin 14.9 g/dL (11.7-16.6); Lymphocytes # 3.2 10^3/uL (0.8-4.8); Lymphocytes % 53.6 %; Mean Corpuscular HGB Conc 32.8 g/dL (30.0-36.0); Mean Corpuscular Volume 100.4 fL (80-94); Mean Platelet Volume 10.5 fL (7.4-10.4); Monocytes # 0.4 10^3/uL (0.2-0.9); Monocytes % 6.3 %; Neutrophils # 1.99 10^3/uL (1.8-7.7); Neutrophils % 32.8 %; Nucleated Red Blood Cells % 0 %; Platelet Count 255 10^3/cmm (130-400); Red Blood Count 4.52 10^6/uL (4.1-5.3); Red Cell Distribution Width 12.2 % (12.1-15.1); White Blood Count 6.1 10^3/uL (4.0-10.0)
[2020-10-31 21:43] LABS: Alanine Aminotransferase 149 U/L (0-41); Albumin Level 4.2 g/dL (3.5-5.2); Alcohol Level 252 mg/dL (0-10); Alkaline Phosphatase 88 IU/L (40-130); Aspartate Amino Transferase 112 U/L (0-40); Blood Urea Nitrogen 8 mg/dL (6-20); Carbon Dioxide 22 mmol/L (22-29); Chloride 106 mmol/L (98-107); Globulin 3.5 g/dL (1.3-4.6); Glucose 99 mg/dL (65-115); Osmolality Calculated 294 mOsm/kg (285-295); Sodium 143 mmol/L (136-145); Total Bilirubin 0.2 mg/dL (0.15-1.2); Total Protein 7.7 g/dL (6.6-8.7)
[2020-10-31 21:49] LABS: Acetaminophen < 5.0 ug/mL (10-30); Salicylate < 0.3 mg/dL (3-10)
[2020-10-31 21:52] LABS: Anion Gap 19.2 (5-19); Potassium 4.2 mmol/L (3.5-5.1)
[2020-10-31 21:57] LABS: Add Urine Microscopic? NO
[2020-10-31 22:04] LABS: Bilirubin Urine Neg (Negative); Blood Urine Neg (Negative); Glucose Urine UA Norm (Normal); Ketones Urine Negative (Negative); Leukocyte Esterase Urine Negative (Negative); Nitrate Urine Negative (Negative); Protein Urine Neg (Negative); Urine Appearance Clear (CLEAR); Urine Color Yellow (Yellow); Urobilinogen Urine Norm (Negative); pH Urine 5 (5-7)
[2020-10-31 22:12] LABS: Amphetamines Screen Urine Negative (Negative); Barbiturates Screen Urine Negative (Negative); Benzodiazepines Screen Urine Negative (Negative); Cocaine Screen Urine Negative (Negative); Opiate Screen Urine Negative (Negative); PCP Screen Urine Negative (Negative); THC Screen Urine Negative (Negative)
[2020-10-31 22:15] VITALS: RESP 16; O2SAT 97
[2020-11-01 00:15] VITALS: RESP 14
[2020-11-01 00:42] LABS: Alcohol Level 172 mg/dL (0-10)
[2020-11-01 00:58] VITALS: BP 108/62; PULSE 72; RESP 14; O2SAT 97
[2020-11-01 01:24] VITALS: BP 145/96; PULSE 88; RESP 17; TEMP 36.9; O2SAT 97
--- NOTE | 2020-11-01 02:36 | PC.NURSE ---
Involuntary patient admitted from the ED. The patient presented with HI/SI. Stated he would get a gun and shoot everyone and himself. Blood EtOH 252. DOA negative. Threatening toward staff members in the ED. Given B52. Sedated upon arrival to NPU. Unable to complete admission assessments.
[2020-11-01 06:00] VITALS: RESP 17
[2020-11-01] MEDS: thiamine 100 mg Tablet PO (08:13)
[2020-11-01] MEDS: folic acid 1 mg Tablet PO (08:13)
[2020-11-01] MEDS: multivitamin therapeutic Tablet 1 TAB PO (08:13)
--- NOTE | 2020-11-01 12:22 | P.HP_ITS ---
Providers/Chief Complaint Admitting Physician: Melodie Harris DO Primary Care Provider: Ceasar Garcia MD Chief Complaint: si HPI NPU History of Present Illness Rob Burnett is a 45 year old male well-known to this unit in emergency department with history of bipolar disorder, methamphetamine abuse, cannabis abuse, alcohol abuse presented to the emergency department intoxicated with alcohol and suicidal ideation. Patient cites multiple ongoing stressors as exacerbating his suicidal ideation and depressive symptoms. Patient is not very talkative and is a difficult historian but reports that he had been experiencing worsening depressive symptoms recently in the context of ongoing stressors. He currently denies any suicidal ideation but states that he was having suicidal thoughts yesterday. Patient reports being compliant with his medication and also reports being compliant with his [facility] [place] follow-up. Patient is unable to remember any recent manic or hypomanic episodes. Patient denies any recent psychotic symptoms, denies any auditory hallucinations, denies any visualizations, denies any delusions. Patient reports intermittent anxiety related to his ongoing stressors but denies any recent panic attacks. Patient states that he currently lives in his own house but has recently had his water shut off which exacerbated his stress and worsened his depressive symptoms. Patient has a longstanding history of presenting to the emergency department intoxicated with acute stressors endorsing suicidal ideation. Previous encounter notes were reviewed in conjunction with the interview above. Review of Systems General: Reports: 10 or more systems reviewed and unremarkable except in HPI and below Meds NPU Home Medications Medication Instructions Recorded Confirmed Last Taken Type No Known Home Medications 11/01/20 11/01/20 Unknown History Allergies Allergy/AdvReac Type Severity Reaction Status Date / Time No Known Allergies Allergy Verified 07/01/20 22:21 PFS NPU PFSH: Medical History (Updated 11/01/20 @ 12:35 by Melodie Harris DO) Alcohol dependence, in remission Alcohol dependence, uncomplicated Bipolar disorder, current episode mixed, severe, with psychotic features Nicotine dependence, cigarettes, uncomplicated Other stimulant dependence, in remission Social History Smoking and tobacco status: current every day smoker cigarettes Packs smoked per day: 1 Smoking risk assessment/counseling performed?: Yes Tobacco counseling given: counseling >3 minutes Other Psychiatric History: Other Psychiatric History: Patient reports being followed by [facility] [place] for medication management, reports last contact was by phone last week, states he is typically followed every 2 months Reports multiple past psychiatric hospitalizations cannot recall details or last hospitalization Denies past suicide attempts or self-harm behavior Mental Status Exam MSE Comments: Appears stated age, unshaven, unkempt, tired appearing, calm, not very forthcoming with information but interactive, fair eye contact Psychomotor activity is decreased, no agitation Speech is somewhat low volume, slow, spontaneous, fair articulation, not pressured I feel okay, incongruent, not labile Alert and oriented to person, place, time, situation Memory and concentration appear to be fair at best per interview Intellectual functioning appears to be average at best based on vocabulary, interview Thought process, linear but brief, no flight of ideas, no looseness of associations Thought content, no delusions, does not appear to be attending to any internal s timuli, no suicidal or homicidal ideation Insight and judgment appear to be fair Vitals/I&O/Wt Last Vital Signs Temp 98.4 F 11/01/20 01:24 Pulse 88 11/01/20 01:24 Resp 17 11/01/20 06:00 BP 145/96 11/01/20 01:24 Pulse Ox 97 11/01/20 01:24 Weight last 48 hrs Weight 72.575 kg Physical Exam Narrative: EXAM NARRATIVE: Emergency department physical examination to admission was reviewed Data NPU : 10/31/20 21:00 10/31/20 21:00 A&P Assessment and plan (1) Suicidal ideation: Status: Acute (2) Bipolar disorder, unspecified: Status: Acute (3) Alcohol dependence, uncomplicated: Status: Acute Additional A&P Information Patient with longstanding history of alcohol dependence, methamphetamine abuse, cannabis abuse, bipolar disorder presenting to the emergency department suicidal ideation in the context of ongoing stressors. Patient currently denying suicidal ideation although continues to report intermittent depressive symptoms with ongoing life stress. Patient would benefit from observation given recent suicidal ideation and worsening depressive symptoms as well as recent alcohol intoxication with history of maladaptive coping. Patient would benefit from restarting his medications during his observation. INVOLUNTARY ADMIT to NPU RESTART home medication including olanzapine 20 mg at bedtime, sertraline 50 mg daily with plan to titrate up targeting depressive symptoms Encourage patient to participate in unit activities to include unit milieu Coordinate with social work for safe discharge including post discharge follow- up Involuntary Hold Information 96 Hour Hold: 96 Hour Involuntary Admission: Yes 96 Hour Hold Ending Date: 10/31/20 96 Hour Hold Ending Time: 23:00 Attestations NPU Medical Necessity Statement*: Patient requires psychiatric hospitalization given recent suicidal ideation in the context of worsening depressive symptoms, maladaptive coping with alcohol use and possible need for medication stabilization. Anticipate patient's hospital stay exceeding 2 midnights Time Spent in Patient Care: Greater than 35 minutes (>than 50% of time spent in counselling and/or direct pt care on unit) . Coding Level of Care Code Acute Office Supervisor for Justin Singletond Diagnoses Suicidal ideation R45.851 Bipolar disorder, unspecified F31.9 Alcohol dependence, uncomplicated F10.20
[2020-11-01] MEDS: sertraline 50 mg Tablet PO (13:08)
[2020-11-01 13:56] VITALS: BP 111/70; PULSE 75; RESP 18; TEMP 36.8; O2SAT 97
[2020-11-01 20:07] VITALS: BP 134/91; PULSE 78; RESP 17; TEMP 37; O2SAT 97
[2020-11-01] MEDS: OLANZapine 10 mg TABLET 20 MG PO (20:40)
[2020-11-02 06:00] VITALS: BP 105/62; PULSE 52; RESP 15; TEMP 36.8; O2SAT 95
[2020-11-02] MEDS: multivitamin therapeutic Tablet 1 TAB PO (08:46)
[2020-11-02] MEDS: thiamine 100 mg Tablet PO (08:46)
[2020-11-02] MEDS: folic acid 1 mg Tablet PO (08:47)
[2020-11-02] MEDS: sertraline 50 mg Tablet PO (08:47)
--- NOTE | 2020-11-02 13:12 | P.PN_ITS ---
Subjective NPU Subjective: Interval history: Reports some improvement but continues to report significant depression, denies any interval suicidal ideation Denies any alcohol withdrawal but reports feeling tired Reports improving appetite States that his sleep is fair, feels tired Reports being compliant with medication, denies any medication side effects Denies any interval psychotic symptoms No reported interval behavioral disturbances Mental Status Exam MSE Comments: Sitting in day room, unshaven, unkempt, tired appearing, calm, cooperative, fair eye contact Psychomotor activity is decreased, no agitation Speech is somewhat low volume, slow, spontaneous, fair articulation, not pressured I feel depressed, a little better, constricted, not labile Alert and oriented to person, place, time, situation Memory and concentration appear to be fair at best per interview Intellectual functioning appears to be average at best based on vocabulary, interview Thought process, linear but brief, no flight of ideas, no looseness of associations Thought content, no delusions, does not appear to be attending to any internal stimuli, no suicidal or homicidal ideation Insight and judgment appear to be fair Vitals/I&O/Wt Last Vital Signs Temp 98.3 F 11/02/20 06:00 Pulse 52 L 11/02/20 06:00 Resp 15 11/02/20 06:00 BP 105/62 11/02/20 06:00 Pulse Ox 95 11/02/20 06:00 Weight last 48 hrs Weight 72.575 kg Weight 72.575 kg Data NPU : 10/31/20 21:00 10/31/20 21:00 A&P Assessment and plan (1) Suicidal ideation: Status: Acute (2) Bipolar disorder, unspecified: Status: Acute (3) Alcohol dependence, uncomplicated: Status: Acute Additional A&P Information Patient continues to report depressive symptoms with some improvement, feels tired, hung over, denies any active withdrawal symptoms. Would likely benefit from increase in dosage of sertraline targeting depressive symptoms. INCREASE to sertraline 100 mg daily targeting depressive symptoms CONTINUE other medication, continue to monitor Involuntary Hold Information 96 Hour Hold: 96 Hour Involuntary Admission: Yes 96 Hour Hold Ending Date: 10/31/20 96 Hour Hold Ending Time: 23:00 Attestations NPU Medical Necessity Statement*: Patient requires psychiatric hospitalization for medication stabilization as well as coordination for safe discharge including post discharge follow-up Coding Level of Care Code Acute Caustic Strength Inspector for Chg Fwd Diagnoses Suicidal ideation R45.851 Bipolar disorder, unspecified F31.9 Alcohol dependence, uncomplicated F10.20
[2020-11-02 13:23] VITALS: BP 133/50; PULSE 102; RESP 18; TEMP 36.9
--- NOTE | 2020-11-02 19:57 | PC.NURSE ---
PACING HALLWAY, DENIES WANTING TO HARM SELF OR OTHERS. APPEARS SAD/WITHDRAWN. SAYS BACK ALWAYS HURTS, NO SPECIFIC REASON.
[2020-11-02 19:58] VITALS: BP 126/81; PULSE 77; RESP 17; TEMP 36.8; O2SAT 97
[2020-11-02] MEDS: OLANZapine 10 mg TABLET 20 MG PO (20:00)
[2020-11-02] MEDS: acetaminophen 325 mg Tablet 650 MG PO (20:00)
[2020-11-02] MEDS: hyDROXYzine 25 mg Capsule 50 MG PO (20:00)
[2020-11-02] MEDS: trazodone 50 mg Tablet PO (20:00)
[2020-11-03 06:00] VITALS: BP 106/64; PULSE 57; RESP 15; TEMP 36.3; O2SAT 94
[2020-11-03] MEDS: thiamine 100 mg Tablet PO (08:33)
[2020-11-03] MEDS: multivitamin therapeutic Tablet 1 TAB PO (08:33)
[2020-11-03] MEDS: sertraline 100 mg Tablet PO (08:33)
[2020-11-03] MEDS: folic acid 1 mg Tablet PO (08:33)
--- NOTE | 2020-11-03 11:19 | P.DS_ITS ---
Diagnoses at Discharge Discharge Diagnosis (1) Suicidal ideation: Status: Acute (2) Bipolar disorder, unspecified: Status: Acute (3) Alcohol dependence, uncomplicated: Status: Acute Reason for Visit Reason for Visit: si Hospital Course Hospital Course 45 year old male well-known to this unit in emergency department with history of bipolar disorder, methamphetamine abuse, cannabis abuse, alcohol abuse presented to the emergency department intoxicated with alcohol with suicidal and homicidal ideation. Patient reported multiple ongoing stressors exacerbating the symptoms but denied suicidal ideation and homicidal ideation at the time of initial evaluation on the inpatient psychiatry unit. He denied any alcohol withdrawal symptoms but does report recent alcohol and methamphetamine use. Patient denies pursuing any post discharge substance treatment after last psychiatric h ospitalization. Patient was restarted on home medications as well as [facility] protocol to monitor for any alcohol withdrawal symptoms which he tolerated well. Patient continued report some depressive symptoms in the context of ongoing stressors and his sertraline was titrated up to sertraline 100 mg daily which he tolerated well with no reports of any medication side effects. Patient participate in unit milieu with no reports of any behavioral disturbances. Patient also did not demonstrate any psychotic behavior or endorse any psychotic symptoms during this hospitalization. Patient was not suicidal or homicidal at the time of discharge and did not appear to pose an imminent threat of harm to self or others. Low to moderate risk of harm to self and others given no current suicidal or homicidal ideation and no recent demonstration of harm to self or violence towards others as well as no current psychiatric symptoms although patient's risk may be elevated if he continues to abuse alcohol and illicit substances and is noncompliant with his medication medication management follow-up leading to unexpected, impulsive behavior. Risk mitigation included psychiatric hospitalization for observation for return of any suicidal or homicidal ideation; recommendation to abstain from the use of substances and alcohol; as well as medication stabilization and coordination for safe discharge to include post discharge psychiatric follow-up. Patient was able to communicate his understanding of the above recommendation to abstain from the use of alcohol and substances as well as the need for compliance with his medication, medication management substance counseling in order to further mitigate his risk of harm to self and others. Patient was also able to communicate his safety plan of ca lling 911 or return to the emergency department if he had any return of suicidal or homicidal ideation. Involuntary Hold Information 96 Hour Hold: 96 Hour Involuntary Admission: Yes 96 Hour Hold Ending Date: 10/31/20 96 Hour Hold Ending Time: 23:00 Mental Status Exam MSE Comments: Tired appearing, appears stated age, appropriately groomed and dressed, calm, cooperative, interactive, good eye contact Psychomotor activity is neither increased nor decreased, no agitation Speech is normal rate and volume, spontaneous, fair articulation, not pressured I feel much better, full range, not labile Alert and oriented to person, place, time, situation Memory and concentration appear to be intact per interview Thought process, linear, no flight of ideas, no looseness of associations Thought content, no delusions, no hallucinations, no suicidal homicidal ideation Insight and judgment appear to be fair to intact Discharge Data Vitals: Last Vital Signs Temp 97.3 F L 11/03/20 06:00 Pulse 57 L 11/03/20 06:00 Resp 15 11/03/20 06:00 BP 106/64 11/03/20 06:00 Pulse Ox 94 11/03/20 06:00 Discharge Plan Discharge Patient Disposition: Home Condition: Stable Prescriptions: New multivitamin with folic acid [Thera] 400 mcg Tablet 1 tab PO DAILY Qty: 0 RF: 0 olanzapine 10 mg Tablet 20 mg PO BEDTIME Qty: 0 RF: 0 sertraline 100 mg Tablet 100 mg PO DAILY Qty: 30 RF: 0 No Action No Known Home Medications RF: 0 Discharge Orders: Discharge Order (Routine); Ordered 11/03/20 Ordered By: Melodie Harris Referrals: Marcela Guy PMHNP [Staff Physician] - 11/19/20 11:00 am (Hospital follow up) Discharge Diet: Regular Discharge Activity: Resume usual activity Discharge Attestations NPU Time Spent in Discharge Care*: greater than 30 min Status at Discharge: Cognitive status at discharge: cognitively intact , Behavioral status at discharge: cooperative , Functional status at discharge: independent ambulation Overall status at discharge: patient is back to baseline Coding Level of Care Code Acute Cloth Mercerizer Operator for greg Fwd Diagnoses Suicidal ideation R45.851 Bipolar disorder, unspecified F31.9 Alcohol dependence, uncomplicated F10.20
[2020-11-03 11:32] VITALS: BP 106/64; PULSE 57; RESP 15; TEMP 36.3; O2SAT 94
[2020-11-03 11:34] VITALS: BP 106/64; PULSE 57; RESP 15; TEMP 36.3; O2SAT 94
--- NOTE | 2020-11-04 09:37 | PC.RESP ---
SMOKING CESSATION INFORMATION SENT TO PATIENT.
== END 2020-11-03 12:19 | disposition home or self-care (01) | DRG 885 ==
LOC: ER 19:57 → NP 23:26
PROVIDERS: Admitting Provider Psychiatry & Neurology Psychiatry; Emergency Provider Emergency Medicine; PCP Family Medicine; Visit Provider Psychiatry & Neurology Psychiatry
DX: F31.9 Bipolar disorder, unspecified (principal); R45.851 Suicidal ideations; F10.229 Alcohol dependence with intoxication, unspecified; F15.10 Other stimulant abuse, uncomplicated; F12.10 Cannabis abuse, uncomplicated; R45.850 Homicidal ideations; F41.9 Anxiety disorder, unspecified; F17.210 Nicotine dependence, cigarettes, uncomplicated
CPT/HCPCS: 12345; 80053; 80306; 80307; 81003; 85025; 96372; 99284; J1200; J1630; J2060

== ENCOUNTER 2020-11-12 02:32 | Emergency (ER) | payer MEDICAID, SELFPAY ==
[2020-11-12 02:33] VITALS: BP 147/86; PULSE 84; RESP 18; O2SAT 97; BMI 26.6
--- NOTE | 2020-11-12 02:36 | ED_ITS ---
HPI - Back Pain/Injury General: Chief Complaint: Back Pain/Injury Stated Complaint: BACK PAIN Time Seen by Provider: 11/12/20 02:34 Source: patient and EMS Mode of arrival: EMS Limitations: no limitations History of Present Illness: HPI Narrative: 45-year-old male with a history of chronic back pain that he has had for years. Patient states that he is having left-sided back pain that is worsening currently rates it a 7 out of 10. Denies any bowel or bladder incontinence. Patient states he is also been drinking alcohol as well. MD elicited complaint: back pain Associated symptoms: Deny abdominal pain, chills, dysuria, fever(s), nausea or vomiting Review of Systems Const: Denies: fever(s), chills, body aches or change in appetite Eyes: Denies: blurry vision or eye discomfort ENMT: Denies: throat pain or dental pain Card: Denies: chest pain Resp: Denies: dyspnea GI: Denies: abdominal pain, nausea, vomiting or diarrhea : Denies: dysuria Musc: Reports: back pain Skin/Breast: Denies: rash Neuro: Denies: headache(s) Psych: Denies: depression Stanton/Lymph: Denies: easy bruising All/Imm: Denies: urticaria PFSH ED PFSH: Medical History (Updated 11/12/20 @ 02:45 by Romario Ahmadi MD) Alcohol dependence, in remission Alcohol dependence, uncomplicated Bipolar disorder, current episode mixed, severe, with psychotic features Nicotine dependence, cigarettes, uncomplicated Other stimulant dependence, in remission Social History Smoking and tobacco status: current every day smoker cigarettes Packs smoked per day: 1 Smoking risk assessment/counseling performed?: Yes Tobacco counseling given: counseling >3 minutes Physical Exam Const: COMMON NORMALS: no acute distress, patient oriented x3 and healthy appearing HENMT: COMMON NORMALS: normocephalic and atraumatic HEAD & SCALP: normocephalic and atraumatic Eye: COMMON NORMALS: Equal, round and reactive pupils present and EOMs intact bilaterally PUPIL: Yes Equal, round and reactive pupils present Neck/C-Spine: COMMON NORMALS: full ROM and supple Chest: COMMONS NORMALS: normal inspection of the chest and normal palpation of entire chest wall Resp: COMMON NORMALS: normal respiratory effort, No retractions, No use of accessory muscles and clear to auscultation bilaterally AUSCULTATION: clear to auscultation bilaterally Cardio: COMMON NORMALS: regular rate, regular rhythm and No murmurs present (Cardio) RATE: regular rate RHYTHM: regular rhythm GI: COMMON NORMALS: Normal to inspection, nondistended, normoactive bowel sounds present, Soft to palpation, non-tender and no masses PALPATION: Yes Soft to palpation Back/Pelvis: OTHER: Tender over left lower back with no midline tenderness pat ient was able ambulate has no saddle anesthesia. Extremity: COMMON NORMALS: normal to inspection and full ROM Neuro: COMMON NORMALS: patient oriented x3, moves all extremities and no focal motor deficits Psych: COMMON NORMALS: mental status grossly normal, Normal thought process present and cooperative THOUGHT PROCESS: Normal thought process present Skin: COMMON NORMALS: no rashes or lesions noted and no wounds GENERAL SKIN EXAM: no rashes or lesions noted Course Vital Signs: Vital signs: Vital Signs Pulse Rate 84 11/12/20 02:33 Respiratory Rate 18 11/12/20 02:33 Blood Pressure 147/86 11/12/20 02:33 Pulse Oximetry 97 11/12/20 02:33 MDM - Back Pain/Injury MDM Narrative: Medical decision making narrative: Rob presents with back pain is chronic in nature. Exam is benign he has no signs of cord compression or epidural abscess. We will place him on Naprosyn and Robaxin and he is stable for discharge. Discharge Plan Discharge Patient Disposition: Home Clinical Impression: Low back pain Qualifiers: Chronicity: chronic Back pain laterality: left Sciatica presence: without sciatica Qualified Code(s): M54.5 - Low back pain Condition: Stable Prescriptions: New Robaxin-750 750 mg tablet 750 mg PO Q6H Qty: 30 RF: 0 Naprosyn 500 mg tablet 500 mg PO BID PRN (Reason: pain) Qty: 20 RF: 0 No Action sertraline 100 mg Tablet 100 mg PO DAILY Qty: 30 RF: 0 olanzapine 10 mg Tablet 20 mg PO BEDTIME Qty: 0 RF: 0 Thera 400 mcg Tablet 1 tab PO DAILY Qty: 0 RF: 0 Discharge Orders: Discharge ED (Routine); Ordered 11/12/20 Ordered By: Romario Ahmadi Referrals: Caesar Garcia MD [Primary Care Provider] - 1-3 days Discharge Diet: Advance as tolerated Discharge Activity: Resume usual activity Patient Instructions: Back Pain (ED) Coding Level of Care Code ED Patrol Sergeant for Shirleyg Fwd Exam Comprehensive
[2020-11-12] MEDS: ketorolac 30 mg/mL INJ IM (02:43)
[2020-11-12] MEDS: dexamethasone 10 mg/mL INJ IM (02:43)
== END 2020-11-12 03:01 | disposition home or self-care (01) ==
PROVIDERS: Emergency Provider Emergency Medicine; PCP Family Medicine
DX: M54.5 Low back pain (principal); F17.210 Nicotine dependence, cigarettes, uncomplicated
CPT/HCPCS: 12345; 96372; 99281; 99283; J1100; J1885

== ENCOUNTER 2020-11-18 17:27 | Emergency (ER) | payer MEDICAID, SELFPAY ==
[2020-11-18] VITALS (9 sets, daily range): BP systolic 136–210; BP diastolic 74–120; PULSE 68–120; RESP 14–18; TEMP 36.7; O2SAT 94–100; BMI 25.7
--- NOTE | 2020-11-18 18:22 | W.ED.PSYCH ---
HPI - Psych General: Chief Complaint: Psychiatric Symptoms Stated Complaint: MHE Time Seen by Provider: 11/18/20 18:07 History of Present Illness: HPI Narrative: Patient is intoxicated and makes a statement he wants a f....... . Says his back hurts says he cannot take anymore says he needs help. Does not have a plan MD complaint: suicidal ideation and feels depressed Onset (ago): day(s) Duration: constant History of same: Yes Relieving factors: none Context: recent alcohol abuse Associated symptoms: Reports depression and suicidal ideation If self harm: admits thoughts of self harm Review of Systems Const: Denies: fever(s), chills or body aches Eyes: Denies: change in vision or blurry vision ENMT: Denies: throat pain or nasal congestion Card: Denies: chest pain or dyspnea on exertion Resp: Denies: dyspnea, productive cough or non-productive cough GI: Denies: abdominal pain, nausea or vomiting : Denies: difficulty urinating Musc: Denies: extremity pain Skin/Breast: Denies: rash Neuro: Denies: headache(s) Psych: Reports: depression, suicidal ideation and other (Alcohol abuse) Stanton/Lymph: Denies: easy bruising PFSH ED PFSH: Medical History (Updated 11/18/20 @ 21:47 by PEDRO Medina) Alcohol dependence, in remission Alcohol dependence, uncomplicated Bipolar disorder, current episode mixed, severe, with psychotic features Nicotine dependence, cigarettes, uncomplicated Other stimulant dependence, in remission Social History Smoking and tobacco status: current every day smoker cigarettes Packs smoked per day: 1 Smoking risk assessment/counseling performed?: Yes Tobacco counseling given: counseling >3 minutes Physical Exam Const: COMMON NORMALS: no acute distress, average body habitus and patient oriented x3 HENMT: COMMON NORMALS: normocephalic HEAD & SCALP: normal to inspection and normocephalic FACE & SINUS: normal facial exam Eye: COMMON NORMALS: conjunctivae normal GENERAL EYE: appearance normal, both eyes and all related structures CONJUNCTIVA: Yes conjunctivae normal Neck/C-Spine: COMMON NORMALS: no JVD Chest: COMMONS NORMALS: normal inspection of the chest Resp: COMMON NORMALS: normal respiratory effort and clear to auscultation bilaterally AUSCULTATION: clear to auscultation bilaterally Cardio: COMMON NORMALS: no JVD, regular rate and regular rhythm RATE: regular rate RHYTHM: regular rhythm GI: COMMON NORMALS: Normal to inspection, nondistended, normoactive bowel sounds present Extremity: COMMON NORMALS: normal to inspection and full ROM Neuro: COMMON NORMALS: patient oriented x3 Psych: APPEARANCE: Yes unkempt ATTITUDE: Yes Withdrawn affect present and Yes agitated ACTIVITY/MOTOR BEHAVIOR: Yes Avoids eye contact (attititude/behavior) SPEECH: Yes slurred MOOD & AFFECT: Yes irritable and Yes tearful THOUGHT PROCESS: incoherent MDM - Psych MDM Narrative: Medical decision making narrative: I spoke with Dr. Navas he will do a telehealth psych eval with Rob. Rob has said he is not suicidal he said he was just drinking too much and made some comments but he is not want to take his life. Dr. Navas says patient has him follow-up in [facility] tomorrow that patient agrees to keep. Patient is good about keeping those appointments. Discussed case Dr. Ahmadi. Lab Data: Labs: Lab Results 11/18/20 11/18/20 Range/Units 18:40 18:40 WBC 9.6 (4.0-10.0) 10^3/ uL RBC 4.60 (4.1-5.3) 10^6/u L Hgb 15.4 (11.7-16.6) g/dL Hct 46.1 (42.0-52.0) % MCV 100.2 H (80-94) fL MCH 33.5 (28.0-34.0) pg MCHC 33.4 (30.0-36.0) g/dL RDW 12.5 (12.1-15.1) % Plt Count 260 (130-400) 10^3/c mm MPV 10.1 (7.4-10.4) fL Neut % (Auto) 27.4 % Lymph % (Auto) 56.6 % [place] % (Auto) 7.9 % Eos % (Auto) 7.0 % Baso % (Auto) 0.8 % Neut # (Auto) 2.64 (1.8-7.7) 10^3/u L Lymph # (Auto) 5.5 H (0.8-4.8) 10^3/u L [place] # (Auto) 0.8 (0.2-0.9) 10^3/u L Eos # (Auto) 0.7 (0.0-0.8) 10^3/u L Baso # (Auto) 0.1 (0.0-0.1) 10^3/u L Nucleated RBC % (a uto) 0 % Nucleated RBCs # 0.0 /100WBC Sodium 141 (136-145) mmol/L Potassium 4.2 (3.5-5.1) mmol/L Chloride 104 (98-107) mmol/L Carbon Dioxide 23 (22-29) mmol/L Anion Gap 18.2 (5-19) BUN 13 (6-20) mg/dL Creatinine 0.6 L (0.7-1.2) mg/dL GFR Calculation 145.0 H (90-130) mL/min Glucose 109 (65-115) mg/dL Calculated Osmolal ity 293 (285-295) mOsm/k g Calcium 9.3 (8.5-10.5) mg/dL Total Bilirubin 0.2 (0.15-1.2) mg/dL AST 63 H (0-40) U/L ALT 79 H (0-41) U/L Alkaline Phosphata se 87 (40-130) IU/L Total Protein 7.9 (6.6-8.7) g/dL Albumin 4.4 (3.5-5.2) g/dL Globulin 3.5 (1.3-4.6) g/dL Salicylates < 0.3 L (3-10) mg/dL Acetaminophen < 5.0 L (10-30) ug/mL Ethyl Alcohol 217 H (0-10) mg/dL Discharge Plan Discharge Patient Disposition: Home Clinical Impression: Alcohol intoxication Qualifiers: Complication of substance-induced condition: uncomplicated Qualified Code(s): F10.920 - Alcohol use, unspecified with intoxication, uncomplicated Condition: Stable Prescriptions: No Action sertraline 100 mg Tablet 100 mg PO DAILY Qty: 30 RF: 0 olanzapine 10 mg Tablet 20 mg PO BEDTIME Qty: 0 RF: 0 multivitamin with folic acid [Thera] 400 mcg Tablet 1 tab PO DAILY Qty: 0 RF: 0 methocarbamol [Robaxin-750] 750 mg tablet 750 mg PO Q6H Qty: 30 RF: 0 naproxen [Naprosyn] 500 mg tablet 500 mg PO BID PRN (Reason: pain) Qty: 20 RF: 0 Discharge Orders: Discharge ED (Routine); Ordered 11/18/20 Ordered By: Mikael Taylor Discharge Diet: Usual diet Discharge Activity: Resume usual activity Patient Instructions: Abuse of Alcohol (ED) Activity Restrictions/Additional Instructions: Keep appointment with your behavioral health clinic appointment tomorrow. Decrease alcohol intake. Follow-up with your family medical provider as directed. Coding Level of Care Code ED Manager Sharepoint for Chg Fwd Exam Comprehensive
[2020-11-18 19:02] LABS: Basophils # 0.1 10^3/uL (0.0-0.1); Basophils % 0.8 %; Eosinophils # 0.7 10^3/uL (0.0-0.8); Hematocrit 46.1 % (42.0-52.0); Hemoglobin 15.4 g/dL (11.7-16.6); Lymphocytes # 5.5 10^3/uL (0.8-4.8); Lymphocytes % 56.6 %; Mean Corpuscular HGB Conc 33.4 g/dL (30.0-36.0); Mean Corpuscular Hemoglobin 33.5 pg (28.0-34.0); Mean Corpuscular Volume 100.2 fL (80-94); Mean Platelet Volume 10.1 fL (7.4-10.4); Monocytes # 0.8 10^3/uL (0.2-0.9); Monocytes % 7.9 %; Neutrophils # 2.64 10^3/uL (1.8-7.7); Neutrophils % 27.4 %; Nucleated Red Blood Cells % 0 %; Platelet Count 260 10^3/cmm (130-400); Red Cell Distribution Width 12.5 % (12.1-15.1); White Blood Count 9.6 10^3/uL (4.0-10.0)
[2020-11-18 19:25] LABS: Alanine Aminotransferase 79 U/L (0-41); Albumin Level 4.4 g/dL (3.5-5.2); Alcohol Level 217 mg/dL (0-10); Alkaline Phosphatase 87 IU/L (40-130); Aspartate Amino Transferase 63 U/L (0-40); Blood Urea Nitrogen 13 mg/dL (6-20); Calcium 9.3 mg/dL (8.5-10.5); Carbon Dioxide 23 mmol/L (22-29); Chloride 104 mmol/L (98-107); Globulin 3.5 g/dL (1.3-4.6); Glucose 109 mg/dL (65-115); Osmolality Calculated 293 mOsm/kg (285-295); Sodium 141 mmol/L (136-145); Total Bilirubin 0.2 mg/dL (0.15-1.2); Total Protein 7.9 g/dL (6.6-8.7)
[2020-11-18 19:34] LABS: Acetaminophen < 5.0 ug/mL (10-30); Salicylate < 0.3 mg/dL (3-10)
[2020-11-18 19:35] LABS: Anion Gap 18.2 (5-19); Potassium 4.2 mmol/L (3.5-5.1)
[2020-11-18 19:57] LABS: Slide Review Slide Review Perform
--- NOTE | 2020-11-18 20:48 | PC.PHAR ---
I TRIED SPEAKING TO THE PT ABOUT HIS MEDICATIONS, BUT HE WAS UNABLE TO ANSWER ANY OF MY QUESTIONS. I JUST WENT BY HIS MED HISTORY AND PHARMACY LIST.
[2020-11-18 22:36] LABS: Alcohol Level 134 mg/dL (0-10)
--- NOTE | 2020-11-18 23:21 | PC.NURSE ---
PT awake requesting restraints to remain on at this time
--- NOTE | 2020-11-18 23:22 | PC.NURSE ---
Pt cooperative. Restraints removed
--- NOTE | 2020-11-19 00:06 | PC.NURSE ---
Resting quietly in VF at this time with eyes closed.
--- NOTE | 2020-11-19 01:00 | PC.NURSE ---
Pt resting quietly with eyes closed
--- NOTE | 2020-11-19 02:00 | PC.NURSE ---
Pt resting quietly. Denies any needs
--- NOTE | 2020-11-19 03:08 | PC.NURSE ---
Pt has left the ED at this time. Ambulatory in stable condition
== END 2020-11-19 03:09 | disposition home or self-care (01) ==
PROVIDERS: Emergency Provider Nurse Practitioner Family
DX: F10.920 Alcohol use, unspecified with intoxication, uncomplicated (principal); F17.210 Nicotine dependence, cigarettes, uncomplicated
CPT/HCPCS: 12345; 36415; 80053; 80307; 85025; 96372; 99284; J3490

== ENCOUNTER → 2020-11-19 08:08 | Outpatient (BNVA) | payer MEDICAID, SELFPAY | PROVIDERS: Visit Provider Nurse Practitioner | DX: F31.64 Bipolar disorder, current episode mixed, severe, with psychotic features (principal); F10.20 Alcohol dependence, uncomplicated; F15.21 Other stimulant dependence, in remission; F17.210 Nicotine dependence, cigarettes, uncomplicated | CPT/HCPCS: 99214 ==

== ENCOUNTER → 2020-12-24 07:31 | Outpatient (BNVA) | payer MEDICAID, SELFPAY | PROVIDERS: Referring Provider Psychiatry & Neurology Psychiatry; Visit Provider Nurse Practitioner | DX: F31.64 Bipolar disorder, current episode mixed, severe, with psychotic features (principal); F15.21 Other stimulant dependence, in remission; F10.20 Alcohol dependence, uncomplicated; F17.210 Nicotine dependence, cigarettes, uncomplicated | CPT/HCPCS: 99214 ==

== ENCOUNTER → 2021-01-26 09:20 | Outpatient (BNVA) | payer MEDICAID, SELFPAY | PROVIDERS: Visit Provider Nurse Practitioner | DX: F31.64 Bipolar disorder, current episode mixed, severe, with psychotic features (principal); F20.9 Schizophrenia, unspecified; F17.210 Nicotine dependence, cigarettes, uncomplicated; F10.20 Alcohol dependence, uncomplicated | CPT/HCPCS: 99214 ==

== ENCOUNTER 2021-02-13 14:28 | Emergency (ER) | payer MEDICAID, SELFPAY ==
[2021-02-13 14:39] VITALS: BP 133/96; PULSE 88; RESP 18; TEMP 36.8; O2SAT 96; BMI 26.0
--- NOTE | 2021-02-13 14:55 | PC.NURSE ---
pt refuses wheelchair or assistance walking to a chair. pt educated on the risk of a fall.
--- NOTE | 2021-02-13 15:27 | W.ED.BACK ---
HPI - Back Pain/Injury General: Chief Complaint: Back Pain/Injury Stated Complaint: BACK INJURY/PAIN Time Seen by Provider: 02/13/21 15:25 History of Present Illness: HPI Narrative: Patient is a 45-year-old male comes to the ED with chronic back pain. Patient says he is having back pain all over and the pain radiates down into his left leg. Denies any recent injury or trauma to cause acute back pain. Patient says he has arthritis all over his body. Patient sees pain management and has an appointment within the next month. Denies any other symptoms. Associated symptoms: Deny abdominal pain, chills, dysuria, fatigue, fever(s), hematuria, nausea or vomiting Review of Systems Const: Denies: fever(s), chills or fatigue Eyes: Denies: change in vision or eye discomfort ENMT: Denies: throat pain, odynophagia, nasal discharge or nasal congestion Card: Denies: chest pain, palpitations, edema, swelling of feet/ankles, dyspnea on exertion or orthopnea Resp: Denies: dyspnea, productive cough or non-productive cough GI: Denies: abdominal pain, nausea, vomiting, diarrhea, constipation or hematochezia : Denies: flank pain, difficulty urinating, dysuria or hematuria Musc: Reports: back pain (Lower back pain with pain going down left leg.); Denies: neck pain or extremity swelling Skin/Breast: Denies: rash or new lesions Neuro: Denies: headache(s), numbness in extremities or weakness in extremities PFS ED PFSH: Medical History Alcohol dependence, in remission Alcohol dependence, uncomplicated Bipolar disorder, current episode mixed, severe, with psychotic features Nicotine dependence, cigarettes, uncomplicated Other stimulant dependence, in remission Social History Smoking and tobacco status: current every day smoker cigarettes Packs smoked per day: 1 Smoking risk assessment/counseling performed?: Yes Tobacco counseling given: counseling >3 minutes Physical Exam Const: COMMON NORMALS: patient oriented x3 HENMT: COMMON NORMALS: normocephalic HEAD & SCALP: normocephalic MOUTH: Normal oral and palatal mucosa present THROAT: posterior oropharynx normal and uvula midline Neck/C-Spine: COMMON NORMALS: supple GENERAL: Yes normal visual inspection Resp: COMMON NORMALS: normal respiratory effort, No retractions, No use of accessory muscles and clear to auscultation bilaterally AUSCULTATION: clear to auscultation bilaterally Cardio: COMMON NORMALS: regular rate, regular rhythm, S1 normal heart sound present, S2 normal heart sound present, No gallops present (Cardio), No clicks present (Cardio), No murmurs present (Cardio) and Peripheral pulses 2+ throughout RATE: regular rate RHYTHM: regular rhythm HEART SOUNDS: S1 normal heart sound present and S2 normal heart sound present PERIPHERAL PULSES: Peripheral pulses 2+ throughout GI: COMMON NORMALS: Normal to inspection, nondistended, normoactive bowel sounds present, Soft to palpation, non-tender and no masses PALPATION: Yes Soft to palpation : COMMON NORMALS: Yes no CVA tenderness BLADDER/KIDNEY EXAM: Yes no CVA tenderness Back/Pelvis: COMMON NORMALS: no CVA tenderness LUMBAR SPINE/LOWER BACK: Yes pain with ROM and Yes paraspinal muscle tenderness Lumbar paraspinal muscle tenderness: left Extremity: COMMON NORMALS: normal to inspection Neuro: COMMON NORMALS: patient oriented x3 and moves all extremities Skin: GENERAL SKIN EXAM: dry skin Course Vital Signs: Vital signs: Vital Signs Temperature 98.2 F 02/13/21 14:39 Pulse Rate 85 02/13/21 15:33 Respiratory Rate 16 02/13/21 15:33 Blood Pressure 127/91 02/13/21 15:33 Pulse Oximetry 97 02/13/21 15:33 MDM - Back Pain/Injury MDM Narrative: Medical decision making narrative: Patient is a 45-year-old male comes to the ED with chronic back pain. Denies any acute injury or trauma to cause pain. Patient has no signs of cauda equina. Patient has some lumbar para spinal muscle tenderness but rest of exam benign. Patient be discharged home with a prescription for meloxicam, Medrol Dosepak and methocarbamol. Patient was told to follow-up with pain management at next scheduled appointment. Return to ED precautions given. Patient understood and agree with plan Discharge Plan Discharge Patient Disposition: Home Clinical Impression: Lumbar radiculopathy Condition: Stable Prescriptions: New Medrol (Isiah) 4 mg tablets,dose pack See Rx Instructions .ROUTE .COMPLEX Qty: 21 RF: 0 meloxicam 15 mg tablet 15 mg PO DAILY PRN (Reason: pain) Qty: 30 RF: 0 methocarbamol 750 mg tablet 750 mg PO Q8H Qty: 20 RF: 0 No Action duloxetine [Cymbalta] 60 mg capsule,delayed release(DR/EC) 60 mg PO DAILY Qty: 60 RF: 1 olanzapine 10 mg tablet 20 mg PO BEDTIME Qty: 60 RF: 1 multivitamin with folic acid [Thera] 400 mcg Tablet 1 tab PO DAILY Qty: 0 RF: 0 methocarbamol [Robaxin-750] 750 mg tablet 750 mg PO Q6H Qty: 30 RF: 0 naproxen [Naprosyn] 500 mg tablet 500 mg PO BID PRN (Reason: pain) Qty: 20 RF: 0 Discharge Orders: Discharge ED (Routine); Ordered 02/13/21 Ordered By: Daniel Woodard Discharge Diet: Regular Discharge Activity: Increase activity as tolerated Patient Instructions: Lumbar Radiculopathy (ED) Activity Restrictions/Additional Instructions: Follow-up with medical provider as directed in 7 to 10 days for reevaluation. Take medications as prescribed. Apply cold pack on sore area of back to help with symptoms. Stretch lower back daily. Return to the ER or your medical provider if condition worsens. Please read and understand discharge instructions. Thank you for choosing [facility] for your healthcare needs today. Please realize this is an emergency room and that we are providing you with a medical screening exam and this may not be complete and all inclusive of all the testing and or work up that you may need to determine your ailment or severity of your illness. It is very important that you follow up as instructed or that you return to the Emergency Department should you have concerns or if your condition changes or worsens in any way. Coding Level of Care Code ED Kitchen Utility Associate for Justin Sadler Exam Comprehensive
[2021-02-13 15:33] VITALS: BP 127/91; PULSE 85; RESP 16; O2SAT 97
[2021-02-13] MEDS: ketorolac 60 mg/2 mL INJ IM (15:54)
[2021-02-13] MEDS: dexamethasone 10 mg/mL INJ IM (15:54)
[2021-02-13 16:11] VITALS: BP 127/96; PULSE 84; RESP 16; O2SAT 96
== END 2021-02-13 16:13 | disposition home or self-care (01) ==
PROVIDERS: Emergency Provider Physician Assistant
DX: M54.16 Radiculopathy, lumbar region (principal); F17.210 Nicotine dependence, cigarettes, uncomplicated
CPT/HCPCS: 96372; 99283; J1100; J1885

== ENCOUNTER → 2021-02-20 11:23 | Outpatient (BNVA) | payer MEDICAID, SELFPAY | PROVIDERS: Visit Provider Nurse Practitioner | DX: F20.9 Schizophrenia, unspecified (principal); F31.64 Bipolar disorder, current episode mixed, severe, with psychotic features; F10.21 Alcohol dependence, in remission; F15.21 Other stimulant dependence, in remission; F17.210 Nicotine dependence, cigarettes, uncomplicated | CPT/HCPCS: 99214 ==

== ENCOUNTER 2021-02-21 22:31 | Emergency (ER) | payer MEDICAID, SELFPAY ==
[2021-02-21 22:35] VITALS: PULSE 78; RESP 18; TEMP 36.5; O2SAT 98; BMI 27.0
--- NOTE | 2021-02-21 22:48 | PC.NURSE ---
patient states to nurse during triage I do have a plan to kill myself but I am not going to tell you about it. when nurse asked patient if they were having active suicidal thoughts patient states I did yesterday. if this back pain doesn't get fixed I'll fix myself that way .
--- NOTE | 2021-02-21 22:50 | PC.NURSE ---
upon arrival to room patient states that I am not suicidal I'm just here for my back pain. Yeah I've been drinking tonight but my back just hurts, started last night, think I must have slept wrong on some sheets.
--- NOTE | 2021-02-21 23:06 | ED_ITS ---
HPI - Back Pain/Injury General: Chief Complaint: Back Pain/Injury Stated Complaint: side pain, back pain Time Seen by Provider: 02/21/21 23:04 History of Present Illness: HPI Narrative: Patient presents to the ER with a history of chronic back pain. He said his back is hurting again tonight. He has seen a specialist [place] and does go to pain clinic. Has drank 3-4 beers a day also. He like to have some medicine for his back pain. During triage he answered yes to his suicide screening questions. He told the charge nurse on evaluation room that he is not suicidal at all and in no way answer those questions awaited. I spoke to the patient he said he was suicidal maybe a couple months ago he is not currently suicidal and does not want to hurt himself and has no intention doing that he would just like his back pain treated. MD elicited complaint: back pain Pertinent past history: prior back pain Onset (ago): year(s) Timing: progressively worsening Severity: moderate Similar Symptoms Previously: Yes Quality: aching Location: lumbar spine Radiation: none Exacerbating factors: movement and walking Associated symptoms: Reports no associated symptoms; Deny abdominal pain, chills, fever(s), nausea or vomiting Review of Systems Const: Denies: fever(s), chills or body aches Eyes: Denies: change in vision or blurry vision ENMT: Denies: throat pain or nasal congestion Card: Denies: chest pain or dyspnea on exertion Resp: Denies: dyspnea, productive cough or non-productive cough GI: Denies: abdominal pain, nausea or vomiting : Denies: difficulty urinating Musc: Reports: back pain (Chronic); Denies: extremity pain Skin/Breast: Denies: rash Neuro: Denies: headache(s) Psych: Reports: suicidal ideation (2 months ago, not currently suicidal); Denies: anxiety or depression Stanton/Lymph: Denies: easy bruising PFSH ED PFSH: Medical History (Updated 02/21/21 @ 23:40 by PEDRO Medina) Alcohol dependence, in remission Alcohol dependence, uncomplicated Bipolar disorder, current episode mixed, severe, with psychotic features Nicotine dependence, cigarettes, uncomplicated Other stimulant dependence, in remission Social History Smoking and tobacco status: current every day smoker cigarettes Packs smoked per day: 1 Smoking risk assessment/counseling performed?: Yes Tobacco counseling given: counseling >3 minutes Physical Exam Const: COMMON NORMALS: no acute distress Back/Pelvis: THORACIC SPINE/UPPER BACK: Yes paraspinal muscle tenderness LUMBAR SPINE/LOWER BACK: Yes straight leg raise positive left Straight leg raise positive details left: at 30 degrees Psych: COMMON NORMALS: mental status grossly normal, Normal thought process present and speech normal APPEARANCE: Yes grossly normal ATTITUDE: Yes calm ACTIVITY/MOTOR BEHAVIOR: Yes appropriate eye contact SPEECH: Yes normal speech THOUGHT PROCESS: Normal thought process present THOUGHT CONTENT: Yes Normal thought content present ATTENTION/CONCENTRATION: Yes attention grossly intact MEMORY/COGNITION: Yes memory grossly intact INSIGHT: Good insight present (Psych) Course Vital Signs: Vital signs: Vital Signs Temperature 97.7 F 02/21/21 22:35 Pulse Rate 80 02/21/21 23:49 Respiratory Rate 16 02/21/21 23:49 Blood Pressure 128/89 02/21/21 23:49 Pulse Oximetry 95 02/21/21 23:49 MDM - Back Pain/Injury MDM Narrative: Medical decision making narrative: Discussed case with Dr. Celaya and Dr. Navas. Dr. Navas a telehealth visit with patient patient is not suicidal just here for chronic low back pain. Patient tolerated shots well and he said that took care of his pain is ready go home. Dr. Navas cleared patient to be discharged Discharge Plan Discharge Patient Disposition: Home Clinical Impression: Chronic back pain Qualifiers: Back pain location: low back pain Back pain laterality: midline Sciatica presence: without sciatica Qualified Code(s): M54.5 - Low back pain Condition: Stable Prescriptions: No Action trazodone 100 mg tablet 100 mg PO .HS Qty: 30 RF: 1 duloxetine [Cymbalta] 60 mg capsule,delayed release(DR/EC) 60 mg PO DAILY Qty: 60 RF: 1 olanzapine 10 mg tablet 20 mg PO BEDTIME Qty: 60 RF: 1 multivitamin with folic acid [Thera] 400 mcg Tablet 1 tab PO DAILY Qty: 0 RF: 0 Medrol (Isiah) 4 mg tablets,dose pack See Rx Instructions .ROUTE .COMPLEX Qty: 21 RF: 0 meloxicam 15 mg tablet 15 mg PO DAILY PRN (Reason: pain) Qty: 30 RF: 0 methocarbamol 750 mg tablet 750 mg PO Q8H Qty: 20 RF: 0 methocarbamol [Robaxin-750] 750 mg tablet 750 mg PO Q6H Qty: 30 RF: 0 naproxen [Naprosyn] 500 mg tablet 500 mg PO BID PRN (Reason: pain) Qty: 20 RF: 0 Discharge Orders: Discharge ED (Routine); Ordered 02/21/21 Ordered By: Mikael Taylor Discharge Diet: Usual diet Discharge Activity: Increase activity as tolerated Patient Instructions: Chronic Back Pain (ED) Activity Restrictions/Additional Instructions: Follow-up your primary care provider as directed. Make sure you do not do any lifting over 10 pounds for next few weeks. Keep mental health appointments as scheduled. Coding Level of Care Code ED Fish Processor for Justin Fwd Exam Expanded Problem Focused
[2021-02-21] MEDS: promethazine 25 mg/mL SDV 1 mL IM (23:24)
[2021-02-21] MEDS: ketorolac 60 mg/2 mL INJ IM (23:24)
[2021-02-21 23:43] VITALS: BP 128/89; PULSE 80; RESP 16; O2SAT 95
[2021-02-21 23:49] VITALS: BP 128/89; PULSE 80; RESP 16; O2SAT 95
== END 2021-02-21 23:52 | disposition home or self-care (01) ==
PROVIDERS: Emergency Provider Nurse Practitioner Family
DX: G89.29 Other chronic pain (principal); M54.5 Low back pain; F17.210 Nicotine dependence, cigarettes, uncomplicated
CPT/HCPCS: 96372; 99283; J1885; J2550

== ENCOUNTER → 2021-03-20 09:39 | Outpatient (BNVA) | payer MEDICAID, SELFPAY | PROVIDERS: Visit Provider Nurse Practitioner | DX: F31.9 Bipolar disorder, unspecified (principal); F20.9 Schizophrenia, unspecified; F17.210 Nicotine dependence, cigarettes, uncomplicated; F10.20 Alcohol dependence, uncomplicated; F15.21 Other stimulant dependence, in remission | CPT/HCPCS: 99214 ==

== ENCOUNTER 2021-04-09 18:01 | Emergency (ER) | payer MEDICAID, SELFPAY ==
[2021-04-09 18:16] VITALS: BP 118/76; PULSE 86; RESP 18; TEMP 37; O2SAT 94; BMI 27.1
--- NOTE | 2021-04-09 18:52 | W.ED.BACK ---
HPI - Back Pain/Injury General: Chief Complaint: Back Pain/Injury Stated Complaint: Lower Back Pain/L. Side Time Seen by Provider: 04/09/21 18:30 History of Present Illness: HPI Narrative: Patient is a 46-year-old male comes to the ED with acute on chronic lower back pain. He was seen here for same complaint on February 21, 2021. Patient states that last night he started develop pain more severe lower back pain that was mostly on the left side. Denies any acute trauma or injury to cause flareup of pain. Patient says he was working yesterday and he thinks that is what caused the flareup of his back pain. Denies any other symptoms. Back pain stays in the lower back and does not radiate down into the legs. Denies cauda equina symptoms. Associated symptoms: Deny abdominal pain, chills, dysuria, fatigue, fever(s), hematuria, nausea or vomiting Review of Systems Const: Denies: fever(s), chills or fatigue Eyes: Denies: change in vision or eye discomfort ENMT: Denies: throat pain, odynophagia, nasal discharge or nasal congestion Card: Denies: chest pain, palpitations, edema, swelling of feet/ankles, dyspnea on exertion or orthopnea Resp: Denies: dyspnea, productive cough or non-productive cough GI: Denies: abdominal pain, nausea, vomiting, diarrhea, constipation or hematochezia : Denies: flank pain, difficulty urinating, dysuria or hematuria Musc: Reports: back pain; Denies: neck pain or extremity swelling Skin/Breast: Denies: rash or new lesions Neuro: Denies: headache(s), numbness in extremities or weakness in extremities PFSH ED PFSH: Medical History Alcohol dependence, in remission Alcohol dependence, uncomplicated Bipolar disorder, current episode mixed, severe, with psychotic features Nicotine dependence, cigarettes, uncomplicated Other stimulant dependence, in remission Social History Smoking and tobacco status: current every day smoker cigarettes Packs smoked per day: 1 Smoking risk assessment/counseling performed?: Yes Tobacco counseling given: counseling >3 minutes Physical Exam Const: COMMON NORMALS: no acute distress, patient oriented x3 and alert GENERAL APPEARANCE: cooperative and comfortable HENMT: COMMON NORMALS: normocephalic HEAD & SCALP: normocephalic MOUTH: Normal oral and palatal mucosa present THROAT: posterior oropharynx normal and uvula midline Neck/C-Spine: COMMON NORMALS: supple GENERAL: Yes normal visual inspection Resp: COMMON NORMALS: normal respiratory effort, No retractions, No use of accessory muscles and clear to auscultation bilaterally AUSCULTATION: clear to auscultation bilaterally Cardio: COMMON NORMALS: regular rate, regular rhythm, S1 normal heart sound present, S2 normal heart sound present, No gallops present (Cardio), No clicks present (Cardio), No murmurs present (Cardio) and Peripheral pulses 2+ throughout RATE: regular rate RHYTHM: regular rhythm HEART SOUNDS: S1 normal heart sound present and S2 normal heart sound present PERIPHERAL PULSES: Peripheral pulses 2+ throughout GI: COMMON NORMALS: Normal to inspection, nondistended, normoactive bowel sounds present, Soft to palpation, non-tender and no masses PALPATION: Yes Soft to palpation : COMMON NORMALS: Yes no CVA tenderness BLADDER/KIDNEY EXAM: Yes no CVA tenderness Back/Pelvis: COMMON NORMALS: no CVA tenderness LUMBAR SPINE/LOWER BACK: Yes lumbar ROM normal, No pain with ROM and Yes paraspinal muscle tenderness Lumbar paraspinal muscle tenderness: left left lumbar paraspinal muscle tenderness: L1 and L2 Extremity: COMMON NORMALS: normal to inspection Neuro: COMMON NORMALS: patient oriented x3 and moves all extremities SENSORIUM/ORIENTATION: Yes alert Skin: GENERAL SKIN EXAM: dry skin Course Vital Signs: Vital signs: Vital Signs Temperature 98.6 F 04/09/21 18:16 Pulse Rate 77 04/09/21 19:02 Respiratory Rate 18 04/09/21 19:02 Blood Pressure 117/79 04/09/21 19:02 Pulse Oximetry 93 04/09/21 19:02 MDM - Back Pain/Injury MDM Narrative: Medical decision making narrative: Patient is a 46-year-old male comes to the ED with chronic back pain. He was seen here in the ED for same complaint back on February 21 and has been seen here many times before for same complaint. Denies any acute trauma or injury to cause worsening pain. Patient was given a dose of Toradol and Norflex while here in the ED. He was discharged home with some meloxicam and cyclobenzaprine. He has a appointment with his pain management clinic next week. Patient was diagnosed with chronic back pain and discharged home. Discharge Plan Discharge Patient Disposition: Home Clinical Impression: Chronic back pain Qualifiers: Back pain location: low back pain Back pain laterality: left Sciatica presence: without sciatica Qualified Code(s): M54.5 - Low back pain Condition: Stable Prescriptions: New cyclobenzaprine 10 mg tablet 10 mg PO BID PRN (Reason: muscle spasm) Qty: 15 RF: 0 meloxicam 15 mg tablet 15 mg PO DAILY Qty: 20 RF: 0 No Action trazodone 100 mg tablet 200 mg PO .HS Qty: 60 RF: 0 olanzapine 10 mg tablet 20 mg PO BEDTIME Qty: 60 RF: 0 duloxetine [Cymbalta] 60 mg capsule,delayed release(DR/EC) 60 mg PO DAILY Qty: 60 RF: 0 multivitamin with folic acid [Thera] 400 mcg Tablet 1 tab PO DAILY Qty: 0 RF: 0 Medrol (Isiah) 4 mg tablets,dose pack See Rx Instructions .ROUTE .COMPLEX Qty: 21 RF: 0 meloxicam 15 mg tablet 15 mg PO DAILY PRN (Reason: pain) Qty: 30 RF: 0 methocarbamol 750 mg tablet 750 mg PO Q8H Qty: 20 RF: 0 methocarbamol [Robaxin-750] 750 mg tablet 750 mg PO Q6H Qty: 30 RF: 0 naproxen [Naprosyn] 500 mg tablet 500 mg PO BID PRN (Reason: pain) Qty: 20 RF: 0 Discharge Orders: Discharge ED (Routine); Ordered 04/09/21 Ordered By: Daniel Woodard Discharge Diet: Regular Discharge Activity: Increase activity as tolerated Patient Instructions: Chronic Back Pain (ED) Activity Restrictions/Additional Instructions: Follow-up with medical provider as directed at your next scheduled appointment with pain specialist next week. Take medications as prescribed. Return to the ER or your medical provider if condition worsens. Please read and understand discharge instructions. Thank you for choosing [facility] for your healthcare needs today. Please realize this is an emergency room and that we are providing you with a medical screening exam and this may not be complete and all inclusive of all the testing and or work up that you may need to determine your ailment or severity of your illness. It is very important that you follow up as instructed or that you return to the Emergency Department should you have concerns or if your condition changes or worsens in any way. Coding Level of Care Code ED Detail Maker And Fitter for Justin Sadler Exam Comprehensive
[2021-04-09 19:02] VITALS: BP 117/79; PULSE 77; RESP 18; O2SAT 93
[2021-04-09] MEDS: ketorolac 60 mg/2 mL INJ IM (19:09)
[2021-04-09] MEDS: orphenadrine 30 mg/mL Inj 2 mL 60 MG IM (19:09)
[2021-04-09 19:39] VITALS: BP 122/91; PULSE 84; RESP 18; O2SAT 94
== END 2021-04-09 19:39 | disposition home or self-care (01) ==
PROVIDERS: Emergency Provider Physician Assistant
DX: G89.29 Other chronic pain (principal); M54.5 Low back pain; F17.210 Nicotine dependence, cigarettes, uncomplicated
CPT/HCPCS: 96372; 99283; J1885; J2360

== ENCOUNTER → 2021-04-16 08:15 | Outpatient (BNVA) | payer MEDICAID, SELFPAY | PROVIDERS: Visit Provider Nurse Practitioner | DX: F31.9 Bipolar disorder, unspecified (principal); F20.9 Schizophrenia, unspecified; F10.20 Alcohol dependence, uncomplicated; F15.21 Other stimulant dependence, in remission; F17.210 Nicotine dependence, cigarettes, uncomplicated | CPT/HCPCS: 99214 ==

== ENCOUNTER → 2021-07-08 07:38 | Outpatient (BNVA) | payer MEDICAID, SELFPAY | PROVIDERS: Visit Provider Nurse Practitioner | DX: F31.9 Bipolar disorder, unspecified (principal); F10.20 Alcohol dependence, uncomplicated; F15.21 Other stimulant dependence, in remission; F17.210 Nicotine dependence, cigarettes, uncomplicated | CPT/HCPCS: 99214 ==

== ENCOUNTER → 2021-07-22 10:58 | Outpatient (BNVA) | payer MEDICAID, SELFPAY | PROVIDERS: Visit Provider Internal Medicine | DX: B18.2 Chronic viral hepatitis C (principal) | CPT/HCPCS: 82105; 87902 ==

== ENCOUNTER 2021-08-12 18:29 | Emergency (ER) | payer MEDICAID, SELFPAY ==
[2021-08-12 18:34] VITALS: BP 136/91; PULSE 120; RESP 22; TEMP 36.7; O2SAT 93; BMI 26.4
--- NOTE | 2021-08-12 18:48 | W.ED.ALCOHOL ---
HPI - Alcohol General: Chief Complaint: Alcohol Stated Complaint: SI Time Seen by Provider: 08/12/21 18:36 Source: EMS Mode of arrival: EMS Limitations: altered mental status History of Present Illness: HPI narrative: 46-year-old male with a history of chronic alcoholism that is well-known to the ER. EMS states that they were called to his residence when they arrived all patient told them is that he been drinking heavily today. Asked him if he wanted to harm himself and he stated every day. He did not answer any other questions did not make any suicidal statements or any plan. Patient here is extremely intoxicated I am only able to get him to respond to stimuli he will answer any questions at this time due to his intoxication. Review of Systems General: Reports: ROS unobtainable due to mental status PFSH ED PFSH: Medical History Alcohol dependence, in remission Alcohol dependence, uncomplicated Bipolar disorder, current episode mixed, severe, with psychotic features Nicotine dependence, cigarettes, uncomplicated Other stimulant dependence, in remission Psychiatric care Social History Smoking and tobacco status: current every day smoker cigarettes Packs smoked per day: 1 Smoking risk assessment/counseling performed?: Yes Tobacco counseling given: counseling >3 minutes Physical Exam Const: COMMON NORMALS: negative for patient oriented x3 OTHER: Extremely intoxicated will respond to painful stimuli will not answer any questions HENMT: COMMON NORMALS: normocephalic and atraumatic HEAD & SCALP: normocephalic and atraumatic Eye: COMMON NORMALS: Equal, round and reactive pupils present and EOMs intact bilaterally PUPIL: Yes Equal, round and reactive pupils present Neck/C-Spine: COMMON NORMALS: full ROM and supple Chest: COMMONS NORMALS: normal inspection of the chest and normal palpation of entire chest wall Resp: COMMON NORMALS: normal respiratory effort, No retractions, No use of accessory muscles and clear to auscultation bilaterally AUSCULTATION: clear to auscultation bilaterally Cardio: COMMON NORMALS: regular rate, regular rhythm and No murmurs present (Cardio) RATE: regular rate RHYTHM: regular rhythm GI: COMMON NORMALS: Normal to inspection, nondistended, normoactive bowel sounds present, Soft to palpation, non-tender and no masses PALPATION: Yes Soft to palpation Extremity: COMMON NORMALS: normal to inspection and full ROM Neuro: COMMON NORMALS: moves all extremities and no focal motor deficits; negative for patient oriented x3 Psych: COMMON NORMALS: cooperative; negative for mental status grossly normal Skin: COMMON NORMALS: no rashes or lesions noted and no wounds GENERAL SKIN EXAM: no rashes or lesions noted Course Vital Signs: Vital signs: Vital Signs Temperature 98.0 F 08/12/21 18:34 Pulse Rate 87 08/13/21 03:17 Respiratory Rate 16 08/13/21 03:17 Blood Pressure 121/78 08/13/21 03:17 Pulse Oximetry 98 08/13/21 03:17 MDM - Alcohol MDM Narrative: Medical decision making narrative: Patient presents here with alcohol intoxication he is now awake and alert and able answer all my questions able to ambulate the halls and ate a sandwich. He adamantly denies being suicidal he never made any suicidal threats here is just was intoxicated when he arrived. He is stable for discharge he is not a threat to himself or others he is return if worsening he understands agrees to plan. Lab Data: Labs: Lab Results 08/12/21 08/12/21 08/12/21 18:50 18:50 21:30 WBC 7.2 10^3/uL 10^3/ uL (4.0-10.0) RBC 4.51 10^6/uL 10^6 /uL (4.1-5.3) Hgb 15.3 g/dL g/dL (11.7-16.6) Hct 43.3 % % (42.0-52.0) MCV 96.0 fl H fl (80-94) MCH 33.9 pg pg (28.0-34.0) MCHC 35.3 g/dL g/dL (30.0-36.0) RDW 11.1 % L % (12.1-15.1) Plt Count 223 10^3/cmm 10^3 /cmm (130-400) MPV 11.0 fL H fL (7.4-10.4) Neut % (Auto) 42.5 % % Lymph % (Auto) 43.9 % % [place] % (Auto) 7.5 % % Eos % (Auto) 4.9 % % Baso % (Auto) 1.1 % % Neut # (Auto) 3.05 10^3/uL 10^3 /uL (1.8-7.7) Lymph # (Auto) 3.2 10^3/uL 10^3/ uL (0.8-4.8) [place] # (Auto) 0.5 10^3/uL 10^3/ uL (0.2-0.9) Eos # (Auto) 0.4 10^3/uL 10^3/ uL (0.0-0.8) Baso # (Auto) 0.1 10^3/uL 10^3/ uL (0.0-0.1) Nucleated RBC % (a uto) 0 % % Nucleated RBCs # 0.0 /100WBC /100W BC Specimen Type Arterial Sample Site Radial, right ABG pH 7.32 L (7.35-7.45) ABG pCO2 44.9 mmHg mmHg (35-45) ABG pO2 83.0 mmHg mmHg (80.0-100.0) ABG HCO3 23.1 mmol/L mmol/ L (22-26) ABG Base Excess -3.2 mmol/L L mmo l/L (-2.0-2.0) Stephen Test Pos Hematocrit 46.8 % % (42-52) O2 Delivery Device Room air Civil Preparedness Coordinator ID Hinja Sodium 138 mmol/L mmol/L (136-145) Potassium 3.9 mmol/L mmol/L (3.5-5.1) Chloride 102 mmol/L mmol/L (98-107) Carbon Dioxide 22 mmol/L mmol/L (22-29) Anion Gap 17.9 (5-19) BUN 8 mg/dL mg/dL (6-20) Creatinine 0.5 mg/dL L mg/dL (0.7-1.2) GFR Calculation 178.2 mL/min H mL /min (90-130) Glucose 85 mg/dL mg/dL (65-115) Calculated Osmolal ity 284 mOsm/kg L mOs m/kg (285-295) Calcium 9.0 mg/dL mg/dL (8.5-10.5) Total Bilirubin 0.2 mg/dL mg/dL (0.15-1.2) AST 73 U/L H U/L (0-40) ALT 117 U/L H U/L (0-41) Alkaline Phosphata se 65 IU/L IU/L (40-130) Total Protein 7.6 g/dL g/dL (6.6-8.7) Albumin 4.3 g/dL g/dL (3.5-5.2) Globulin 3.3 g/dL g/dL (1.3-4.6) Salicylates < 0.3 mg/dL L mg/ dL (3-10) Acetaminophen < 5.0 ug/mL L ug/ mL (10-30) Ethyl Alcohol 267 mg/dL H mg/dL (0-10) 08/13/21 01:13 WBC RBC Hgb Hct MCV MCH MCHC RDW Plt Count MPV Neut % (Auto) Lymph % (Auto) [place] % (Auto) Eos % (Auto) Baso % (Auto) Neut # (Auto) Lymph # (Auto) [place] # (Auto) Eos # (Auto) Baso # (Auto) Nucleated RBC % (a uto) Nucleated RBCs # Specimen Type Sample Site ABG pH ABG pCO2 ABG pO2 ABG HCO3 ABG Base Excess Tsephen Test Hematocrit O2 Delivery Device Civil Preparedness Coordinator ID Sodium Potassium Chloride Carbon Dioxide Anion Gap BUN Creatinine GFR Calculation Glucose Calculated Osmolal ity Calcium Total Bilirubin AST ALT Alkaline Phosphata se Total Protein Albumin Globulin Salicylates Acetaminophen Ethyl Alcohol 123 mg/dL H mg/dL (0-10) Imaging Data^: CT Head: Attestation: I personally reviewed and interpreted this imaging study as follows: Radiologist's impression: [address] [address] [address] Scan Report Signed Patient: Rob Burnett Unit #: [id number] : 1975 Age/Sex: 46 / M ADM Date: 08/12/21 Loc: ER Room/Bed: Attending Dr: Ordering Provider/Ordering MD: Romario Ahmadi MD Date of Service: 08/12/21 Procedure(s): CT head wo con* [id number] Accession Number(s): [id number] Report Number: [id number] PROCEDURE INFORMATION: Exam: CT Head Without Contrast Exam date and time: 08/12/2021 8:43 PM Age: 46 years old Clinical indication: Altered mental status/memory loss; Patient HX: AMS. ETOH and unresponsive. TECHNIQUE: Imaging protocol: Computed tomography of the head without contrast. Total images: 205 Radiation optimization: All CT scans at this facility use at least one of these dose optimization techniques: automated exposure control; mA and/or kV adjustment per patient size (includes targeted exams where dose is matched to clinical indication); or iterative reconstruction. COMPARISON: CT head wo con* [id number] 05/24/2018 8:29 AM RADIATION DOSE METRICS: Total DLP (mGy-cm): 984.22 FINDINGS: Brain: No evidence of active or acute intracranial pathologic process, hemorrhage, or trauma. No visible evidence of diffuse cerebral edema or generalized demyelination. No mass effect. No midline shift. Cerebral ventricles: No ventriculomegaly. Paranasal sinuses: No evidence for active paranasal sinus disease. Mastoid air cells: Visualized mastoid air cells are well aerated. Bones/joints: Unremarkable. No acute fracture. Soft tissues: Unremarkable. CT/CT head wo con* [id number] IMPRESSION: No evidence of active or acute intracranial pathologic process, hemorrhage, or trauma. Radiation Dose CTDIVOL = (mGy): DLP = 984.22 (mGy-cm) Dictated By: Alistair Peralta Signed By: Alistair Peralta Signed Date/Time: 08/12/212109 DD/ 42 Discharge Plan Discharge Patient Disposition: Home Clinical Impression: Alcoholic intoxication Condition: Stable Prescriptions: No Action duloxetine [Cymbalta] 60 mg capsule,delayed release(DR/EC) 60 mg PO DAILY Qty: 60 RF: 1 trazodone 100 mg tablet 200 mg PO .HS Qty: 60 RF: 1 olanzapine 10 mg tablet 20 mg PO BEDTIME Qty: 60 RF: 1 sofosbuvir-velpatasvir [Epclusa] 400-100 mg tablet 1 tab PO DAILY 84 Days Qty: 28 RF: 2 multivitamin with folic acid [Thera] 400 mcg Tablet 1 tab PO DAILY Qty: 0 RF: 0 Medrol (Isiah) 4 mg tablets,dose pack See Rx Instructions .ROUTE .COMPLEX Qty: 21 RF: 0 meloxicam 15 mg tablet 15 mg PO DAILY PRN (Reason: pain) Qty: 30 RF: 0 methocarbamol 750 mg tablet 750 mg PO Q8H Qty: 20 RF: 0 methocarbamol [Robaxin-750] 750 mg tablet 750 mg PO Q6H Qty: 30 RF: 0 naproxen [Naprosyn] 500 mg tablet 500 mg PO BID PRN (Reason: pain) Qty: 20 RF: 0 cyclobenzaprine 10 mg tablet 10 mg PO BID PRN (Reason: muscle spasm) Qty: 15 RF: 0 meloxicam 15 mg tablet 15 mg PO DAILY Qty: 20 RF: 0 Discharge Orders: Discharge ED (Routine); Ordered 08/13/21 Ordered By: Romario Ahmadi Discharge Diet: Advance as tolerated Discharge Activity: Resume usual activity Patient Instructions: Alcohol Intoxication (ED) Coding Level of Care Code ED Corporate Account Executive for Justin Fwd Exam Comprehensive
[2021-08-12 19:00] VITALS: BP 136/91; PULSE 93; RESP 18; O2SAT 97
--- NOTE | 2021-08-12 19:04 | NUR.SHIFT ---
Pt appears to be resting with eyes closed and soft sleeping snoring.
[2021-08-12 19:37] LABS: Basophils # 0.1 10^3/uL (0.0-0.1); Basophils % 1.1 %; Eosinophils # 0.4 10^3/uL (0.0-0.8); Eosinophils % 4.9 %; Hematocrit 43.3 % (42.0-52.0); Hemoglobin 15.3 g/dL (11.7-16.6); Lymphocytes # 3.2 10^3/uL (0.8-4.8); Lymphocytes % 43.9 %; Mean Corpuscular HGB Conc 35.3 g/dL (30.0-36.0); Mean Corpuscular Hemoglobin 33.9 pg (28.0-34.0); Monocytes # 0.5 10^3/uL (0.2-0.9); Monocytes % 7.5 %; Neutrophils # 3.05 10^3/uL (1.8-7.7); Neutrophils % 42.5 %; Nucleated Red Blood Cells % 0 %; Platelet Count 223 10^3/cmm (130-400); Red Blood Count 4.51 10^6/uL (4.1-5.3); Red Cell Distribution Width 11.1 % (12.1-15.1); White Blood Count 7.2 10^3/uL (4.0-10.0)
[2021-08-12 19:55] LABS: Alanine Aminotransferase 117 U/L (0-41); Albumin Level 4.3 g/dL (3.5-5.2); Alcohol Level 267 mg/dL (0-10); Alkaline Phosphatase 65 IU/L (40-130); Anion Gap 17.9 (5-19); Aspartate Amino Transferase 73 U/L (0-40); Blood Urea Nitrogen 8 mg/dL (6-20); Carbon Dioxide 22 mmol/L (22-29); Chloride 102 mmol/L (98-107); Globulin 3.3 g/dL (1.3-4.6); Glomerular Filtration Rate 178.2 mL/min (90-130); Glucose 85 mg/dL (65-115); Osmolality Calculated 284 mOsm/kg (285-295); Potassium 3.9 mmol/L (3.5-5.1); Sodium 138 mmol/L (136-145); Total Bilirubin 0.2 mg/dL (0.15-1.2); Total Protein 7.6 g/dL (6.6-8.7)
[2021-08-12 19:57] LABS: Acetaminophen < 5.0 ug/mL (10-30); Salicylate < 0.3 mg/dL (3-10)
--- NOTE | 2021-08-12 20:43 | CTR_ITS ---
PROCEDURE INFORMATION: Exam: CT Head Without Contrast Exam date and time: 08/12/2021 8:43 PM Age: 46 years old Clinical indication: Altered mental status/memory loss; Patient HX: AMS. ETOH and unresponsive. TECHNIQUE: Imaging protocol: Computed tomography of the head without contrast. Total images: 205 Radiation optimization: All CT scans at this facility use at least one of these dose optimization techniques: automated exposure control; mA and/or kV adjustment per patient size (includes targeted exams where dose is matched to clinical indication); or iterative reconstruction. COMPARISON: CT head wo con* [id number] 05/24/2018 8:29 AM RADIATION DOSE METRICS: Total DLP (mGy-cm): 984.22 FINDINGS: Brain: No evidence of active or acute intracranial pathologic process, hemorrhage, or trauma. No visible evidence of diffuse cerebral edema or generalized demyelination. No mass effect. No midline shift. Cerebral ventricles: No ventriculomegaly. Paranasal sinuses: No evidence for active paranasal sinus disease. Mastoid air cells: Visualized mastoid air cells are well aerated. Bones/joints: Unremarkable. No acute fracture. Soft tissues: Unremarkable. CT/CT head wo con* [id number] IMPRESSION: No evidence of active or acute intracranial pathologic process, hemorrhage, or trauma. Radiation Dose CTDIVOL = (mGy): DLP = 984.22 (mGy-cm)
[2021-08-12 21:03] VITALS: BP 104/61; PULSE 81; RESP 16; O2SAT 95
[2021-08-12 21:35] LABS: ABG PCO2 44.9 mmHg (35-45); ABG PH Result 7.32 (7.35-7.45); Arterial Blood Gas Hematocrit 46.8 % (42-52); Base Excess ABG -3.2 mmol/L (-2.0-2.0); Blood Gas Allen Test Pos; Blood Gas Sample Site Radial, right; Blood Gas Sample Type Arterial; HCO3 ABG 23.1 mmol/L (22-26); Oxygen Device ROOM AIR
[2021-08-12 22:26] VITALS: BP 139/84; PULSE 80; RESP 18; O2SAT 94
[2021-08-12 23:06] VITALS: BP 131/95; PULSE 84; RESP 16; O2SAT 95
[2021-08-13 00:11] VITALS: BP 96/56; PULSE 85; RESP 18; O2SAT 94
--- NOTE | 2021-08-13 00:11 | PC.NURSE ---
Report to BJ Ralph
[2021-08-13 01:49] LABS: Alcohol Level 123 mg/dL (0-10)
[2021-08-13] MEDS: sodium chloride 0.9% 1,000 ML 999 ML IV (02:13)
[2021-08-13] MEDS: multivitamin therapeutic Tablet 1 TAB PO (03:01)
[2021-08-13 03:17] VITALS: BP 121/78; PULSE 87; RESP 16; O2SAT 98
== END 2021-08-13 03:20 | disposition home or self-care (01) ==
PROVIDERS: Emergency Provider Emergency Medicine
DX: F10.129 Alcohol abuse with intoxication, unspecified (principal); F17.210 Nicotine dependence, cigarettes, uncomplicated; F15.21 Other stimulant dependence, in remission
CPT/HCPCS: 36415; 36600; 70450; 80053; 80307; 82803; 85025; 96360; 96372; 99284; J3411; J7030

== ENCOUNTER → 2021-09-03 08:10 | Outpatient (BNVA) | payer MEDICAID, SELFPAY | PROVIDERS: Visit Provider Nurse Practitioner | DX: F31.9 Bipolar disorder, unspecified (principal); F10.20 Alcohol dependence, uncomplicated; F15.21 Other stimulant dependence, in remission; F17.210 Nicotine dependence, cigarettes, uncomplicated | CPT/HCPCS: 99214 ==

== ENCOUNTER 2021-11-04 11:19 | Outpatient (CLI) | payer MEDICAID, SELFPAY ==
[2021-11-06 00:03] LABS: HEP C RNA Viral Load Quant <1.18 NOT DETECTED Log IU/mL (NOT DETECTED); HEP C RNA Viral Load Quant <15 NOT DETECTED IU/mL (NOT DETECTED)
== END 2021-11-04 11:20 | disposition home or self-care (01) ==
LOC: LAB 11:21
PROVIDERS: PCP Family Medicine; Visit Provider Internal Medicine
DX: B19.20 Unspecified viral hepatitis C without hepatic coma (principal)
CPT/HCPCS: 36415; 87522

== ENCOUNTER → 2021-11-10 14:25 | Outpatient (BNVA) | payer MEDICAID, SELFPAY | PROVIDERS: PCP Family Medicine; Visit Provider Physician Assistant | DX: M47.896 Other spondylosis, lumbar region (principal); M54.50 Low back pain, unspecified | CPT/HCPCS: 72110 ==

== ENCOUNTER → 2021-12-01 08:00 | Outpatient (BNVA) | payer MEDICAID, SELFPAY | PROVIDERS: PCP Family Medicine; Visit Provider Nurse Practitioner | DX: F31.9 Bipolar disorder, unspecified (principal); F10.20 Alcohol dependence, uncomplicated; F17.210 Nicotine dependence, cigarettes, uncomplicated; F15.21 Other stimulant dependence, in remission | CPT/HCPCS: 99214 ==

== ENCOUNTER 2022-01-01 08:24 | Outpatient (CLI) | payer MEDICAID, SELFPAY ==
--- NOTE | 2022-01-01 08:45 | MR_ITS ---
WS: [id number] MRI LUMBAR SPINE NONCONTRAST TECHNIQUE: Sagittal T1, T2 and STIR imaging. Axial T2 imaging. Patient deferred axial PD imaging due to pain CLINICAL INFORMATION: M54.16 - Radiculopathy, lumbar region COMPARISON: MRI 7 FINDINGS: Mild lumbar curve. No acute compression. No high-grade central canal stenosis. Mild disc bulging L3-L 4 and L4-L5. Mild central canal stenosis in the cervical spinal rope making machine operator imaging at C4-C5 C5-C6 and C6-C 7. L1-L2: No significant disc bulging. Moderate facet arthropathy. Spinal canal and foramen are patent. L2-L3: Mild annular bulging. Moderate facet arthropathy. Spinal canal and foramen are patent. L3-L4: Mild annular bulging. Moderate facet arthropathy. Spinal canal and foramen are patent. L4-L5: Mild annular bulging with slight impingement on the ventral thecal sac. Mild to moderate centr al canal stenosis. Impingement traversing LEFT greater than RIGHT L5 nerve roots. Moderate facet arth ropathy. Mild RIGHT foraminal narrowing. L5-S1: No significant disc bulging. Moderate facet arthropathy. Spinal canal and foramen are patent. Visualized pelvic bony structures: Normal. Paravertebral soft tissues: Normal. MR/MR lumbar spine wo con* [id number] IMPRESSION: 1. Mild lumbar curve. No acute compression. No high-grade central canal stenos is. 2. Annular bulging L4-L5 with mild to moderate central canal stenosis progress ed since 2019. Impingement on traversing LEFT greater than RIGHT L5 nerve roots in the subarticular recess. 3. Mild RIGHT L4-L5 foraminal narrowing with slight contact of the exiting RIG HT L4 nerve root. This is slightly progressed compared to previous. 4. Mild annular bulging L3-L4. Spinal canal and foramen are patent. 5. Moderate facet arthropathy worse at L2-L3 L3-L4 and L4-L5. 6. Mild disc bulging C4-C5 C5-C6 and C6-C7 with mild central canal stenosis on the rope making machine operator imaging.
== END 2022-01-01 08:25 | disposition home or self-care (01) ==
PROVIDERS: PCP Family Medicine; Visit Provider Physician Assistant
DX: M54.16 Radiculopathy, lumbar region (principal); M51.26 Other intervertebral disc displacement, lumbar region; M47.816 Spondylosis without myelopathy or radiculopathy, lumbar region; M50.221 Other cervical disc displacement at C4-C5 level
CPT/HCPCS: 72148

== ENCOUNTER → 2022-02-11 09:03 | Outpatient (BNVA) | payer MEDICAID, SELFPAY | PROVIDERS: PCP Family Medicine; Visit Provider Nurse Practitioner | DX: F31.9 Bipolar disorder, unspecified (principal); F10.20 Alcohol dependence, uncomplicated; F17.210 Nicotine dependence, cigarettes, uncomplicated; F15.20 Other stimulant dependence, uncomplicated | CPT/HCPCS: 99214 ==

== ENCOUNTER 2022-03-19 21:30 | Emergency (ER) | payer MEDICAID, SELFPAY | END 2022-03-19 23:39 | disposition left against medical advice (07) | PROVIDERS: Emergency Provider Family Medicine; PCP Family Medicine | DX: Z53.21 Procedure and treatment not carried out due to patient leaving prior to being seen by health care provider (principal) ==

== ENCOUNTER → 2022-04-09 10:42 | Outpatient (BNVA) | payer MEDICAID, SELFPAY | PROVIDERS: PCP Family Medicine; Visit Provider Nurse Practitioner | DX: F31.64 Bipolar disorder, current episode mixed, severe, with psychotic features (principal); F17.210 Nicotine dependence, cigarettes, uncomplicated; F15.20 Other stimulant dependence, uncomplicated; F10.20 Alcohol dependence, uncomplicated | CPT/HCPCS: 99214 ==

== ENCOUNTER 2022-07-03 19:23 | Emergency (ER) | payer MEDICAID, SELFPAY ==
[2022-07-03 19:29] VITALS: PULSE 103; RESP 16; TEMP 36.5; O2SAT 98
--- NOTE | 2022-07-03 19:58 | W.ED.MALEGU ---
HPI - Male Genitourinary General: Chief complaint: Urogenital-Male Stated complaint: male issues Time Seen by Provider: 07/03/22 19:58 History of Present Illness: 47-year-old male patient comes in today with complaints of left testicular pain. Patient reports that he has extra fluid on his testicle. Patient reports increased pain to the testicle today along with low back pain. Patient appears in no acute distress. Patient does admit to alcohol on board. Review of Systems Const: Denies: fever(s) : Reports: testicular pain [facility] ED PFSH: Medical History (Updated 07/03/22 @ 20:04 by PEDRO Osuna) Alcohol dependence, in remission Alcohol dependence, uncomplicated Bipolar disorder, current episode mixed, severe, with psychotic features Nicotine dependence, cigarettes, uncomplicated Other stimulant dependence, in remission Other stimulant dependence, uncomplicated Psychiatric care Social History Smoking and tobacco status: current every day smoker cigarettes Packs smoked per day: 1 Smoking risk assessment/counseling performed?: Yes Tobacco counseling given: counseling >3 minutes Physical Exam Const: COMMON NORMALS: alert HENMT: COMMON NORMALS: normocephalic HEAD & SCALP: normocephalic Neck/C-Spine: COMMON NORMALS: full ROM Resp: COMMON NORMALS: normal respiratory effort Cardio: COMMON NORMALS: regular rate RATE: regular rate : PENIS: normal penis TESTES: Yes testicular lie normal and No Enlarged testicle(s) present Neuro: SENSORIUM/ORIENTATION: Yes alert Skin: COMMON NORMALS: no rashes or lesions noted GENERAL SKIN EXAM: no rashes or lesions noted Course Vital Signs: Vital signs: Vital Signs Temperature 97.7 F 07/03/22 19:29 Pulse Rate 103 H 07/03/22 19:29 Respiratory Rate 16 07/03/22 19:29 Pulse Oximetry 98 07/03/22 19:29 MDM - Male Medical Decision Making 47-year-old male patient states he has a history of fluid on his left testicle. Patient reports increased pain in his back and testicle tonight. Patient appears nontoxic. Patient does not seem to be intoxicated and does admit to using alcohol tonight. Exam of the testicles noted normal appearance and normal lie. Differential diagnosis includes exacerbation of chronic pain, malingering, alcohol intoxication, testicular pain due to hydrocele. Patient was given 30 mg of ketorolac for his pain. Patient was recommended to follow-up with primary care or specialist for further treatment. No signs of severe illness or injury was noted. Discharge Plan Discharge Patient Disposition: Home Clinical Impression: Hydrocele in adult Low back pain Qualifiers: Chronicity: chronic Back pain laterality: unspecified Sciatica presence: without sciatica Qualified Code(s): M54.50 - Low back pain, unspecified Condition: Stable Prescriptions: No Action multivitamin with folic acid [Thera] 400 mcg tablet 1 tab PO DAILY Label Comments: pt stated no money for this med duloxetine [Cymbalta] 60 mg capsule,delayed release(DR/EC) 120 mg PO DAILY Qty: 60 1RF olanzapine 10 mg tablet 20 mg PO BEDTIME Qty: 60 1RF hydroxyzine HCl 50 mg tablet 50 mg PO .HS Qty: 30 1RF Mavyret 100-40 mg tablet 3 tab PO DAILY 56 Days Qty: 84 1RF Rx Instructions: must administer with a meal/food naproxen [Naprosyn] 500 mg tablet 500 mg PO BID PRN (Reason: pain) Qty: 20 0RF Discharge Orders: Discharge ED (Routine); Ordered 07/03/22 Ordered By: Isidoro Giles Referrals: Michelle Ross MD [Primary Care Provider] - Discharge Diet: Usual diet Discharge Activity: Increase activity as tolerated Patient Instructions: Testicle Pain (ED) Activity Restrictions/Additional Instructions: Wear supportive underwear. Follow-up with specialist as ordered. Follow-up with primary care as needed prior to specialist appointment. Coding Level of Care Code ED Wood Drilling Machine Operator for Justin Sadler
[2022-07-03] MEDS: ketorolac 30 mg/mL INJ IM (20:14)
[2022-07-03 20:26] VITALS: BP 132/70; PULSE 90; RESP 16; TEMP 36.5; O2SAT 98
== END 2022-07-03 20:27 | disposition home or self-care (01) ==
PROVIDERS: Emergency Provider Nurse Practitioner Family; PCP Family Medicine
DX: N43.3 Hydrocele, unspecified (principal); M54.50 Low back pain, unspecified
CPT/HCPCS: 96372; 99284; J1885

== ENCOUNTER 2022-07-03 23:29 | Emergency (ER) | payer MEDICAID, SELFPAY ==
[2022-07-03 23:48] VITALS: BP 129/82; PULSE 66; RESP 20; TEMP 36.8; O2SAT 97; BMI 25.1
[2022-07-04] VITALS (7 sets, daily range): BP systolic 107–162; BP diastolic 62–102; PULSE 73–89; RESP 12–21; O2SAT 96–98
--- NOTE | 2022-07-04 | ECG_ITS ---
[facility] Test Date: 2022-07-04 Pat Name: Rob Burnett Department: Room: Gender: Male Drill Press Set Up Operator: : 1975 Requested By: Alireza Sanchez Order Number: [id number] Mariluz MD: Jet Castro M.D. Measurements Intervals [place] Rate: 70 P: 60 HI: 142 QRS: 45 QRSD: 81 T: 59 QT: 402 QTc: 435 Interpretive Statements SINUS RHYTHM POSSIBLE LEFT ATRIAL ENLARGEMENT [-0.1mV P-WAVE IN V1/V2] POSSIBLE RIGHT VENTRICULAR CONDUCTION DELAY [RSR (QR) IN V1/V2] Compared to ECG 03/20/2019 02:00:29 Incomplete right bundle-branch block no longer present Electronically Signed On 07-04-2022 8:37:03 CDT by Jet Castro M.D. [email or web address]
[2022-07-04] MEDS: ziprasidone 20 mg/mL SDV IM (00:08)
[2022-07-04] MEDS: ketorolac 30 mg/mL INJ IM (00:08)
[2022-07-04 00:25] LABS: Add Urine Microscopic? NO; Charge for UA Resulting for Rev
--- NOTE | 2022-07-04 00:32 | ED.C_ITS ---
HPI - Psych General: Chief Complaint: Psychiatric Symptoms Stated Complaint: SI Time Seen by Provider: 07/03/22 23:44 Source: patient History of Present Illness: 47-year-old male with a history of substance abuse, alcohol abuse, and chronic low back pain. He had come to the ER earlier in the evening with back pain and testicular pain. He refused a work-up at that point. He returns this evening complaining continued back pain. He notes that he is stressed out and has been having suicidal ideations. He is tearful. He is also intoxicated, likely with alcohol. He does not have a specific plan to hurt himself. MD complaint: suicidal ideation and feels depressed Onset (ago): hour(s) Duration: constant History of same: Yes Relieving factors: none Exacerbating factors: alcohol and other Context: recent alcohol abuse Associated psychiatric symptoms: depression and suicidal ideation Associated symptoms: Reports depression; Deny auditory hallucinations, visual hallucinations or homicidal ideation Treatments prior to arrival: none If self harm: admits thoughts of self harm Review of Systems Const: Denies: fever(s) ENMT: Denies: throat pain Card: Denies: chest pain Resp: Denies: dyspnea, productive cough or non-productive cough GI: Denies: abdominal pain, nausea, vomiting or diarrhea : Denies: flank pain Musc: Reports: back pain (Chronic) Neuro: Denies: headache(s) Psych: Reports: depression; Denies: visual hallucinations, auditory hallucinations or homicidal ideation [facility] ED PFSH: Medical History Alcohol dependence, in remission Alcohol dependence, uncomplicated Bipolar disorder, current episode mixed, severe, with psychotic features Nicotine dependence, cigarettes, uncomplicated Other stimulant dependence, in remission Other stimulant dependence, uncomplicated Psychiatric care Social History Smoking and tobacco status: current every day smoker cigarettes Packs smoked per day: 1 Smoking risk assessment/counseling performed?: Yes Tobacco counseling given: counseling >3 minutes Physical Exam Const: GENERAL APPEARANCE: cooperative and odor of alcohol detected; not ill appearing and not frail appearing HENMT: COMMON NORMALS: normocephalic, atraumatic and Normal external nose present HEAD & SCALP: normocephalic and atraumatic FACE & SINUS: normal facial exam and face symmetric NOSE: Normal external nose present Eye: COMMON NORMALS: Equal, round and reactive pupils present and EOMs intact bilaterally PUPIL: Yes Equal, round and reactive pupils present Neck/C-Spine: COMMON NORMALS: full ROM GENERAL: Yes trachea midline Chest: CHEST: Yes Symmetrical chest wall rise Resp: COMMON NORMALS: normal respiratory effort, No use of accessory muscles and clear to auscultation bilaterally AUSCULTATION: clear to auscultation bilaterally Cardio: COMMON NORMALS: regular rate and regular rhythm RATE: regular rate RHYTHM: regular rhythm GI: COMMON NORMALS: Normal to inspection, nondistended, normoactive bowel sounds present, Soft to palpation and non-tender PALPATION: Yes Soft to palpation Back/Pelvis: THORACIC SPINE/UPPER BACK: Yes normal to inspection LUMBAR SPINE/LOWER BACK: Yes normal to inspection and Yes lumbar spinal tenderness (Diffuse) Extremity: COMMON NORMALS: no pedal edema Neuro: SPEECH: abnormal speech Details: slurred Course Vital Signs: Vital signs: Vital Signs Temperature 98.2 F 07/03/22 23:48 Pulse Rate 76 07/04/22 05:15 Respiratory Rate 12 07/04/22 05:15 Blood Pressure 107/62 07/04/22 05:15 Pulse Oximetry 96 07/04/22 05:15 Oxygen Delivery Me thod 07/04/22 01:24 MDM - Psych Medical Decision Making Patient arrives asking for medication for agitation. He is given IM Geodon. He does appear somewhat intoxicated. Awaiting laboratory. He is compliant with drawing labs, and giving urine. He is also given a shot of ketorolac for pain. 07/04/2022 0532: Rob is more awake now. Is complaining of back pain. He no longer feels as if he wants to harm himself. He has no plan to do so. He notes that he is someplace safe to go home to if discharged this morning. He will be given a Percocet for pain here, and allowed discharge to the custody of a sober adult. Lab Data : 07/04/22 01:00 07/04/22 01:00 Laboratory Results WBC 5.7 10^3/uL (4.0-10.0) 07/04/22 01:00 RBC 4.58 10^6/uL (4.1-5.3) 07/04/22 01:00 Hgb 15.1 g/dL (11.7-16.6) 07/04/22 01:00 Hct 45.4 % (42.0-52.0) 07/04/22 01:00 MCV 99.1 fl (80-94) H 07/04/22 01:00 MCH 33.0 pg (28.0-34.0) 07/04/22 01:00 MCHC 33.3 g/dL (30.0-36.0) 07/04/22 01:00 RDW 12.7 % (12.1-15.1) 07/04/22 01:00 Plt Count 215 10^3/cmm (130-400) 07/04/22 01:00 MPV 10.7 fL (7.4-10.4) H 07/04/22 01:00 Neut % (Auto) 26.1 % 07/04/22 01:00 Lymph % (Auto) 61.2 % 07/04/22 01:00 [place] % (Auto) 5.5 % 07/04/22 01:00 Eos % (Auto) 5.6 % 07/04/22 01:00 Baso % (Auto) 1.4 % 07/04/22 01:00 Neut # (Auto) 1.48 10^3/uL (1.8-7.7) L 07/04/22 01:00 Lymph # (Auto) 3.5 10^3/uL (0.8-4.8) 07/04/22 01:00 [place] # (Auto) 0.3 10^3/uL (0.2-0.9) 07/04/22 01:00 Eos # (Auto) 0.3 10^3/uL (0.0-0.8) 07/04/22 01:00 Baso # (Auto) 0.1 10^3/uL (0.0-0.1) 07/04/22 01:00 Nucleated RBC % (auto) 0 % 07/04/22 01:00 Nucleated RBCs # 0.0 /100WBC 07/04/22 01:00 Sodium 140 mmol/L (136-145) 07/04/22 01:00 Potassium 4.0 mmol/L (3.5-5.1) 07/04/22 01:00 Chloride 102 mmol/L (98-107) 07/04/22 01:00 Carbon Dioxide 24 mmol/L (22-29) 07/04/22 01:00 Anion Gap 18.0 (5-19) 07/04/22 01:00 BUN 10 mg/dL (6-20) 07/04/22 01:00 Creatinine 0.6 mg/dL (0.7-1.2) L 07/04/22 01:00 GFR Calculation 143.8 mL/min (90-130) H 07/04/22 01:00 Glucose 102 mg/dL (65-115) 07/04/22 01:00 Calculated Osmolality 289 mOsm/kg (285-295) 07/04/22 01:00 Calcium 9.5 mg/dL (8.5-10.5) 07/04/22 01:00 Total Bilirubin 0.2 mg/dL (0.15-1.2) 07/04/22 01:00 AST 20 U/L (0-40) 07/04/22 01:00 ALT 12 U/L (0-41) 07/04/22 01:00 Alkaline Phosphatase 82 U/L (40-130) 07/04/22 01:00 Total Protein 8.2 g/dL (6.6-8.7) 07/04/22 01:00 Albumin 4.7 g/dL (3.5-5.2) 07/04/22 01:00 Globulin 3.5 g/dL (1.3-4.6) 07/04/22 01:00 TSH 1.86 uIU/mL (0.27-4.20) 07/04/22 01:00 Urine Color Colorless (Yellow) 07/03/22 23:50 Urine Appearance Clear (CLEAR) 07/03/22 23:50 Urine pH 5 (5-7) 07/03/22 23:50 Ur Specific [place] 1.005 (1.005-1.030) 07/03/22 23:50 Urine Protein Neg (Negative) 07/03/22 23:50 Urine Glucose (UA) Norm (Normal) 07/03/22 23:50 Urine Ketones Negative (Negative) 07/03/22 23:50 Urine Blood Neg (Negative) 07/03/22 23:50 Urine Nitrate Negative (Negative) 07/03/22 23:50 Urine Bilirubin Neg (Negative) 07/03/22 23:50 Urine Urobilinogen Neg mg/dL (Negative) 07/03/22 23:50 Ur Leukocyte Esterase Negative (Negative) 07/03/22 23:50 Salicylates < 0.3 mg/dL (3-10) L 07/04/22 01:00 Urine Opiates Screen Negative ng/mL (Negative) 07/03/22 23:50 Acetaminophen < 5.0 ug/mL (10-30) L 07/04/22 01:00 Ur Barbiturates Screen Negative ng/mL (Negative) 07/03/22 23:50 Ur Phencyclidine Scrn Negative ng/mL (Negative) 07/03/22 23:50 Ur Amphetamines Screen Negative ng/mL (Negative) 07/03/22 23:50 U Benzodiazepines Scrn Negative ng/mL (Negative) 07/03/22 23:50 Urine Cocaine Screen Negative ng/mL (Negative) 07/03/22 23:50 U Marijuana (THC) Screen Negative ng/mL (Negative) 07/03/22 23:50 Ethyl Alcohol 180 mg/dL (0-10) H 07/04/22 01:00 SARS-CoV-2 Ag (Rapid) Negative (Negative) 07/04/22 01:03 Discharge Plan Discharge Patient Disposition: Home Clinical Impression: Alcohol intoxication, Depression, Chronic back pain Condition: Stable Prescriptions: New ketorolac 10 mg tablet 10 mg PO TID PRN (Reason: pain) Qty: 10 0RF Discontinued naproxen [Naprosyn] 500 mg tablet 500 mg PO BID PRN (Reason: pain) Qty: 20 0RF No Action multivitamin with folic acid [Thera] 400 mcg tablet 1 tab PO DAILY Label Comments: pt stated no money for this med duloxetine [Cymbalta] 60 mg capsule,delayed release(DR/EC) 120 mg PO DAILY Qty: 60 1RF olanzapine 10 mg tablet 20 mg PO BEDTIME Qty: 60 1RF hydroxyzine HCl 50 mg tablet 50 mg PO .HS Qty: 30 1RF Mavyret 100-40 mg tablet 3 tab PO DAILY 56 Days Qty: 84 1RF Rx Instructions: must administer with a meal/food Discharge Orders: Discharge ED (Routine); Ordered 07/04/22 Ordered By: Alireza Adam Referrals: Michelle Ross MD [Primary Care Provider] - 1-3 days Patient Instructions: Depression (ED), Alcohol Intoxication (ED), Chronic Back Pain (DC), Opioid Safety, Pain Management Activity Restrictions/Additional Instructions: Avoid alcohol use. Medication as directed for pain. Return for any thoughts or wishes to harm your self or anyone else. Follow-up with your doctor regarding your back pain. Coding Level of Care Code ED Timber Inspector for Chg Fwd Exam Comprehensive
[2022-07-04 00:38] LABS: Amphetamines Screen Urine Negative (Negative); Barbiturates Screen Urine Negative (Negative); Benzodiazepines Screen Urine Negative (Negative); Cocaine Screen Urine Negative (Negative); Opiate Screen Urine Negative (Negative); PCP Screen Urine Negative (Negative); THC Screen Urine Negative (Negative)
[2022-07-04 00:49] LABS: Bilirubin Urine Neg (Negative); Blood Urine Neg (Negative); Glucose Urine UA Norm (Normal); Ketones Urine Negative (Negative); Leukocyte Esterase Urine Negative (Negative); Nitrate Urine Negative (Negative); Protein Urine Neg (Negative); Specific Gravity, Urine 1.005 (1.005-1.030); Urine Appearance Clear (CLEAR); Urine Color Colorless (Yellow); Urobilinogen Urine Neg (Negative); pH Urine 5 (5-7)
[2022-07-04 01:12] LABS: Basophils # 0.1 10^3/uL (0.0-0.1); Basophils % 1.4 %; Eosinophils # 0.3 10^3/uL (0.0-0.8); Eosinophils % 5.6 %; Hematocrit 45.4 % (42.0-52.0); Hemoglobin 15.1 g/dL (11.7-16.6); Lymphocytes # 3.5 10^3/uL (0.8-4.8); Lymphocytes % 61.2 %; Mean Corpuscular HGB Conc 33.3 g/dL (30.0-36.0); Mean Corpuscular Volume 99.1 fl (80-94); Mean Platelet Volume 10.7 fL (7.4-10.4); Monocytes # 0.3 10^3/uL (0.2-0.9); Monocytes % 5.5 %; Neutrophils # 1.48 10^3/uL (1.8-7.7); Neutrophils % 26.1 %; Nucleated Red Blood Cells % 0 %; Platelet Count 215 10^3/cmm (130-400); Red Blood Count 4.58 10^6/uL (4.1-5.3); Red Cell Distribution Width 12.7 % (12.1-15.1); White Blood Count 5.7 10^3/uL (4.0-10.0)
--- NOTE | 2022-07-04 01:15 | PC.NURSE ---
Pt was sitting in recliner near PSA when he slumped over forward in recliner and PSA called for assistance. Nursing staff helped sit pt up into recliner, found pulse, and called pt name to determine responsiveness. Pt did not respond to verbal stimuli, nursing staff pushed pt in recliner to ED room 10 and transferred pt onto bed. Obtained vitals, obtained IV access/blood, and obtained EKG. Once transferred to bed, pt stated he was cold. Pt was given warm blankets and door/curtains left open for patient observation.
[2022-07-04 01:31] LABS: SARS Covid-2 Antigen Negative (Negative)
[2022-07-04 01:42] LABS: Acetaminophen < 5.0 ug/mL (10-30); Alanine Aminotransferase 12 U/L (0-41); Albumin Level 4.7 g/dL (3.5-5.2); Alcohol Level 180 mg/dL (0-10); Alkaline Phosphatase 82 U/L (40-130); Aspartate Amino Transferase 20 U/L (0-40); Blood Urea Nitrogen 10 mg/dL (6-20); Calcium 9.5 mg/dL (8.5-10.5); Carbon Dioxide 24 mmol/L (22-29); Chloride 102 mmol/L (98-107); Creatinine Clr Calc Pharmacy 165.7678; Globulin 3.5 g/dL (1.3-4.6); Glomerular Filtration Rate 143.8 mL/min (90-130); Glucose 102 mg/dL (65-115); Osmolality Calculated 289 mOsm/kg (285-295); Salicylate < 0.3 mg/dL (3-10); Sodium 140 mmol/L (136-145); Thyroid Stimulating Hormone 1.86 uIU/mL (0.27-4.20); Total Bilirubin 0.2 mg/dL (0.15-1.2); Total Protein 8.2 g/dL (6.6-8.7)
--- NOTE | 2022-07-04 05:24 | PC.NURSE ---
Pt awake and sitting up in bed. Asked pt if he needed anything, pt ambulated to use bathroom and back to room
[2022-07-04] MEDS: oxyCODONE-APAP 5-325 mg Tablet 2 TAB PO (05:43)
== END 2022-07-04 05:51 | disposition home or self-care (01) ==
PROVIDERS: Emergency Provider Emergency Medicine; PCP Family Medicine
DX: F10.129 Alcohol abuse with intoxication, unspecified (principal); Y90.6 Blood alcohol level of 120-199 mg/100 ml; F32.A Depression, unspecified; G89.29 Other chronic pain; M54.50 Low back pain, unspecified
CPT/HCPCS: 80053; 80306; 80307; 81003; 84443; 85025; 87426; 93005; 96372; 99284; J1885; J3486

== ENCOUNTER 2023-07-21 20:11 | Emergency (ER) | payer MEDICAID, SELFPAY ==
[2023-07-21 20:44] VITALS: BP 146/91; PULSE 110; RESP 16; TEMP 36.8; O2SAT 97; BMI 25.1
--- NOTE | 2023-07-21 20:58 | XRR_ITS ---
PROCEDURE INFORMATION: Exam: XR Left Foot Exam date and time: 07/21/2023 9:46 PM Age: 48 years old Clinical indication: Pain; Foot; Left; Additional info: Pain, swelling, redness TECHNIQUE: Imaging protocol: Radiologic exam of the left foot. Views: 3 or more views. COMPARISON: No relevant prior studies available. FINDINGS: Bones/joints: Transverse lucency through the lateral sesamoid may reflect a bifid sesamoid or fracture. Correlate with any point tenderness at this location. Bony structures are otherwise intact without evidence arthropathy. Soft tissues: No radiopaque foreign body or soft tissue gas. XR/XR foot LT min 3V* [id number] IMPRESSION: Transverse lucency through the lateral sesamoid may reflect a fracture or a developmentally bifid sesamoid. Correlate with point tenderness at this location. Exam is otherwise normal.
[2023-07-21 21:22] LABS: Basophils # 0.1 10^3/uL (0.0-0.1); Hematocrit 44.8 % (37-53); Lymphocytes % 19.8 %; Mean Corpuscular HGB Conc 33.9 g/dL (30-55); Mean Corpuscular Hemoglobin 33.5 pg (27-33); Mean Corpuscular Volume 98.7 fl (82-101); Mean Platelet Volume 10.5 fL (7.4-10.4); Monocytes # 0.1 10^3/uL (0.2-0.9); Neutrophils # 3.76 10^3/uL (1.8-7.7); Neutrophils % 77.8 %; Nucleated Red Blood Cells % 0 %; Platelet Count 201 10^3/cmm (157-399); Red Blood Count 4.54 10^6/uL (3.85-5.65); White Blood Count 4.84 10^3/uL (3.29-11.43)
[2023-07-21 21:25] LABS: Erythrocyte Sedimentation Rate 11 mm/hr (0-10)
[2023-07-21 21:46] LABS: Alanine Aminotransferase 13 U/L (0-41); Alkaline Phosphatase 81 U/L (40-130); Aspartate Amino Transferase 17 U/L (0-40); Blood Urea Nitrogen 12 mg/dL (6-20); Calcium 9.3 mg/dL (8.5-10.5); Carbon Dioxide 18 mmol/L (22-29); Chloride 105 mmol/L (98-107); Creatinine Clr Calc Pharmacy 140.5423; Globulin 3.1 g/dL (1.3-4.6); Glomerular Filtration Rate 119.9 mL/min (90-130); Glucose 162 mg/dL (65-115); Osmolality Calculated 297 mOsm/kg (285-295); Sodium 142 mmol/L (136-145); Total Bilirubin 0.2 mg/dL (0.15-1.2); Total Protein 8.1 g/dL (6.6-8.7)
[2023-07-21 21:47] LABS: Anion Gap 22.9 (5-19); Potassium 3.9 mmol/L (3.5-5.1)
[2023-07-21 21:52] LABS: Procalcitonin 0.02 ng/mL (0-0.5)
--- NOTE | 2023-07-21 22:46 | ED_ITS ---
HPI - Extremity Problem General: Chief complaint: Extremity Problem,Nontraumatic Stated complaint: left foot pain/swelling Time Seen by Provider: 07/21/23 22:09 Source: patient Mode of arrival: ambulatory (with cane) Limitations: no limitations History of Present Illness: Patient presents to the emergency department today for evaluation treatment of acute on chronic low back pain and radiating left leg pain. Patient also notes that for a while now he has been having worsening pain of his left foot. He indicated to triage that he was concerned because his left foot was swollen. Triage originally had the patient checked in for concerns of swelling, redness, infection of the foot. Initial evaluation initiated out of triage obtain labs for concerns of cellulitis. However, after speaking to the patient in the room, patient has chronic low back pain and received a pain injection today. He s tates his pain is acutely worse at the moment. His examination does reveal some swelling of the foot and around the ankle but no significant color change or signs of open wounds. Further chart review shows patient has been seen and evaluated by orthopedics in the past. He has had multiple leaving AMA events. Chart shows he has been seen by pain management, had physical therapy, and followed by a back specialist. Patient has had multiple images done including MRIs and there was even discussi on of an EMG. Review of Systems General: Reports: 10 or more systems reviewed and unremarkable except in HPI and below PFS ED PFSH: Medical History (Updated 07/21/23 @ 23:21 by DAYNE Simmons) Alcohol dependence, in remission Alcohol dependence, uncomplicated Bipolar disorder, current episode mixed, severe, with psychotic features Nicotine dependence, cigarettes, uncomplicated Other stimulant dependence, in remission Other stimulant dependence, uncomplicated Social History Smoking and tobacco status: current every day smoker cigarettes Packs smoked per day: 1 Smoking risk assessment/counseling performed?: Yes Tobacco counseling given: counseling >3 minutes Physical Exam Const: COMMON NORMALS: no acute distress, patient oriented x3 and alert OTHER: Patient presents tachycardic with fast and racing speech and seems to have difficulty with motor agitation. HENMT: COMMON NORMALS: normocephalic, atraumatic and hearing grossly normal bilaterally HEAD & SCALP: normocephalic and atraumatic Eye: COMMON NORMALS: Equal, round and reactive pupils present, EOMs intact bilaterally and conjunctivae normal CONJUNCTIVA: Yes conjunctivae normal PUPIL: Yes Equal, round and reactive pupils present Neck/C-Spine: COMMON NORMALS: full ROM and no JVD Lymph: LYMPHATIC: no lymphadenopathy noted Resp: COMMON NORMALS: normal respiratory effort, No retractions and No use of accessory muscles Cardio: COMMON NORMALS: no JVD and regular rate RATE: regular rate Back/Pelvis: OTHER: Patient demonstrates flexion extension of the lumbar region and is also able to lean to the side to allow for examination. Patient has a small punctum agapito from his injection but no surrounding erythema, swelling, or draining. No bruising. Extremity: NARRATIVE EXTREMITY EXAM: Patient is ambulatory and weightbearing here in the emergency department with a cane assist which she reports is chronic for him. On examination, patient indicates that when I press on the distal arch of his left foot it is extremely painful. Patient has no other complaints of specific points of pain to his foot or toes on exam. Neuro: COMMON NORMALS: patient oriented x3 SENSORIUM/ORIENTATION: Yes alert OTHER: No signs of obvious neurological deficit on examination to the extremities. Psych: COMMON NORMALS: mental status grossly normal, Normal thought process present, cooperative and normal affect THOUGHT PROCESS: Normal thought process present Skin: COMMON NORMALS: no rashes or lesions noted and turgor normal NARRATIVE SKIN EXAM: Patient has very mild edema of the left ankle and foot without pitting edema. No significant color changes including redness or paleness GENERAL SKIN EXAM: no rashes or lesions noted and turgor normal Course Vital Signs: Vital signs: Vital Signs Temperature 98.2 F 07/21/23 20:44 Pulse Rate 89 07/21/23 23:19 Respiratory Rate 18 07/21/23 23:19 Blood Pressure 148/108 07/21/23 23:19 Pulse Oximetry 96 07/21/23 23:19 Oxygen Delivery Me thod Room Air 07/21/23 23:19 MDM - Extremity (Nontraumatic) Medical Decision Making From triage, work-up was initiated to look into potential cellulitis. Lab work is unremarkable and physical examination reveals patient complaining more of pain due to chronic issues then acute pain associated to infection or wound. However, he was noted on his physical examination he did have point tenderness around the ball of his left foot. An x-ray was taken of the foot out of triage which showed fracture of one of his sesamoid bones. Explained to the patient that there was an abnormal finding on his x-ray which he states has never been noted before and previous imaging. While we are not sure how it may have happened, does correlate with his point tenderness on his examination and why he has had acutely worsening foot pain over the last couple of weeks. Patient was given a walking boot to allow him to remain upright and ambulatory using his cane rather than try and put him on crutches as I do not think he is stable enough to tolerate it. Patient appears to have a acute worsening of his chronic back pains. Patient has seen specialist in the past and is currently getting injections for his pain. We treated acutely for his pain but, indicated he needs follow-up with his primary care doctor to discuss continued issues with chronic back pain. He was given strict return precautions for signs of cauda equina for which he verbalized understanding and agreement to treatment plan. Differential Diagnosis Likely lower extremity edema; Unlikely herpes zoster, gout, cellulitis, superficial thrombophlebitis or deep vein thrombosis of lower extremity Lab Data 07/21/23 21:10 07/21/23 21:10 Radiology Impressions Foot X-Ray 07/21/23 20:58 IMPRESSION: Transverse lucency through the lateral sesamoid may reflect a fracture or a developmentally bifid sesamoid. Correlate with point tenderness at this location. Exam is otherwise normal. Laboratory Results WBC 4.84 10^3/uL (3.29-11.43) 07/21/23 21:10 RBC 4.54 10^6/uL (3.85-5.65) 07/21/23 21:10 Hgb 15.20 g/dL (11.27-16.99) 07/21/23 21:10 Hct 44.8 % (37-53) 07/21/23 21:10 MCV 98.7 fl (82-101) 07/21/23 21:10 MCH 33.5 pg (27-33) H 07/21/23 21:10 MCHC 33.9 g/dL (30-55) 07/21/23 21:10 RDW 13.0 % (12.1-15.1) 07/21/23 21:10 Plt Count 201 10^3/cmm (157-399) 07/21/23 21:10 MPV 10.5 fL (7.4-10.4) H 07/21/23 21:10 Neut % (Auto) 77.8 % 07/21/23 21:10 Lymph % (Auto) 19.8 % 07/21/23 21:10 [place] % (Auto) 1.0 % 07/21/23 21:10 Eos % (Auto) 0.0 % 07/21/23 21:10 Baso % (Auto) 1.0 % 07/21/23 21:10 Neut # (Auto) 3.76 10^3/uL (1.8-7.7) 07/21/23 21:10 Lymph # (Auto) 1.0 10^3/uL (0.8-4.8) 07/21/23 21:10 [place] # (Auto) 0.1 10^3/uL (0.2-0.9) L 07/21/23 21:10 Eos # (Auto) 0.0 10^3/uL (0.0-0.8) 07/21/23 21:10 Baso # (Auto) 0.1 10^3/uL (0.0-0.1) 07/21/23 21:10 Nucleated RBC % (auto) 0 % 07/21/23 21:10 Nucleated RBCs # 0.0 /100WBC 07/21/23 21:10 ESR 11 mm/hr (0-10) H 07/21/23 21:10 Sodium 142 mmol/L (136-145) 07/21/23 21:10 Potassium 3.9 mmol/L (3.5-5.1) 07/21/23 21:10 Chloride 105 mmol/L (98-107) 07/21/23 21:10 Carbon Dioxide 18 mmol/L (22-29) L 07/21/23 21:10 Anion Gap 22.9 (5-19) H 07/21/23 21:10 BUN 12 mg/dL (6-20) 07/21/23 21:10 Creatinine 0.7 mg/dL (0.7-1.2) 07/21/23 21:10 GFR Calculation 119.9 mL/min (90-130) 07/21/23 21:10 Glucose 162 mg/dL (65-115) H 07/21/23 21:10 Calculated Osmolality 297 mOsm/kg (285-295) H 07/21/23 21:10 Calcium 9.3 mg/dL (8.5-10.5) 07/21/23 21:10 Total Bilirubin 0.2 mg/dL (0.15-1.2) 07/21/23 21:10 AST 17 U/L (0-40) 07/21/23 21:10 ALT 13 U/L (0-41) 07/21/23 21:10 Alkaline Phosphatase 81 U/L (40-130) 07/21/23 21:10 C-Reactive Protein 3.0 mg/L (0.0-4.9) 07/21/23 21:10 Total Protein 8.1 g/dL (6.6-8.7) 07/21/23 21:10 Albumin 5.0 g/dL (3.5-5.2) 07/21/23 21:10 Globulin 3.1 g/dL (1.3-4.6) 07/21/23 21:10 Procalcitonin 0.02 ng/mL (0-0.5) 07/21/23 21:10 Urine Color Yellow (Yellow) 07/21/23 23:07 Urine Appearance Clear (CLEAR) 07/21/23 23:07 Urine pH 5 (5-7) 07/21/23 23:07 Ur Specific [place] 1.020 (1.005-1.030) 07/21/23 23:07 Urine Protein 1+ (Negative) H 07/21/23 23:07 Urine Glucose (UA) 1+ (Normal) H 07/21/23 23:07 Urine Ketones 1+ (Negative) H 07/21/23 23:07 Urine Blood Neg (Negative) 07/21/23 23:07 Urine Nitrate Negative (Negative) 07/21/23 23:07 Urine Bilirubin Neg (Negative) 07/21/23 23:07 Urine Urobilinogen Neg mg/dL (Negative) 07/21/23 23:07 Ur Leukocyte Esterase Negative (Negative) 07/21/23 23:07 Urine RBC None /hpf (0-2) 07/21/23 23:07 Urine WBC None /hpf (0-5) 07/21/23 23:07 Ur Squamous Epith Cells None /hpf (0-5) 07/21/23 23:07 Amorphous Sediment Not Reportable 07/21/23 23:07 Urine Bacteria Trace /hpf (NONE) 07/21/23 23:07 Urine Mucus 1+ /hpf 07/21/23 23:07 Urine Opiates Screen Negative ng/mL (Negative) 07/21/23 23:07 Ur Barbiturates Screen Negative ng/mL (Negative) 07/21/23 23:07 Ur Phencyclidine Scrn Negative ng/mL (Negative) 07/21/23 23:07 Ur Amphetamines Screen Negative ng/mL (Negative) 07/21/23 23:07 U Benzodiazepines Scrn Negative ng/mL (Negative) 07/21/23 23:07 Urine Cocaine Screen Negative ng/mL (Negative) 07/21/23 23:07 U Marijuana (THC) Screen Negative ng/mL (Negative) 07/21/23 23:07 All radiology interpretation(s) finalized by discharge Discharge Plan Discharge Patient Disposition: Home Clinical Impression: Closed fracture of sesamoid bone of left foot, Chronic low back pain with left- sided sciatica Condition: Stable Prescriptions: New prednisone 20 mg tablet 20 mg PO BID 5 Days Qty: 10 0RF naproxen 500 mg tablet 500 mg PO BID PRN (Reason: pain) Qty: 20 0RF No Action multivitamin with folic acid [Thera] 400 mcg tablet 1 tab PO DAILY Patient Comments: pt stated no money for this med duloxetine [Cymbalta] 60 mg capsule,delayed release(DR/EC) 120 mg PO DAILY Qty: 60 1RF olanzapine 10 mg tablet 20 mg PO BEDTIME Qty: 60 1RF hydroxyzine HCl 50 mg tablet 50 mg PO .HS Qty: 30 1RF Mavyret 100-40 mg tablet 3 tab PO DAILY 56 Days Qty: 84 1RF Rx Instructions: must administer with a meal/food ketorolac 10 mg tablet 10 mg PO TID PRN (Reason: pain) Qty: 10 0RF Discharge Orders: Discharge ED (Routine); Ordered 07/21/23 Ordered By: Elva Abbasi Other Ambulatory Orders: DME: Miscellaneous (Order) Facility: [facility] - Location: Emergency Room Ordered By: Elva Abbasi Referrals: Michelle Ross MD [Primary Care Provider] - Patient Instructions: Foot Fracture in Adults (ED), Chronic Back Pain (DC) Activity Restrictions/Additional Instructions: On the examination of your foot, you indicated pain and discomfort when I pressed on the bottom part of your foot by your great toe and by the arch. On your x-ray today, there does show concerns of a fracture to your accessory bone- also known as a sesamoid bone. This could be part of the reason you are having increasing pain in your foot with walking and the development of additional swelling. We are putting you in a walking boot which I would like you to remain in anytime you are up and walking around. I have also requested a follow-up peggy ointment with podiatry to further evaluate this injury. Unfortunately, as you are well aware, chronic back pain can be extremely difficult to treat as you have seen several specialist, pain management, receiving injections and has tried physical therapy. Treatment through the emergency department often does not provide long-term relief for your back pain. We do recommend you reach out to your doctor to make them aware of your acute worsening in pain. If for any reason you lose bowel or bladder function you need to be seen and reevaluated. Coding Level of Care Code ED Otorhinolaryngologist for Justin Sadler
[2023-07-21] MEDS: dexamethasone 10 mg/mL INJ IM (23:13)
[2023-07-21 23:17] LABS: Add Urine Microscopic? YES; Bilirubin Urine Neg (Negative); Blood Urine Neg (Negative); Glucose Urine UA 1+ (Normal); Ketones Urine 1+ (Negative); Leukocyte Esterase Urine Negative (Negative); Nitrate Urine Negative (Negative); Protein Urine 1+ (Negative); Urine Appearance Clear (CLEAR); Urine Color Yellow (Yellow); Urobilinogen Urine Neg (Negative); pH Urine 5 (5-7)
[2023-07-21 23:18] LABS: Add Urine Culture? No; Bacteria Urine TRACE /hpf; Mucus Urine 1+ /hpf
[2023-07-21 23:19] VITALS: BP 148/108; PULSE 89; RESP 18; O2SAT 96
[2023-07-21] MEDS: HYDROcodone-acetaminophen 5-325 mg Tablet 1 TAB PO (23:20)
[2023-07-21 23:21] LABS: Amphetamines Screen Urine Negative (Negative); Barbiturates Screen Urine Negative (Negative); Benzodiazepines Screen Urine Negative (Negative); Cocaine Screen Urine Negative (Negative); Opiate Screen Urine Negative (Negative); PCP Screen Urine Negative (Negative); THC Screen Urine Negative (Negative)
[2023-07-21] MEDS: ketorolac 60 mg/2 mL INJ IM (23:21)
--- NOTE | 2023-07-22 08:23 | PC.SOCIAL ---
Ortho Referral Referral to clinic at this time. Clinic to contact patient with appt date/time.
== END 2023-07-22 00:05 | disposition home or self-care (01) ==
PROVIDERS: Emergency Provider Physician Assistant; PCP Family Medicine
DX: S92.812A Other fracture of left foot, initial encounter for closed fracture (principal); M54.42 Lumbago with sciatica, left side; G89.29 Other chronic pain; F17.210 Nicotine dependence, cigarettes, uncomplicated; X58.XXXA Exposure to other specified factors, initial encounter
CPT/HCPCS: 36415; 73630; 80053; 80306; 81001; 84145; 85025; 85651; 86140; 87040; 96372; 99284; J1100; J1885

== ENCOUNTER → 2023-07-25 07:17 | Outpatient (BNVA) | payer MEDICAID, SELFPAY | PROVIDERS: PCP Family Medicine; Visit Provider Podiatrist Foot & Ankle Surgery | DX: M54.16 Radiculopathy, lumbar region (principal); M79.672 Pain in left foot | CPT/HCPCS: 99203 ==

== ENCOUNTER → 2023-08-08 13:30 | Outpatient (BNVA) | payer MEDICAID, SELFPAY | PROVIDERS: PCP Family Medicine; Visit Provider Podiatrist Foot & Ankle Surgery | DX: S92.812A Other fracture of left foot, initial encounter for closed fracture (principal); X58.XXXA Exposure to other specified factors, initial encounter; M54.16 Radiculopathy, lumbar region | CPT/HCPCS: 73630; 99213 ==

== ENCOUNTER 2023-09-12 07:32 | Outpatient (CLI) | payer MEDICAID, SELFPAY ==
--- NOTE | 2023-09-12 08:00 | MR_ITS ---
WS: [id number] MRI GENERAL LEFT FOOT WITHOUT CONTRAST. COMPARISON: Radiographs 07/21/2023 and 08/08/2023 Multiplanar, multisequence imaging is performed without contrast. There is edema throughout the lateral sesamoid bone associated with the first metatarsal head. The fr acture is identified it is less apparent than on the radiographs suggest there may be some interval h ealing. There is also a tiny amount of edema within the medial sesamoid bone and also in the first me tatarsal head. The largest amount of edema in the first metatarsal head is closely associated with th e fracture of the lateral sesamoid bone. Both sesamoid bones appear normally positioned. The flexor h allucis longus tendon is normally positioned between the medial and lateral sesamoids. The intersesam oid ligament is seen only on one image but appears grossly intact with a small amount of adjacent noelle ma. No additional marrow edema or fractures are identified. Tarsometatarsal articulation is intact. Lisfr anc ligament appears intact. IMPRESSION: 1. Marrow edema with healing fracture noted in the lateral sesamoid bone associated with the first me tatarsal head. No displacement. 2. There is additional marrow edema and the medial sesamoid bone and also the first metatarsal head. Edema involving the first metatarsal head closely associated with the lateral sesamoid fracture. Prob ably representing an impaction injury with fracture which is healing also. 3. No additional fractures. 4. Flexor hallucis longus tendon normal position.
== END 2023-09-12 07:33 | disposition home or self-care (01) ==
LOC: RAD 07:32
PROVIDERS: PCP Family Medicine; Visit Provider Podiatrist Foot & Ankle Surgery
DX: S92.812A Other fracture of left foot, initial encounter for closed fracture (principal); X58.XXXA Exposure to other specified factors, initial encounter; Y93.9 Activity, unspecified; Y92.9 Unspecified place or not applicable; Y99.9 Unspecified external cause status; R60.9 Edema, unspecified
CPT/HCPCS: 73718

== ENCOUNTER → 2023-09-15 10:43 | Outpatient (BNVA) | payer MEDICAID, SELFPAY | PROVIDERS: PCP Family Medicine; Visit Provider Podiatrist Foot & Ankle Surgery | DX: M54.16 Radiculopathy, lumbar region; M79.672 Pain in left foot; S92.812A Other fracture of left foot, initial encounter for closed fracture; X58.XXXA Exposure to other specified factors, initial encounter | CPT/HCPCS: 99213 ==

== ENCOUNTER 2023-12-10 05:35 | Emergency (ER) | payer MEDICAID, SELFPAY ==
[2023-12-10 05:39] VITALS: BP 146/101; PULSE 76; RESP 18; TEMP 36.7; O2SAT 98; BMI 24.8
--- NOTE | 2023-12-10 05:51 | ED_ITS ---
Documented by User: Pablito Juares MD 12/10/23 05:57 HPI - Abdominal Pain 2 General: Chief Complaint: Abdominal Pain Stated Complaint: left side and abd pain Time Seen by Provider: 12/10/23 05:51 History of Present Illness: 48-year-old male presents to the emergen cy department with complaints of left flank pain. He states the pain started 3 to 4 days ago. He is a poor historian regarding his past medical history. He states he does not know what number to put on his pain but states he has pain. He states that he had a back surgery approximately 6 weeks ago in [facility] but does not recall what type of back surgery or who did it. He states that he does not know what makes his pain better or what makes the pain worse. Review of Systems 2 Musc: Reports: back pain PFSH ED 2 PFSH: Medical History Other stimulant dependence, uncomplicated Alcohol dependence, uncomplicated Nicotine dependence, cigarettes, uncomplicated Bipolar disorder, current episode mixed, severe, with psychotic features Alcohol dependence, in remission Other stimulant dependence, in remission Social History Smoking and tobacco/nicotine status: current every day tobacco/nicotine user cigarettes Packs smoked per day: 1 Physical Exam 2 Const: COMMON NORMALS: no acute distress, patient oriented x3 and alert HENMT: COMMON NORMALS: normocephalic and atraumatic HEAD & SCALP: n ormocephalic and atraumatic Eye: COMMON NORMALS: Equal, round and reactive pupils present and EOMs intact bilaterally PUPIL: Yes Equal, round and reactive pupils present Neck/C-Spine: COMMON NORMALS: full ROM and supple Resp: COMMON NORMALS: normal respiratory effort and clear to auscultation bilaterally AUSCULTATION: clear to auscultation bilaterally Cardio: COMMON NORMALS: regular rate, regular rhythm, S1 normal heart sound present, S2 normal heart sound present and Peripheral pulses 2+ throughout R ATE: regular rate RHYTHM: regular rhythm HEART SOUNDS: S1 normal heart sound present and S2 normal heart sound present PERIPHERAL PULSES: Peripheral pulses 2+ throughout GI: COMMON NORMALS: Normal to inspection, nondistended, normoactive bowel sounds present, Soft to palpation and non-tender PALPATION: Yes Soft to palpation : COMMON NORMALS: Yes no CVA tenderness BLADDER/KIDNEY EXAM: Yes no CVA tenderness Back/Pelvis: COMMON NORMALS: no CVA tenderness and thoracic and lumbar spine normal to inspection Extremity: COMMON NORMALS: normal to inspection, full ROM and capillary refill normal Neuro: COMMON NORMALS: patient oriented x3 SENSORIUM/ORIENTATION: Yes alert Psych: COMMON NORMALS: mental status grossly normal, Normal thought process present, cooperative and speech normal SPEECH: Yes normal speech THOUGHT PROCESS: Normal thought process present Skin: COMMON NORMALS: no rashes or lesions noted GENERAL SKIN EXAM: no rashes or lesions noted Course 2 Vital Signs: Vital signs: Vital Signs Temperature 98.1 F 12/10/23 05:39 Pulse Rate 59 L 12/10/23 07:18 Respiratory Rate 16 12/10/23 07:18 Blood Pressure 131/88 12/10/23 07:18 Pulse Oximetry 99 12/10/23 07:18 Oxygen Delivery Me thod Room Air 12/10/23 07:18 MDM - Abdominal Pain Medical Decision Making Physical exam completed document I will obtain a CBC and CMP as well as urinalysis and urine drug screen. I have discussed the patient's case with the on-coming physician <Dr. Panda > and they have assumed care of the patient. We have discussed the current lab/radiographic results that have been resulted and the pending tests. Medical Records I reviewed the patient's medical records. Lab Data 12/10/23 05:46 12/10/23 05:46 Labs/Radiology: Laboratory Results WBC 5.71 10^3/uL (3.29-11.43) 12/10/23 05:46 RBC 4.66 10^6/uL (3.85-5.65) 12/10/23 05:46 Hgb 15.60 g/dL (11.27-16.99) 12/10/23 05:46 Hct 46.7 % (37-53) 12/10/23 05:46 MCV 100.2 fl (82-101) 12/10/23 05:46 MCH 33.5 pg (27-33) H 12/10/23 05:46 MCHC 33.4 g/dL (30-55) 12/10/23 05:46 RDW 12.7 % (12.1-15.1) 12/10/23 05:46 Plt Count 280 10^3/cmm (157-399) 12/10/23 05:46 MPV 9.4 fL (7.4-10.4) 12/10/23 05:46 Neut % (Auto) 37.5 % 12/10/23 05:46 Lymph % (Auto) 39.2 % 12/10/23 05:46 [place] % (Auto) 14.9 % 12/10/23 05:46 Eos % (Auto) 7.0 % 12/10/23 05:46 Baso % (Auto) 1.2 % 12/10/23 05:46 Neut # (Auto) 2.14 10^3/uL (1.8-7.7) 12/10/23 05:46 Lymph # (Auto) 2.2 10^3/uL (0.8-4.8) 12/10/23 05:46 [place] # (Auto) 0.9 10^3/uL (0.2-0.9) 12/10/23 05:46 Eos # (Auto) 0.4 10^3/uL (0.0-0.8) 12/10/23 05:46 Baso # (Auto) 0.1 10^3/uL (0.0-0.1) 12/10/23 05:46 Nucleated RBC % (auto) 0 % 12/10/23 05:46 Nucleated RBCs # 0.0 /100WBC 12/10/23 05:46 Sodium 137 mmol/L (136-145) 12/10/23 05:46 Potassium 4.2 mmol/L (3.5-5.1) 12/10/23 05:46 Chloride 101 mmol/L (98-107) 12/10/23 05:46 Carbon Dioxide 25 mmol/L (22-29) 12/10/23 05:46 Anion Gap 15.2 (5-19) 12/10/23 05:46 BUN 18 mg/dL (6-20) 12/10/23 05:46 Creatinine 0.7 mg/dL (0.7-1.2) 12/10/23 05:46 GFR Calculation 119.9 mL/min (90-130) 12/10/23 05:46 Glucose 108 mg/dL (65-115) 12/10/23 05:46 Calculated Osmolality 286 mOsm/kg (285-295) 12/10/23 05:46 Calcium 9.0 mg/dL (8.5-10.5) 12/10/23 05:46 Total Bilirubin 0.2 mg/dL (0.15-1.2) 12/10/23 05:46 AST 18 U/L (0-40) 12/10/23 05:46 ALT 10 U/L (0-41) 12/10/23 05:46 Alkaline Phosphatase 117 U/L (40-130) 12/10/23 05:46 Total Protein 8.1 g/dL (6.6-8.7) 12/10/23 05:46 Albumin 4.4 g/dL (3.5-5.2) 12/10/23 05:46 Globulin 3.7 g/dL (1.3-4.6) 12/10/23 05:46 Urine Color Yellow (Yellow) 12/10/23 06:40 Urine Appearance Clear (CLEAR) 12/10/23 06:40 Urine pH 6 (5-7) 12/10/23 06:40 Ur Specific [place] 1.020 (1.005-1.030) 12/10/23 06:40 Urine Protein Neg (Negative) 12/10/23 06:40 Urine Glucose (UA) Norm (Normal) 12/10/23 06:40 Urine Ketones Negative (Negative) 12/10/23 06:40 Urine Blood Neg (Negative) 12/10/23 06:40 Urine Nitrate Negative (Negative) 12/10/23 06:40 Urine Bilirubin Neg (Negative) 12/10/23 06:40 Urine Urobilinogen Norm mg/dL (Negative) 12/10/23 06:40 Ur Leukocyte Esterase Negative (Negative) 12/10/23 06:40 Urine Opiates Screen Negative ng/mL (Negative) 12/10/23 06:40 Ur Barbiturates Screen Negative ng/mL (Negative) 12/10/23 06:40 Ur Phencyclidine Scrn Negative ng/mL (Negative) 12/10/23 06:40 Ur Amphetamines Screen Positive ng/mL (Negative) H 12/10/23 06:40 U Benzodiazepines Scrn Negative ng/mL (Negative) 12/10/23 06:40 Urine Cocaine Screen Negative ng/mL (Negative) 12/10/23 06:40 U Marijuana (THC) Screen Negative ng/mL (Negative) 12/10/23 06:40 All radiology interpretation(s) finalized by discharge Discharge Plan Discharge Patient Disposition: Home Clinical Impression: Low back pain radiating to left lower extremity Condition: Stable Prescriptions: New tizanidine 4 mg tablet 4 mg PO Q6H PRN (Reason: muscle spasticity) Qty: 20 0RF Rx Instructions: do not exceed 3 doses per 24 hrs prednisone 20 mg tablet 20 mg PO TID Qty: 15 0RF Rx Instructions: 1 p.o. 3 times daily x3 days, 1 p.o. twice daily x2 days, 1 p.o. daily x2 days diclofenac sodium 75 mg tablet,delayed release (DR/EC) 75 mg PO Q12H PRN (Reason: pain) Qty: 20 0RF Discontinued ketorolac 10 mg tablet 10 mg PO TID PRN (Reason: pain) Qty: 10 0RF naproxen 500 mg tablet 500 mg PO BID PRN (Reason: pain) Qty: 20 0RF No Action multivitamin with folic acid [Thera] 400 mcg tablet 1 tab PO DAILY Patient Comments: pt stated no money for this med duloxetine [Cymbalta] 60 mg capsule,delayed release(DR/EC) 120 mg PO DAILY Qty: 60 1RF olanzapine 10 mg tablet 20 mg PO BEDTIME Qty: 60 1RF hydroxyzine HCl 50 mg tablet 50 mg PO .HS Qty: 30 1RF Mavyret 100-40 mg tablet 3 tab PO DAILY 56 Days Qty: 84 1RF Rx Instructions: must administer with a meal/food Discharge Orders: Discharge ED (Routine); Ordered 12/10/23 Ordered By: Luis Panda Referrals: Michelle Ross MD [Primary Care Provider] - Discharge Diet: Usual diet Discharge Activity: Resume usual activity Patient Instructions: Opioid Safety, Pain Management Activity Restrictions/Additional Instructions: Thank you for choosing [facility] for your healthcare needs today. Please realize this is an emergency room and that we are providing you with a medical screening exam and this may not be complete and all inclusive of all the testing and or work up that you may need to determine your ailment or severity of your illness. It is very important that you follow up as instructed or that you return to the Emergency Department should you have concerns or if your condition changes or worsens in any way. You were seen today for low back pain. Recommend you follow-up with your back surgeon on Tuesday. You can start oral steroids use the anti-inflammatories and muscle relaxers as needed. You were given a prescription for diclofenac do not take Naprosyn or ketorolac with the diclofenac. Sign Out Sign Out Data: Patient Sign Out occurred on 12/10/23 at 05:58. Patient's care was discussed, and care was transferred from Pablito Juares MD to Luis Panda DO. Coding Level of Care Code ED Polysomnography Technician for Chg Fwd Documented by User: Luis Panda DO 12/10/23 07:52 HPI - Abdominal Pain 2 General: Chief Complaint: Abdominal Pain Stated Complaint: left side and abd pain Time Seen by Provider: 12/10/23 05:51 [facility] ED 2 PFS: Medical History Other stimulant dependence, uncomplicated Alcohol dependence, uncomplicated Nicotine dependence, cigarettes, uncomplicated Bipolar disorder, current episode mixed, severe, with psychotic features Alcohol dependence, in remission Other stimulant dependence, in remission Social History Smoking and tobacco/nicotine status: current every day tobacco/nicotine user cigarettes Packs smoked per day: 1 Course 2 Vital Signs: Vital signs: Vital Signs Temperature 98.1 F 12/10/23 05:39 Pulse Rate 59 L 12/10/23 07:18 Respiratory Rate 16 12/10/23 07:18 Blood Pressure 131/88 12/10/23 07:18 Pulse Oximetry 99 12/10/23 07:18 Oxygen Delivery Me thod Room Air 12/10/23 07:18 MDM - Abdominal Pain Medical Decision Making Physical exam completed document I will obtain a CBC and CMP as well as urinalysis and urine drug screen. I have discussed the patient's case with the on-coming physician <Dr. Panda > and they have assumed care of the patient. We have discussed the current lab/radiographic results that have been resulted and the pending tests. Care assumed at change of shift labs reviewed. No leukocytosis repeat examination patient does have some mild decrease in dorsiflexion of the left foot sensation slightly decreased this is consistent with the pain problems he had prior to surgery. His wound does not look to be dehisced infected or inflamed in any way. He does not have any red flag symptoms. Discharge patient home steroid taper tizanidine diclofenac have him follow-up with his surgeon on Tuesday. Lab Data 12/10/23 05:46 12/10/23 05:46 Labs/Radiology: Laboratory Results WBC 5.71 10^3/uL (3.29-11.43) 12/10/23 05:46 RBC 4.66 10^6/uL (3.85-5.65) 12/10/23 05:46 Hgb 15.60 g/dL (11.27-16.99) 12/10/23 05:46 Hct 46.7 % (37-53) 12/10/23 05:46 MCV 100.2 fl (82-101) 12/10/23 05:46 MCH 33.5 pg (27-33) H 12/10/23 05:46 MCHC 33.4 g/dL (30-55) 12/10/23 05:46 RDW 12.7 % (12.1-15.1) 12/10/23 05:46 Plt Count 280 10^3/cmm (157-399) 12/10/23 05:46 MPV 9.4 fL (7.4-10.4) 12/10/23 05:46 Neut % (Auto) 37.5 % 12/10/23 05:46 Lymph % (Auto) 39.2 % 12/10/23 05:46 [place] % (Auto) 14.9 % 12/10/23 05:46 Eos % (Auto) 7.0 % 12/10/23 05:46 Baso % (Auto) 1.2 % 12/10/23 05:46 Neut # (Auto) 2.14 10^3/uL (1.8-7.7) 12/10/23 05:46 Lymph # (Auto) 2.2 10^3/uL (0.8-4.8) 12/10/23 05:46 [place] # (Auto) 0.9 10^3/uL (0.2-0.9) 12/10/23 05:46 Eos # (Auto) 0.4 10^3/uL (0.0-0.8) 12/10/23 05:46 Baso # (Auto) 0.1 10^3/uL (0.0-0.1) 12/10/23 05:46 Nucleated RBC % (auto) 0 % 12/10/23 05:46 Nucleated RBCs # 0.0 /100WBC 12/10/23 05:46 Sodium 137 mmol/L (136-145) 12/10/23 05:46 Potassium 4.2 mmol/L (3.5-5.1) 12/10/23 05:46 Chloride 101 mmol/L (98-107) 12/10/23 05:46 Carbon Dioxide 25 mmol/L (22-29) 12/10/23 05:46 Anion Gap 15.2 (5-19) 12/10/23 05:46 BUN 18 mg/dL (6-20) 12/10/23 05:46 Creatinine 0.7 mg/dL (0.7-1.2) 12/10/23 05:46 GFR Calculation 119.9 mL/min (90-130) 12/10/23 05:46 Glucose 108 mg/dL (65-115) 12/10/23 05:46 Calculated Osmolality 286 mOsm/kg (285-295) 12/10/23 05:46 Calcium 9.0 mg/dL (8.5-10.5) 12/10/23 05:46 Total Bilirubin 0.2 mg/dL (0.15-1.2) 12/10/23 05:46 AST 18 U/L (0-40) 12/10/23 05:46 ALT 10 U/L (0-41) 12/10/23 05:46 Alkaline Phosphatase 117 U/L (40-130) 12/10/23 05:46 Total Protein 8.1 g/dL (6.6-8.7) 12/10/23 05:46 Albumin 4.4 g/dL (3.5-5.2) 12/10/23 05:46 Globulin 3.7 g/dL (1.3-4.6) 12/10/23 05:46 Urine Color Yellow (Yellow) 12/10/23 06:40 Urine Appearance Clear (CLEAR) 12/10/23 06:40 Urine pH 6 (5-7) 12/10/23 06:40 Ur Specific [place] 1.020 (1.005-1.030) 12/10/23 06:40 Urine Protein Neg (Negative) 12/10/23 06:40 Urine Glucose (UA) Norm (Normal) 12/10/23 06:40 Urine Ketones Negative (Negative) 12/10/23 06:40 Urine Blood Neg (Negative) 12/10/23 06:40 Urine Nitrate Negative (Negative) 12/10/23 06:40 Urine Bilirubin Neg (Negative) 12/10/23 06:40 Urine Urobilinogen Norm mg/dL (Negative) 12/10/23 06:40 Ur Leukocyte Esterase Negative (Negative) 12/10/23 06:40 Urine Opiates Screen Negative ng/mL (Negative) 12/10/23 06:40 Ur Barbiturates Screen Negative ng/mL (Negative) 12/10/23 06:40 Ur Phencyclidine Scrn Negative ng/mL (Negative) 12/10/23 06:40 Ur Amphetamines Screen Positive ng/mL (Negative) H 12/10/23 06:40 U Benzodiazepines Scrn Negative ng/mL (Negative) 12/10/23 06:40 Urine Cocaine Screen Negative ng/mL (Negative) 12/10/23 06:40 U Marijuana (THC) Screen Negative ng/mL (Negative) 12/10/23 06:40 Discharge Plan Discharge Patient Disposition: Home Clinical Impression: Low back pain radiating to left lower extremity Condition: Stable Prescriptions: New tizanidine 4 mg tablet 4 mg PO Q6H PRN (Reason: muscle spasticity) Qty: 20 0RF Rx Instructions: do not exceed 3 doses per 24 hrs prednisone 20 mg tablet 20 mg PO TID Qty: 15 0RF Rx Instructions: 1 p.o. 3 times daily x3 days, 1 p.o. twice daily x2 days, 1 p.o. daily x2 days diclofenac sodium 75 mg tablet,delayed release (DR/EC) 75 mg PO Q12H PRN (Reason: pain) Qty: 20 0RF Discontinued ketorolac 10 mg tablet 10 mg PO TID PRN (Reason: pain) Qty: 10 0RF naproxen 500 mg tablet 500 mg PO BID PRN (Reason: pain) Qty: 20 0RF No Action multivitamin with folic acid [Thera] 400 mcg tablet 1 tab PO DAILY Patient Comments: pt stated no money for this med duloxetine [Cymbalta] 60 mg capsule,delayed release(DR/EC) 120 mg PO DAILY Qty: 60 1RF olanzapine 10 mg tablet 20 mg PO BEDTIME Qty: 60 1RF hydroxyzine HCl 50 mg tablet 50 mg PO .HS Qty: 30 1RF Mavyret 100-40 mg tablet 3 tab PO DAILY 56 Days Qty: 84 1RF Rx Instructions: must administer with a meal/food Discharge Orders: Discharge ED (Routine); Ordered 12/10/23 Ordered By: Luis Panda Referrals: Michelle Ross MD [Primary Care Provider] - Discharge Diet: Usual diet Discharge Activity: Resume usual activity Patient Instructions: Opioid Safety, Pain Management Activity Restrictions/Additional Instructions: Thank you for choosing [facility] for your healthcare needs today. Please realize this is an emergency room and that we are providing you with a medical screening exam and this may not be complete and all inclusive of all the testing and or work up that you may need to determine your ailment or severity of your illness. It is very important that you follow up as instructed or that you return to the Emergency Department should you have concerns or if your condition changes or worsens in any way. You were seen today for low back pain. Recommend you follow-up with your back surgeon on Tuesday. You can start oral steroids use the anti-inflammatories and muscle relaxers as needed. You were given a prescription for diclofenac do not take Naprosyn or ketorolac with the diclofenac. Sign Out Sign Out Data: Patient Sign Out occurred on 12/10/23 at 05:58. Patient's care was discussed, and care was transferred from Pablito Juares MD to Luis Panda DO. Coding Level of Care Code ED Polysomnography Technician for Justin Sadler
[2023-12-10 05:53] LABS: Basophils # 0.1 10^3/uL (0.0-0.1); Basophils % 1.2 %; Eosinophils # 0.4 10^3/uL (0.0-0.8); Hematocrit 46.7 % (37-53); Lymphocytes # 2.2 10^3/uL (0.8-4.8); Lymphocytes % 39.2 %; Mean Corpuscular HGB Conc 33.4 g/dL (30-55); Mean Corpuscular Hemoglobin 33.5 pg (27-33); Mean Corpuscular Volume 100.2 fl (82-101); Mean Platelet Volume 9.4 fL (7.4-10.4); Monocytes # 0.9 10^3/uL (0.2-0.9); Monocytes % 14.9 %; Neutrophils # 2.14 10^3/uL (1.8-7.7); Neutrophils % 37.5 %; Nucleated Red Blood Cells % 0 %; Platelet Count 280 10^3/cmm (157-399); Red Blood Count 4.66 10^6/uL (3.85-5.65); Red Cell Distribution Width 12.7 % (12.1-15.1); White Blood Count 5.71 10^3/uL (3.29-11.43)
[2023-12-10 06:19] LABS: Alanine Aminotransferase 10 U/L (0-41); Albumin Level 4.4 g/dL (3.5-5.2); Alkaline Phosphatase 117 U/L (40-130); Anion Gap 15.2 (5-19); Aspartate Amino Transferase 18 U/L (0-40); Blood Urea Nitrogen 18 mg/dL (6-20); Carbon Dioxide 25 mmol/L (22-29); Chloride 101 mmol/L (98-107); Globulin 3.7 g/dL (1.3-4.6); Glomerular Filtration Rate 119.9 mL/min (90-130); Glucose 108 mg/dL (65-115); Osmolality Calculated 286 mOsm/kg (285-295); Potassium 4.2 mmol/L (3.5-5.1); Sodium 137 mmol/L (136-145); Total Bilirubin 0.2 mg/dL (0.15-1.2); Total Protein 8.1 g/dL (6.6-8.7)
[2023-12-10] MEDS: sodium chloride 0.9% 1,000 ML 999 ML IV (06:43)
[2023-12-10] MEDS: ketorolac 30 mg/mL INJ IVP (06:44)
[2023-12-10 06:47] LABS: Add Urine Microscopic? NO; Charge for UA Resulting for Rev
[2023-12-10 06:49] LABS: Urine Appearance Clear (CLEAR); Urine Color Yellow (Yellow)
[2023-12-10 06:50] LABS: Bilirubin Urine Neg (Negative); Blood Urine Neg (Negative); Glucose Urine UA Norm (Normal); Ketones Urine Negative (Negative); Leukocyte Esterase Urine Negative (Negative); Nitrate Urine Negative (Negative); Protein Urine Neg (Negative); Urobilinogen Urine Norm (Negative); pH Urine 6 (5-7)
[2023-12-10 06:59] LABS: Amphetamines Screen Urine Positive (Negative); Barbiturates Screen Urine Negative (Negative); Benzodiazepines Screen Urine Negative (Negative); Cocaine Screen Urine Negative (Negative); Opiate Screen Urine Negative (Negative); PCP Screen Urine Negative (Negative); THC Screen Urine Negative (Negative)
[2023-12-10 07:18] VITALS: BP 131/88; PULSE 59; RESP 16; O2SAT 99
== END 2023-12-10 07:45 | disposition home or self-care (01) ==
PROVIDERS: Internal Medicine; Emergency Provider Family Medicine; PCP Family Medicine
DX: M54.50 Low back pain, unspecified (principal); F17.210 Nicotine dependence, cigarettes, uncomplicated
CPT/HCPCS: 80053; 80306; 81003; 85025; 96361; 96374; 99284; J1885; J7030

== ENCOUNTER → 2024-01-06 10:38 | Outpatient (BNVA) | payer MEDICAID, SELFPAY | PROVIDERS: PCP Family Medicine; Visit Provider Podiatrist Foot & Ankle Surgery | DX: M54.16 Radiculopathy, lumbar region; S92.812D Other fracture of left foot, subsequent encounter for fracture with routine healing; X58.XXXD Exposure to other specified factors, subsequent encounter | CPT/HCPCS: 99213 ==

== ENCOUNTER → 2024-01-19 08:43 | Outpatient (BNVA) | payer MEDICAID, SELFPAY | PROVIDERS: PCP Family Medicine; Visit Provider Podiatrist Foot & Ankle Surgery | DX: S92.812A Other fracture of left foot, initial encounter for closed fracture; X58.XXXA Exposure to other specified factors, initial encounter | CPT/HCPCS: 99213 ==

== ENCOUNTER → 2024-02-23 07:53 | Outpatient (BNVA) | payer MEDICAID, SELFPAY | PROVIDERS: PCP Family Medicine; Visit Provider Podiatrist Foot & Ankle Surgery | DX: S92.812A Other fracture of left foot, initial encounter for closed fracture; X58.XXXA Exposure to other specified factors, initial encounter | CPT/HCPCS: 99214 ==

== ENCOUNTER 2024-02-29 05:50 | Day surgery (SDC) | payer MEDICAID, SELFPAY ==
[2024-02-29] VITALS (7 sets, daily range): BP systolic 113–162; BP diastolic 75–86; PULSE 64–75; RESP 17–20; TEMP 36.1–36.6; O2SAT 98–100; BMI 25.1
--- NOTE | 2024-02-29 | XR_ITS ---
WS: [id number] C-ARM RADIOGRAPHS LEFT FOOT; 1 IMAGES HISTORY: YEMary Beth ZAPATA COMPARISON: LEFT foot radiograph 08/08/2023 Intraoperative imaging during foot procedure. XR/XR foot LT 2V [id number] IMPRESSION: Intraoperative imaging during procedure by podiatry.
[2024-02-29] MEDS: sodium chloride 0.9% 1,000 ML 30 ML IV (06:17)
[2024-02-29] MEDS: acetaminophen 1,000 MG/100 ML PIGGYBACK 400 MG IV (06:19)
[2024-02-29] MEDS: gabapentin 300 mg Capsule PO (06:20)
[2024-02-29] MEDS: sodium chloride 0.9% 1,000 ML 30 ML (06:25)
--- NOTE | 2024-02-29 06:43 | P.HPUD_ITS ---
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
[2024-02-29] MEDS: ceFAZolin 2,000 MG in sodium chloride 0.9% (plus) 50 ML 100 MG IV (06:59)
[2024-02-29] MEDS: BUPivacaine 0.5% INJ 30 mL INJECTION (07:25)
--- NOTE | 2024-02-29 07:28 | ANES.PREANE2 ---
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 Operation Date: 02/29/24 07:00 Proposed Procedures p Sesamoidectomy(Left) - Juan Foster DPM Familial anesthetic complications: none Was Beta Mitra taken within 24 hours: N/A Was Clonidine taken within 24 hours: N/A Last intake: Intake Last Liquid Date 02/28/24 Last Liquid Time 22:00 Last Solid Date 02/28/24 Last Solid Time 15:30 Social Alcohol and Tobacco Exam alert, oriented x 3 and regular rate & rhythm Airway Submandibular: within normal limits Cervical ROM: within normal limits Mallampati: Class II Dentition: chipped Hepatic Hepatitis (C) Neuropsych Anxiety, Bipolar and Depression Schizophrenia Anesthetic Plan ASA status: 3 Anesthesia: General Medications/Allergies Home Medications Medication Instructions Recorded Confirmed Last Taken Type duloxetine 60 mg capsule,delayed 120 mg (2 x 60 mg) PO DAILY #60 04/09/22 02/28/24 02/28/24 Rx release (Cymbalta) caps hydroxyzine HCl 50 mg tablet 50 mg PO .HS #30 tabs 04/09/22 02/28/24 02/28/24 Rx multivitamin with folic acid 400 1 tab PO DAILY 04/09/22 02/28/24 02/28/24 History mcg tablet (Thera) olanzapine 10 mg tablet 20 mg (2 x 10 mg) PO BEDTIME #60 04/09/22 02/28/24 02/28/24 Rx tabs diclofenac sodium 75 mg 75 mg PO Q12H PRN pain #20 tabs 12/10/23 02/28/24 02/23/24 Rx tablet,delayed release hydrocodone 5 mg-acetaminophen 325 1 tab PO Q6H PRN pain #16 tabs 02/29/24 Unknown Rx mg tablet Allergies Allergy/AdvReac Type Severity Reaction Status Date / Time No Known Allergies Allergy Verified 02/29/24 05:59 PFSH Anesthesia Medical History Other stimulant dependence, uncomplicated Alcohol dependence, uncomplicated Nicotine dependence, cigarettes, uncomplicated Bipolar disorder, current episode mixed, severe, with psychotic features Alcohol dependence, in remission Other stimulant dependence, in remission Social History Smoking and tobacco/nicotine status: current every day tobacco/nicotine user cigarettes Packs smoked per day: 1 Data Anesthesia Cardiac Studies: No Data to Display
--- NOTE | 2024-02-29 08:12 | W.PM.BPON ---
Date of procedure: 02/29/2024 Surgeon name: Dr. Juan Foster D.P.M. Wastewater Engineer(s) name(s): Robbi Procedure(s) performed: Excision fibular sesamoid left foot Description of findings: Nonunion left fibular sesamoid fracture Estimated blood loss: 2 cc Tourniquet time: 32 minutes Specimen(s) removed: Sesamoid left foot fibular Post-operative diagnosis: Nonunion left foot fibular sesamoid fracture
--- NOTE | 2024-02-29 09:39 | PM.OP ---
Operative Report Date of procedure: February 29, 2024 Pre-op diagnosis: Fibular sesamoid nonunion left foot Post-op diagnosis: Same Post-op findings: Nonunion fibular sesamoid left foot Procedure done: Left foot fibular sesamoid excision CPT 14804 Implants: None Pathology: Fibular sesamoid left foot Surgeon: Juan Foster DPM Signal System Testing Maintainer: Robbi Estimated blood loss: 2 cc 32 minutes Complications: None Findings: See above Procedure: Patient is a 48-year-old male that has a history of left fibular sesamoid fracture nonunion. The patient has had the aforementioned chief complaint for some time. Conservative treatment measures have been attempted and the patient has opted for surgical intervention at this time. A lengthy discussion regarding the procedure, including risks and complications has been had with the patient and is noted in the recent clinic note. Written and verbal consent have been obtained. All patient questions have been answered to the patient?s satisfaction. No written or verbal guarantees have been given or implied. The patient has been NPO since midnight. The history has been reviewed and the history and physical is current. The signed consent was confirmed and placed in the patient chart. Patient imaging has been reviewed and is consistent with the diagnosis. Under mild sedation, the patient was brought into the operating room and placed on the table in the supine position. IV antibiotics were given by the anesthesia team as preoperative surgical prophylaxis. IV sedation was then performed by the anesthesiateam. A pneumatic tourniquet was then placed about the left ankle. A local field block was performed using 0.5% Marcaine plain. The operative extremity was then prepped and draped in the usual fashion. The extremity was then elevated and exsanguinated before the tourniquet was inflated to 250 mmHg. After inflation, the following procedure was then performed. Attention was directed to the plantar aspect of the left foot where under fluoroscopy the fibular sesamoid was triangulated. Next a #15 blade was used to make a 3 cm incision on the plantar aspect of the foot overlying the fibular sesamoid. Dissection was carried down through subcutaneous the superficial fascia to the level of the fibular sesamoid. Care was taken to preserve adjacent neurovascular structures as well as the flexor hallucis longus tendon. Using a #15 blade sharp dissection was carried out circumferentially around the fibular sesamoid. It was removed from the foot in 2 separate pieces at the level of the fracture nonunion. After resection of the fibular sesamoid, the site was inspected and no residual bone fragments remained. This was confirmed with C-arm imaging. 4-0 Vicryl was used to reapproximate deep soft tissues after irrigation with copious nonsterile saline. Next, skin was closed with 3-0 nylon in horizontal mattress fashion. Tourniquet was let down good hyperemic response was noted all digits of the left foot. The incision site was dressed with Xeroform, 4 x 4 gauze, Kerlix, Willian. Patient was placed in a cam boot. The patient tolerated the procedure and anesthesia well and without complication. The patient was transported from the operating room to the recovery room with vital signs stable and vascular status intact to all digits of the left foot. The patient was given both written and verbal instructions to remain heel weightbearing in cam boot to the operative extremity, to keep dressings/splint clean, dry and intact and to take pain medication as directed. The patient will follow-up in the outpatient setting at their scheduled appointment. The patient was discharged with my personal number and was instructed to call if any questions or issues should arise. They were discharged home once anesthesia criteria was met.
--- NOTE | 2024-02-29 14:50 | ANE.PACU2 ---
Inpatient post-anesthesia follow up: Airway intact: Yes Vital signs: Temperature 97.8 F Pulse Rate 65 Respiratory Rate 17 Blood Pressure 162/78 Pulse Oximetry 100 Oxygen Delivery Me thod Room Air Oxygen Flow Rate 8 Fraction of Inspir ed Oxygen Hydration adequate: Yes Nausea and vomiting: No Pain level: 2 Mental status: Baseline
== END 2024-02-29 08:51 | disposition home or self-care (01) ==
PROVIDERS: PCP Family Medicine; Visit Provider Podiatrist Foot & Ankle Surgery
PROC: (CPT 28315; principal; 2024-02-29 07:00)
DX: S92.812A Other fracture of left foot, initial encounter for closed fracture (principal); X58.XXXA Exposure to other specified factors, initial encounter; B19.20 Unspecified viral hepatitis C without hepatic coma; F17.210 Nicotine dependence, cigarettes, uncomplicated
CPT/HCPCS: 28315; 73620; 76000; 88307; 88311; J0131; J0690; J2250; J2704; J3490; J7030

== ENCOUNTER → 2024-03-14 13:44 | Outpatient (BNVA) | payer MEDICAID, SELFPAY | PROVIDERS: PCP Family Medicine; Visit Provider Podiatrist Foot & Ankle Surgery | DX: S92.812A Other fracture of left foot, initial encounter for closed fracture; X58.XXXA Exposure to other specified factors, initial encounter | CPT/HCPCS: 73630; 99024 ==

== ENCOUNTER → 2024-03-21 14:13 | Outpatient (BNVA) | payer MEDICAID, SELFPAY | PROVIDERS: PCP Family Medicine; Visit Provider Podiatrist Foot & Ankle Surgery | DX: L97.522 Non-pressure chronic ulcer of other part of left foot with fat layer exposed; S92.812S Other fracture of left foot, sequela; X58.XXXS Exposure to other specified factors, sequela; Z91.199 Patient's noncompliance with other medical treatment and regimen due to unspecified reason | CPT/HCPCS: 99024 ==

== ENCOUNTER → 2024-03-28 14:22 | Outpatient (BNVA) | payer MEDICAID, SELFPAY | PROVIDERS: PCP Family Medicine; Visit Provider Podiatrist Foot & Ankle Surgery | DX: L97.522 Non-pressure chronic ulcer of other part of left foot with fat layer exposed; S92.812S Other fracture of left foot, sequela; X58.XXXS Exposure to other specified factors, sequela; Z91.199 Patient's noncompliance with other medical treatment and regimen due to unspecified reason | CPT/HCPCS: 99024 ==

== ENCOUNTER → 2024-04-04 14:15 | Outpatient (BNVA) | payer MEDICAID, SELFPAY | PROVIDERS: PCP Family Medicine; Visit Provider Podiatrist Foot & Ankle Surgery | DX: Z98.890 Other specified postprocedural states (principal); S92.812D Other fracture of left foot, subsequent encounter for fracture with routine healing; X58.XXXD Exposure to other specified factors, subsequent encounter | CPT/HCPCS: 99024 ==

== ENCOUNTER 2024-04-11 14:10 | Outpatient (CLI) | payer MEDICAID, SELFPAY ==
--- NOTE | 2024-04-11 14:16 | XR_ITS ---
WS: [id number] Exam: XR lumbar spine 6V w f/e [id number] Date/Time of Exam: 04/11/2024 2:25 PM Reason For Exam: DEGENERATIVE LUMBAR SPINAL STENOSIS Comparison 11/10/2021. No fracture or dislocation. L4 and L5 laminectomies. Disc spaces are preserved. Posterior elements ar e intact. Minimal spondylosis. No flexion or extension instability. Wire coils are noted over the LEF T pelvic region. Significance is undetermined. XR/XR lumbar spine 6V w f/e [id number] IMPRESSION: 1. No flexion or extension instability. 2. L4 and L5 laminectomy defects. Minimal degenerative changes.
--- NOTE | 2024-04-11 14:18 | XR_ITS ---
WS: [email or web address] Exam: XR cervical spine 3V* [id number] Date/Time of Exam: 04/11/2024 2:25 PM Reason For Exam: NECK PAIN No acute fracture or dislocation. There is straightening. Slight spondylosis from C4-C7. Posterior el ements are intact. Normal paraspinal soft tissues. The odontoid is intact. XR/XR cervical spine 3V* [id number] IMPRESSION: 1. No fracture or malalignment. 2. Minimal degenerative changes. Straightening.
== END 2024-04-11 14:11 | disposition home or self-care (01) ==
LOC: RAD 14:14
PROVIDERS: PCP Family Medicine; Visit Provider Nurse Practitioner Family
DX: M48.061 Spinal stenosis, lumbar region without neurogenic claudication (principal); Z98.890 Other specified postprocedural states; Z51.89 Encounter for other specified aftercare; S92.812D Other fracture of left foot, subsequent encounter for fracture with routine healing; X58.XXXD Exposure to other specified factors, subsequent encounter
CPT/HCPCS: 72040; 72114; 99024

== ENCOUNTER → 2024-04-26 14:34 | Outpatient (BNVA) | payer MEDICAID, SELFPAY | PROVIDERS: PCP Family Medicine; Visit Provider Podiatrist Foot & Ankle Surgery | DX: Z98.890 Other specified postprocedural states (principal) | CPT/HCPCS: 99024 ==

== ENCOUNTER 2024-05-17 15:44 | Emergency (ER) | payer MEDICAID, SELFPAY ==
[2024-05-17 15:52] VITALS: BP 128/82; PULSE 106; RESP 16; O2SAT 95; BMI 27.8
--- NOTE | 2024-05-17 15:59 | USR_ITS ---
PROCEDURE INFORMATION: Exam: US Scrotum Exam date and time: 05/17/2024 4:12 PM Age: 49 years old Clinical indication: Scrotum pain; Additional info: Ltesticle pain TECHNIQUE: Imaging protocol: Real-time ultrasound of the scrotum and contents with color Doppler and image documentation. COMPARISON: US abdomen limited [id number] 12/26/2018 7:30 AM FINDINGS: Right testicle: The right testicle measures 1.9 x 3.4 x 1.7 cm in size. Testicular echogenicity is normal. There is normal duplex and color Doppler blood flow to the right testicle. There is a small right hydrocele. The right epididymis is enlarged with slight increase in color Doppler blood flow suggesting epididymitis. There are varicosities extending into the right inguinal canal. Left testicle: The left testicle measures 3.4 x 2.3 x 1.9 cm in size. There is an inhomogeneous focus of decreased echogenicity involving the left testicle measuring a proximally 12 x 16 x 8 mm in size. There is internal vascularity. This focus of decreased echogenicity is not well-defined. This could represent a focal area of infection/inflammation or could represent tumor. The left epididymis is slightly enlarged with slight increase in vascularity suggesting a degree of epididymitis. There is a small left hydrocele. There is a left-sided varicocele. Extratesticular spaces: No significant hydroceles. Scrotum/soft tissues: Normal. US/US scrotum [id number] IMPRESSION: 1. Findings suggest bilateral epididymitis. 2. Focal area of decreased echogenicity involving the left testicle. Differential considerations would include focal area of infection/inflammation versus tumor. Recommend urologic referral for further appropriate workup/follow-up. 3. Small bilateral hydroceles. 4. Left-sided varicocele.
--- NOTE | 2024-05-17 16:00 | ED_ITS ---
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 He states that have fluid drained off his left testicle in the past. States he has been having worsening pain lately states mainly in that left testicle is worse to touch she denies any vomiting denies any diarrhea denies any dysuria Associated symptoms: Deny chest pain, dyspnea, headache(s), nausea, rash or vomiting Review of Systems 2 Const: Denies: fever(s), chills, body aches or change in appetite ENMT: Denies: throat pain or dental pain Card: Denies: chest pain Resp: Denies: dyspnea GI: Denies: abdominal pain, nausea, vomiting or diarrhea : Reports: testicular pain; Denies: dysuria Musc: Reports: back pain; Denies: neck pain Skin/Breast: Denies: rash Neuro: Denies: headache(s) PFSH ED 2 PFSH: Medical History Other stimulant dependence, uncomplicated Alcohol dependence, uncomplicated Nicotine dependence, cigarettes, uncomplicated Bipolar disorder, current episode mixed, severe, with psychotic features Alcohol dependence, in remission Other stimulant dependence, in remission Social History Smoking and tobacco/nicotine status: current every day tobacco/nicotine user cigarettes Packs smoked per day: 1 Physical Exam 2 Const: COMMON NORMALS: no acute distress, patient oriented x3 and healthy appearing HENMT: COMMON NORMALS: normocephalic and atraumatic HEAD & SCALP: n ormocephalic and atraumatic Eye: COMMON NORMALS: conjunctivae normal CONJUNCTIVA: Yes conjunctivae normal Neck/C-Spine: COMMON NORMALS: full ROM and supple Chest: COMMONS NORMALS: normal inspection of the chest Resp: COMMON NORMALS: normal respiratory effort, No retractions, No use of accessory muscles and clear to auscultation bilaterally AUSCULTATION: clear to auscultation bilaterally Cardio: COMMON NORMALS: regular rate, regular rhythm and No murmurs present (Cardio) RATE: regular rate RHYTHM: regular rhythm GI: COMMON NORMALS: Normal to inspection, nondistended, normoactive bowel sounds present, Soft to palpation, non-tender and no masses PALPATION: Yes Soft to palpation : OTHER: Slight tenderness left testicle no obvious deformity Extremity: COMMON NORMALS: normal to inspection and full ROM Neuro: COMMON NORMALS: patient oriented x3, moves all extremities and no focal motor deficits Psych: COMMON NORMALS: mental status grossly normal, Normal thought process present and cooperative THOUGHT PROCESS: Normal thought process present Skin: COMMON NORMALS: no rashes or lesions noted and no wounds GENERAL SKIN EXAM: no rashes or lesions noted Course 2 Vital Signs: Vital signs: Vital Signs Pulse Rate 106 H 05/17/24 15:52 Respiratory Rate 16 05/17/24 15:52 Blood Pressure 128/82 05/17/24 15:52 Pulse Oximetry 95 05/17/24 15:52 Oxygen Delivery Me thod Room Air 05/17/24 15:52 MDM - General Adult Medical Decision Making Patient presents for testicle pain ultrasound showed likely epididymitis with a hydrocele we will start him on antibiotics we will give him pain meds with him follow-up with urology he is return if worsening Medical Records I reviewed the patient's medical records. Lab Data I reviewed the patient's lab results. 05/17/24 16:36 05/17/24 16:36 Laboratory Results WBC 6.81 10^3/uL (3.29-11.43) 05/17/24 16:36 RBC 4.45 10^6/uL (3.85-5.65) 05/17/24 16:36 Hgb 14.60 g/dL (11.27-16.99) 05/17/24 16:36 Hct 43.2 % (37-53) 05/17/24 16:36 MCV 97.1 fl (82-101) 05/17/24 16:36 MCH 32.8 pg (27-33) 05/17/24 16:36 MCHC 33.8 g/dL (30-55) 05/17/24 16:36 RDW 11.9 % (12.1-15.1) L 05/17/24 16:36 Plt Count 228 10^3/cmm (157-399) 05/17/24 16:36 MPV 9.7 fL (7.4-10.4) 05/17/24 16:36 Neut % (Auto) 43.6 % 05/17/24 16:36 Lymph % (Auto) 38.3 % 05/17/24 16:36 [place] % (Auto) 11.0 % 05/17/24 16:36 Eos % (Auto) 5.3 % 05/17/24 16:36 Baso % (Auto) 1.5 % 05/17/24 16:36 Neut # (Auto) 2.97 10^3/uL (1.8-7.7) 05/17/24 16:36 Lymph # (Auto) 2.6 10^3/uL (0.8-4.8) 05/17/24 16:36 [place] # (Auto) 0.8 10^3/uL (0.2-0.9) 05/17/24 16:36 Eos # (Auto) 0.4 10^3/uL (0.0-0.8) 05/17/24 16:36 Baso # (Auto) 0.1 10^3/uL (0.0-0.1) 05/17/24 16:36 Nucleated RBC % (auto) 0 % 05/17/24 16:36 Nucleated RBCs # 0.0 /100WBC 05/17/24 16:36 Sodium 145 mmol/L (136-145) 05/17/24 16:36 Potassium 3.7 mmol/L (3.5-5.1) 05/17/24 16:36 Chloride 109 mmol/L (98-107) H 05/17/24 16:36 Carbon Dioxide 20 mmol/L (22-29) L 05/17/24 16:36 Anion Gap 19.7 (5-19) H 05/17/24 16:36 BUN 12 mg/dL (6-20) 05/17/24 16:36 Creatinine 0.8 mg/dL (0.7-1.2) 05/17/24 16:36 GFR Calculation 102.3 mL/min (90-130) 05/17/24 16:36 Glucose 96 mg/dL (65-115) 05/17/24 16:36 Calculated Osmolality 300 mOsm/kg (285-295) H 05/17/24 16:36 Calcium 9.3 mg/dL (8.5-10.5) 05/17/24 16:36 Total Bilirubin 0.2 mg/dL (0.15-1.2) 05/17/24 16:36 AST 15 U/L (0-40) 05/17/24 16:36 ALT 15 U/L (0-41) 05/17/24 16:36 Alkaline Phosphatase 84 U/L (40-130) 05/17/24 16:36 Total Protein 7.7 g/dL (6.6-8.7) 05/17/24 16:36 Albumin 4.7 g/dL (3.5-5.2) 05/17/24 16:36 Globulin 3.0 g/dL (1.3-4.6) 05/17/24 16:36 Lipase 53 U/L (13-60) 05/17/24 16:36 Urine Color Yellow (Yellow) 05/17/24 17:34 Urine Appearance Clear (CLEAR) 05/17/24 17:34 Urine pH 5.5 (5-7) 05/17/24 17:34 Ur Specific [place] 1.002 (1.005-1.030) L 05/17/24 17:34 Urine Protein Negative (Negative) 05/17/24 17:34 Urine Glucose (UA) Negative (Normal) 05/17/24 17:34 Urine Ketones Negative (Negative) 05/17/24 17:34 Urine Blood Negative (Negative) 05/17/24 17:34 Urine Nitrate Negative (Negative) 05/17/24 17:34 Urine Bilirubin Negative (Negative) 05/17/24 17:34 Urine Urobilinogen 0.2 mg/dL (Negative) 05/17/24 17:34 Ur Leukocyte Esterase Negative (Negative) 05/17/24 17:34 Amorphous Sediment Not Reportable 05/17/24 17:34 All radiology interpretation(s) finalized by discharge Discharge Plan Discharge Patient Disposition: Home Clinical Impression: Epididymitis, Hydrocele Condition: Stable Prescriptions: New hydrocodone-acetaminophen 5-325 mg tablet 1 tab PO Q6H PRN (Reason: pain) Qty: 14 0RF doxycycline hyclate 100 mg tablet 100 mg PO BID 10 Days Qty: 20 0RF No Action multivitamin with folic acid [Thera] 400 mcg tablet 1 tab PO DAILY Patient Comments: pt stated no money for this med duloxetine [Cymbalta] 60 mg capsule,delayed release(DR/EC) 120 mg PO DAILY Qty: 60 1RF olanzapine 10 mg tablet 20 mg PO BEDTIME Qty: 60 1RF hydroxyzine HCl 50 mg tablet 50 mg PO .HS Qty: 30 1RF (DME) knee scooter See Rx Instructions .Route .MEDSUPPLY Qty: 1 0RF Rx Instructions: As directed diclofenac sodium 75 mg tablet,delayed release (DR/EC) 75 mg PO Q12H PRN (Reason: pain) Qty: 20 0RF Discharge Orders: Discharge ED (Routine); Ordered 05/17/24 Ordered By: Romario Ahmadi Referrals: Michelle Ross MD [Primary Care Provider] - Discharge Diet: Advance as tolerated Discharge Activity: Resume usual activity Patient Instructions: Epididymitis (ED), Opioid Safety Coding Level of Care Code ED Aggregate Conveyor Operator for Justin Sadler
[2024-05-17 16:48] LABS: Basophils # 0.1 10^3/uL (0.0-0.1); Basophils % 1.5 %; Eosinophils # 0.4 10^3/uL (0.0-0.8); Eosinophils % 5.3 %; Hematocrit 43.2 % (37-53); Lymphocytes # 2.6 10^3/uL (0.8-4.8); Lymphocytes % 38.3 %; Mean Corpuscular HGB Conc 33.8 g/dL (30-55); Mean Corpuscular Hemoglobin 32.8 pg (27-33); Mean Corpuscular Volume 97.1 fl (82-101); Mean Platelet Volume 9.7 fL (7.4-10.4); Monocytes # 0.8 10^3/uL (0.2-0.9); Neutrophils # 2.97 10^3/uL (1.8-7.7); Neutrophils % 43.6 %; Nucleated Red Blood Cells % 0 %; Platelet Count 228 10^3/cmm (157-399); Red Blood Count 4.45 10^6/uL (3.85-5.65); Red Cell Distribution Width 11.9 % (12.1-15.1); White Blood Count 6.81 10^3/uL (3.29-11.43)
[2024-05-17] MEDS: morphine 4 mg/mL SDV 1 mL IVP (16:50)
[2024-05-17] MEDS: ondansetron 2 mg/ML SDV 2 mL 4 MG IVP (16:50)
[2024-05-17 17:10] LABS: Alanine Aminotransferase 15 U/L (0-41); Albumin Level 4.7 g/dL (3.5-5.2); Alkaline Phosphatase 84 U/L (40-130); Anion Gap 19.7 (5-19); Aspartate Amino Transferase 15 U/L (0-40); Blood Urea Nitrogen 12 mg/dL (6-20); Calcium 9.3 mg/dL (8.5-10.5); Carbon Dioxide 20 mmol/L (22-29); Chloride 109 mmol/L (98-107); Creatinine Clr Calc Pharmacy 127.2925; Glomerular Filtration Rate 102.3 mL/min (90-130); Glucose 96 mg/dL (65-115); Lipase 53 U/L (13-60); Osmolality Calculated 300 mOsm/kg (285-295); Potassium 3.7 mmol/L (3.5-5.1); Sodium 145 mmol/L (136-145); Total Bilirubin 0.2 mg/dL (0.15-1.2); Total Protein 7.7 g/dL (6.6-8.7)
[2024-05-17 17:48] LABS: Charge for UA Resulting for Rev
[2024-05-17 18:00] LABS: Bilirubin Urine Negative (Negative); Blood Urine Negative (Negative); Glucose Urine UA Negative (Normal); Ketones Urine Negative (Negative); Leukocyte Esterase Urine Negative (Negative); Nitrate Urine Negative (Negative); Protein Urine Negative (Negative); Specific Gravity, Urine 1.002 (1.005-1.030); Urine Appearance Clear (CLEAR); Urine Color Yellow (Yellow); Urobilinogen Urine 0.2 mg/dL (Negative); pH Urine 5.5 (5-7)
[2024-05-17] MEDS: cefTRIAXone 250 MG in water for injection-sterile 0.9 ML IM (18:07)
[2024-05-17 18:22] VITALS: BP 125/81; PULSE 98; RESP 16; TEMP 36.8; O2SAT 97
--- NOTE | 2024-05-23 07:32 | DCPLANNER ---
Sent Referral for Urology to [facility]
== END 2024-05-17 18:21 | disposition home or self-care (01) ==
PROVIDERS: Emergency Provider Emergency Medicine; PCP Family Medicine
DX: N45.1 Epididymitis (principal); N43.3 Hydrocele, unspecified
CPT/HCPCS: 36415; 76870; 80053; 81003; 81015; 83690; 85025; 96372; 96374; 96375; 99285; J0696; J2270; J2405

== ENCOUNTER 2024-07-23 06:55 | Outpatient (CLI) | payer MEDICAID, SELFPAY ==
--- NOTE | 2024-07-23 07:21 | XR_ITS ---
WS: [id number] XR lumbar spine 6V w f/e [id number] REASON FOR EXAM: DEGENERATIVE LUMBAR SPINAL STENOSIS FINDINGS: Relatively normal lumbar spine curvatures. No significant vertebral body abnormality. Mild osteophytosis L1-L5. Disc spaces are intact and relatively well preserved. Previous laminectomy L5. No significant listhesis. Incidental note of previous left testicular vein embolization for varicocele. XR/XR lumbar spine 6V w f/e [id number] IMPRESSION: Postoperative lumbar spine with mild changes of degenerative spondylosis.
--- NOTE | 2024-07-23 07:21 | XR_ITS ---
WS: [id number] XR cervical spine 3V* [id number] REASON FOR EXAM: NECK PAIN FINDINGS: Anterior plate and screw fixation with interbody fusion devices C4-C7. The surgical appliances are intact and in proper position and alignment. The cervical spine is otherwise unremarkable. XR/XR cervical spine 3V* [id number] IMPRESSION: Unremarkable postoperative unremarkable anterior cervical fusion as above.
== END 2024-07-23 06:56 | disposition home or self-care (01) ==
LOC: RAD 06:58
PROVIDERS: PCP Family Medicine; Visit Provider Nurse Practitioner Family
DX: M48.061 Spinal stenosis, lumbar region without neurogenic claudication (principal); M43.22 Fusion of spine, cervical region
CPT/HCPCS: 72040; 72114

== ENCOUNTER 2024-07-30 17:45 | Emergency (ER) | payer MEDICAID, SELFPAY ==
[2024-07-30 17:56] VITALS: BP 131/84; PULSE 81; RESP 18; TEMP 36.8; O2SAT 99; BMI 29.9
--- NOTE | 2024-07-30 18:28 | W.ED.BACK ---
HPI - Back Pain/Injury General: Chief Complaint: Back Pain/Injury Stated Complaint: back and neck pain Time Seen by Provider: 07/30/24 17:54 Source: patient Mode of arrival: ambulatory Limitations: no limitations History of Present Illness: Patient is a 49-year-old male presenting to the emergency department complaining of chronic neck and back pain. He states he had a fusion/laminectomy performed last month in [place], he has had chronic back pain since. He does have primary care, states that he regularly follows up with them. When asked why he is here today, he states because he feels his leg is going out of him when he walks. He is also reporting neck pain status post ACDF, and comments to me that he is having both neck and back surgery again sometime next month, he did not specify further on this. He also notes that his back pain has been radiating into his scrotum, notes that he is set to see a urologist for epididymitis that was recently diagnosed via ultrasound in May. He did also have x-rays last week of his neck and back, both of which were negative. No new trauma or injuries reported since. No bowel or bladder incontinence, distal paralysis, or other concerning symptoms reported. He states he has been taking unspecified narcotic pain medication, but notes he has not been taking it recently because it makes him angry. MD elicited complaint: back pain Pertinent past history: back surgery Onset (ago): week(s) Timing: intermittent Severity: mild Similar Symptoms Previously: Yes Location: lumbar spine Radiation: groin Associated symptoms: Deny abdominal pain, chills, dysuria, fever(s), hematuria, nausea or vomiting Related Data Home Medications Medication Instructions Recorded Confirmed multivitamin with folic acid 400 1 tab PO DAILY 04/09/22 04/26/24 mcg tablet (Thera) Previous Rx's Medication Instructions Recorded duloxetine 60 mg capsule,delayed 120 mg (2 x 60 mg) PO DAILY #60 04/09/22 release (Cymbalta) caps hydroxyzine HCl 50 mg tablet 50 mg PO .HS #30 tabs 04/09/22 olanzapine 10 mg tablet 20 mg (2 x 10 mg) PO BEDTIME #60 04/09/22 tabs diclofenac sodium 75 mg 75 mg PO Q12H PRN pain #20 tabs 12/10/23 tablet,delayed release knee scooter #1 ea 02/29/24 hydrocodone 5 mg-acetaminophen 325 1 tab PO Q6H PRN pain #14 tabs 05/17/24 mg tablet Allergies Allergy/AdvReac Type Severity Reaction Status Date / Time No Known Allergies Allergy Verified 07/30/24 18:00 Review of Systems General: Reports: 10 or more systems reviewed and unremarkable except in HPI and below Const: Denies: fever(s) or chills Card: Denies: chest pain Resp: Denies: dyspnea or productive cough GI: Denies: abdominal pain, nausea, vomiting or diarrhea : Reports: testicular pain; Denies: flank pain, dysuria or hematuria Musc: Reports: neck pain and back pain; Denies: extremity pain, extremity swelling, joint pain, joint swelling, joint redness, joint warmth, limited range of motion or muscle weakness Skin/Breast: Denies: rash Neuro: Reports: lack of coordination ( Left leg giving out ); Denies: headache(s), numbness in extremities or weakness in extremities PFSH ED PFSH: Medical History Other stimulant dependence, uncomplicated Alcohol dependence, uncomplicated Nicotine dependence, cigarettes, uncomplicated Bipolar disorder, current episode mixed, severe, with psychotic features Alcohol dependence, in remission Other stimulant dependence, in remission Social History Smoking and tobacco/nicotine status: current every day tobacco/nicotine user cigarettes Packs smoked per day: 1 Physical Exam Const: COMMON NORMALS: no acute distress, patient oriented x3, no limitations, healthy appearing, alert and well nourished OTHER: Patient does not appear in any acute distress at time of examination HENMT: COMMON NORMALS: normocephalic and atraumatic HEAD & SCALP: normocephalic and atraumatic Neck/C-Spine: COMMON NORMALS: full ROM, supple and no meningeal signs CERVICAL SPINE: No pain with cervical ROM and No Cervical spine tenderness OTHER: Well-healed ACDF scar Resp: COMMON NORMALS: normal respiratory effort, No use of accessory muscles and clear to auscultation bilaterally AUSCULTATION: clear to auscultation bilaterally Cardio: COMMON NORMALS: regular rate and regular rhythm RATE: regular rate RHYTHM: regular rhythm Back/Pelvis: OTHER: Well-healed scar over lumbar spine, no paralumbar muscle tenderness or spasms, no spinous process tenderness. No signs of trauma. Extremity: COMMON NORMALS: normal to inspection, full ROM, capillary refill normal, no joint enlargement and no clubbing, cyanosis or edema Neuro: COMMON NORMALS: patient oriented x3, moves all extremities, no focal motor deficits and no sensory deficits noted SENSORIUM/ORIENTATION: Yes alert MENINGEAL SIGNS: Yes no meningeal signs Skin: COMMON NORMALS: no rashes or lesions noted GENERAL SKIN EXAM: no rashes or lesions noted Course Vital Signs: Vital signs: Vital Signs Temperature 98.2 F 07/30/24 17:56 Pulse Rate 81 07/30/24 17:56 Respiratory Rate 18 07/30/24 17:56 Blood Pressure 131/84 07/30/24 17:56 Pulse Oximetry 99 07/30/24 17:56 Oxygen Delivery Me thod Room Air 07/30/24 17:56 MDM - Back Pain/Injury Medical Decision Making Patient reported acute on chronic low back pain status post lumbar fusion laminectomy which she reported was a month ago. He also was having some neck pain. He had x-rays done of both of these areas last week, both of which were unremarkable and due to him not having any new trauma or incidents to report since then, imaging not required at this time. He states he was taken narcotic pain medications at home, but quit because it was making him angry. I gave him steroid shot, muscle laxer, and Toradol here, and was reporting relief prior to leaving before discharge paperwork was printed. The did state he had follow-ups coming up and during examination told him to keep these. No radiology studies performed this visit Discharge Plan Discharge Patient Disposition: Home Clinical Impression: Chronic neck pain Chronic low back pain Qualifiers: Back pain laterality: unspecified Sciatica presence: unspecified whether sciatica present Qualified Code(s): M54.50 - Low back pain, unspecified Condition: Stable Prescriptions: No Action multivitamin with folic acid [Thera] 400 mcg tablet 1 tab PO DAILY Patient Comments: pt stated no money for this med duloxetine [Cymbalta] 60 mg capsule,delayed release(DR/EC) 120 mg PO DAILY Qty: 60 1RF olanzapine 10 mg tablet 20 mg PO BEDTIME Qty: 60 1RF hydroxyzine HCl 50 mg tablet 50 mg PO .HS Qty: 30 1RF (DME) knee scooter See Rx Instructions .Route .MEDSUPPLY Qty: 1 0RF Rx Instructions: As directed diclofenac sodium 75 mg tablet,delayed release (DR/EC) 75 mg PO Q12H PRN (Reason: pain) Qty: 20 0RF hydrocodone-acetaminophen 5-325 mg tablet 1 tab PO Q6H PRN (Reason: pain) Qty: 14 0RF Discharge Orders: Discharge ED (Routine); Ordered 07/30/24 Ordered By: Juan Salas Referrals: Michelle Ross MD [Primary Care Provider] - Patient Instructions: Opioid Safety, Pain Management Activity Restrictions/Additional Instructions: Follow-up with primary care provider. Return with any new or worsening. Continue taking pain medications at home. Coding Level of Care Code ED Mortgage Loan Specialist for Justin Sadler
[2024-07-30] MEDS: orphenadrine 30 mg/mL Inj 2 mL 60 MG IM (18:39)
[2024-07-30] MEDS: ketorolac 60 mg/2 mL INJ IM (18:39)
[2024-07-30] MEDS: dexamethasone 10 mg/mL INJ IM (18:39)
== END 2024-07-30 18:58 | disposition home or self-care (01) ==
PROVIDERS: Emergency Provider Physician Assistant; PCP Family Medicine
DX: G89.29 Other chronic pain (principal); M54.2 Cervicalgia; M54.50 Low back pain, unspecified; F17.210 Nicotine dependence, cigarettes, uncomplicated
CPT/HCPCS: 96372; 99284; J1100; J1885; J2360

== ENCOUNTER 2024-08-21 11:00 | Outpatient (CLI) | payer MEDICAID, SELFPAY ==
--- NOTE | 2024-08-21 11:08 | XRR_ITS ---
PROCEDURE INFORMATION: Exam: XR Cervical Spine Exam date and time: 08/21/2024 11:14 AM Age: 49 years old Clinical indication: Neck pain; Prior surgery; Surgery date: 1-6 months; Surgery type: Cervical; Patient HX: Pain in the upper neck region after a fall yesterday. PT had neck surgery one month ago. ; Additional info: Arthrodesis TECHNIQUE: Imaging protocol: Radiologic exam of the cervical spine. Views: 2 or 3 views. COMPARISON: CR XR cervical spine 3V* [id number] 07/23/2024 7:53 AM FINDINGS: Bones/joints: Surgical hardware in the spine similar to prior exam. Soft tissues: Unremarkable. XR/XR cervical spine 3V* [id number] IMPRESSION: Surgical hardware in the spine similar to prior exam.
== END 2024-08-21 11:01 | disposition home or self-care (01) ==
LOC: RAD 11:02
PROVIDERS: PCP Family Medicine; Visit Provider Nurse Practitioner Family
DX: Z98.1 Arthrodesis status (principal); W19.XXXA Unspecified fall, initial encounter
CPT/HCPCS: 72040

== ENCOUNTER 2024-09-12 17:44 | Emergency (ER) | payer MEDICAID, SELFPAY ==
[2024-09-12 17:49] VITALS: BP 131/83; PULSE 101; TEMP 36.7; O2SAT 98; BMI 28.8
--- NOTE | 2024-09-12 18:00 | XRR_ITS ---
PROCEDURE INFORMATION: Exam: XR Cervical Spine Exam date and time: 09/12/2024 6:31 PM Age: 49 years old Clinical indication: Pain and injury or trauma; Other: Fall onto neck; Cervicalgia and neck pain; Prior surgery; Surgery date: 6+ months; Surgery type: Cervical fusion; Additional info: Pain x2 weeks S/P surgery TECHNIQUE: Imaging protocol: Radiologic exam of the cervical spine. Views: 2 or 3 views. COMPARISON: CR XR cervical spine 3V* [id number] 08/21/2024 11:14 AM FINDINGS: Tubes, catheters and devices: Hardware appears intact. There is no perihardware lucency. Bones/joints: Alignment is preserved. Postsurgical changes related to anterior fusion from C4, C5, C6 and C7. There are intervertebral disc space spacers. No obvious acute osseous abnormality for any gross displaced fractures, however cannot rule out underlying subtle fractures on radiograph images. Consider cross-sectional imaging if there is continued clinical concern. Soft tissues: Unremarkable. XR/XR cervical spine 3V* [id number] IMPRESSION: As above.
[2024-09-12 18:10] VITALS: BP 129/79; PULSE 90; RESP 16; O2SAT 98
--- NOTE | 2024-09-12 18:45 | W.ED.NECK ---
HPI - Neck Pain/Injury General: Chief Complaint: Neck Pain/Injury Stated Complaint: neck pain, injury 2 wks ago Time Seen by Provider: 09/12/24 17:56 Source: patient Mode of arrival: ambulatory Limitations: no limitations History of Present Illness: Patient is a 49-year-old male who presents to the emergency department complaining of neck pain chronically but worsening over the past couple of weeks. He had surgery 2 months ago, had a cervical fusion, states he bumped it a couple weeks ago and has been severely worsens then. Pain worse with lateral rotation of the neck. Denies any neurological symptoms or fevers. States he has not been taking anything for pain other than muscle relaxers which do not help very much. Pain reported to be primarily to the left paracervical muscles. MD complaint: neck pain Onset (ago): week(s) Place: home Radiation: left lateral Severity: moderate, constant and similar to prior neck pain Duration: constant Exacerbating factors: movement of neck Context: other (Surgery 2 months ago) Associated symptoms: Denies headache(s) or nausea Treatments prior to arrival: other (Muscle relaxer) Related Data Home Medications Medication Instructions Recorded Confirmed multivitamin with folic acid 400 1 tab PO DAILY 04/09/22 04/26/24 mcg tablet (Thera) Previous Rx's Medication Instructions Recorded duloxetine 60 mg capsule,delayed 120 mg (2 x 60 mg) PO DAILY #60 04/09/22 release (Cymbalta) caps hydroxyzine HCl 50 mg tablet 50 mg PO .HS #30 tabs 04/09/22 olanzapine 10 mg tablet 20 mg (2 x 10 mg) PO BEDTIME #60 04/09/22 tabs diclofenac sodium 75 mg 75 mg PO Q12H PRN pain #20 tabs 12/10/23 tablet,delayed release knee scooter #1 ea 02/29/24 hydrocodone 5 mg-acetaminophen 325 1 tab PO Q6H PRN pain #14 tabs 05/17/24 mg tablet Allergies Allergy/AdvReac Type Severity Reaction Status Date / Time No Known Allergies Allergy Verified 09/12/24 17:55 Review of Systems General: Reports: 10 or more systems reviewed and unremarkable except in HPI and below Const: Denies: fever(s) or chills Card: Denies: chest pain Resp: Denies: dyspnea or productive cough GI: Denies: abdominal pain, nausea, vomiting or diarrhea : Denies: flank pain Musc: Reports: neck pain; Denies: back pain, extremity pain, extremity swelling, joint pain, joint swelling, joint redness, joint warmth, limited range of motion or muscle weakness Skin/Breast: Denies: rash Neuro: Denies: headache(s), numbness in extremities or weakness in extremities PFSH ED PFSH: Medical History Other stimulant dependence, uncomplicated Alcohol dependence, uncomplicated Nicotine dependence, cigarettes, uncomplicated Bipolar disorder, current episode mixed, severe, with psychotic features Alcohol dependence, in remission Other stimulant dependence, in remission Social History Smoking and tobacco/nicotine status: current every day tobacco/nicotine user cigarettes Packs smoked per day: 1 Physical Exam Const: COMMON NORMALS: no acute distress, patient oriented x3, no limitations, healthy appearing, alert and well nourished HENMT: COMMON NORMALS: normocephalic and atraumatic HEAD & SCALP: normocephalic and atraumatic Neck/C-Spine: COMMON NORMALS: full ROM, supple and no meningeal signs OTHER: Postoperative ACDF scar appearing well healed. There is reproducible tenderness to palpation to the left lateral neck/proximal trapezius muscle. No spinous process tenderness. Stiffness with range of motion at the neck Resp: COMMON NORMALS: normal respiratory effort, No use of accessory muscles and clear to auscultation bilaterally AUSCULTATION: clear to auscultation bilaterally Cardio: COMMON NORMALS: regular rate and regular rhythm RATE: regular rate RHYTHM: regular rhythm Extremity: COMMON NORMALS: normal to inspection, full ROM, capillary refill normal, no joint enlargement and no clubbing, cyanosis or edema Neuro: COMMON NORMALS: patient oriented x3, moves all extremities, no focal motor deficits and no sensory deficits noted SENSORIUM/ORIENTATION: Yes alert MENINGEAL SIGNS: Yes no meningeal signs Skin: COMMON NORMALS: no rashes or lesions noted GENERAL SKIN EXAM: no rashes or lesions noted Course Vital Signs: Vital signs: Vital Signs Temperature 98.0 F 09/12/24 17:49 Pulse Rate 86 09/12/24 20:26 Respiratory Rate 16 09/12/24 18:59 Blood Pressure 111/78 09/12/24 20:26 Pulse Oximetry 96 09/12/24 20:26 Oxygen Delivery Me thod Room Air 09/12/24 18:59 MDM - Neck Pain/Injury Medical Decision Making Patient had ACDF surgery 2 months ago, reinjured it 2 weeks and wanted reevaluation. Has been taking muscle relaxers no relief. On exam he was tender to the left lateral neck, no spinous process tenderness. Did have full range of motion and there were no other concerning historical elements or physical exam findings. X-ray showing no complications postsurgically, he is noting somewhat relief after receiving Homer, Decadron, and Norflex here. Will have him call his surgeon to schedule follow-up appointment as he has not seen them since surgery, and have him return with any new or worsening. Lab Data Radiology Impressions Cervical Spine X-Ray 09/12/24 18:00 IMPRESSION: As above. All radiology interpretation(s) finalized by discharge Discharge Plan Discharge Patient Disposition: Home Clinical Impression: Neck strain Qualifiers: Encounter type: initial encounter Qualified Code(s): S16.1XXA - Strain of muscle, fascia and tendon at neck level, initial encounter Condition: Stable Prescriptions: No Action multivitamin with folic acid [Thera] 400 mcg tablet 1 tab PO DAILY Patient Comments: pt stated no money for this med duloxetine [Cymbalta] 60 mg capsule,delayed release(DR/EC) 120 mg PO DAILY Qty: 60 1RF olanzapine 10 mg tablet 20 mg PO BEDTIME Qty: 60 1RF hydroxyzine HCl 50 mg tablet 50 mg PO .HS Qty: 30 1RF (DME) knee scooter See Rx Instructions .Route .MEDSUPPLY Qty: 1 0RF Rx Instructions: As directed diclofenac sodium 75 mg tablet,delayed release (DR/EC) 75 mg PO Q12H PRN (Reason: pain) Qty: 20 0RF hydrocodone-acetaminophen 5-325 mg tablet 1 tab PO Q6H PRN (Reason: pain) Qty: 14 0RF Discharge Orders: Discharge ED (Routine); Ordered 09/12/24 Ordered By: Juan Salas Referrals: Michelle Ross MD [Primary Care Provider] - Patient Instructions: Cervical Strain (ED) Activity Restrictions/Additional Instructions: Please follow-up with your surgeon for further evaluation. Gentle range of motion exercises as tolerated. Apply heat to your neck for added relief. Return with any new or worsening. Coding Level of Care Code ED Software Developer for Justin Sadler
[2024-09-12] MEDS: HYDROcodone-acetaminophen 7.5-325 mg Tablet 1 TAB PO (18:54)
[2024-09-12] MEDS: orphenadrine 30 mg/mL Inj 2 mL 60 MG IM (18:54)
[2024-09-12] MEDS: dexamethasone 10 mg/mL INJ IM (18:55)
[2024-09-12 18:59] VITALS: BP 131/89; PULSE 101; RESP 16; O2SAT 97
[2024-09-12 20:26] VITALS: BP 111/78; PULSE 86; O2SAT 96
== END 2024-09-12 20:25 | disposition home or self-care (01) ==
PROVIDERS: Emergency Provider Physician Assistant; PCP Family Medicine
DX: S16.1XXA Strain of muscle, fascia and tendon at neck level, initial encounter (principal); F17.210 Nicotine dependence, cigarettes, uncomplicated; X58.XXXA Exposure to other specified factors, initial encounter
CPT/HCPCS: 72040; 96372; 99284; J1100; J2360

== ENCOUNTER 2024-10-18 15:51 | Emergency (ER) | payer MEDICAID, SELFPAY ==
[2024-10-18 16:38] VITALS: BP 143/92; PULSE 92; RESP 16; TEMP 36.8; O2SAT 96; BMI 30.1
== END 2024-10-18 18:52 | disposition left against medical advice (07) ==
PROVIDERS: Emergency Provider Nurse Practitioner; PCP Family Medicine
DX: Z53.21 Procedure and treatment not carried out due to patient leaving prior to being seen by health care provider (principal)